=== PATIENT | male | born 1945 | race African-American/Black ===

== ENCOUNTER → 2020-09-02 10:50 | Outpatient (BNVA) | payer MEDICARE, MEDICAID, SELFPAY | PROVIDERS: PCP Internal Medicine; Visit Provider Internal Medicine Gastroenterology | DX: K31.819 Angiodysplasia of stomach and duodenum without bleeding (principal); K21.9 Gastro-esophageal reflux disease without esophagitis; D50.0 Iron deficiency anemia secondary to blood loss (chronic); R13.10 Dysphagia, unspecified; Z79.899 Other long term (current) drug therapy; Z87.891 Personal history of nicotine dependence | CPT/HCPCS: Q3014 ==

== ENCOUNTER 2020-09-07 10:09 | Outpatient (REF) | payer MEDICARE, MEDICAID, SELFPAY ==
[2020-09-07 10:44] LABS: MANUAL DIFF FLAG NO
[2020-09-07 10:52] LABS: INTERNATIONAL NORM RATIO 1.1 (0.9-1.1); Prothrombin Time 12.8 SEC (10.8-13.0)
[2020-09-07 10:53] LABS: Basophils Percent Auto 0.4 % (0-2); Eosinophils Absolute Auto 0.1 X10*3/uL (0.0-0.4); Hematocrit 41.1 % (42-52); Hemoglobin 12.8 g/dl (14.0-18.0); Imm Gran Abs Auto 0.01 X10*3/uL (0.00-0.03); Imm Gran Pct Auto 0.1 % (0.0-0.4); Lymphocytes Absolute Auto 1.2 X10*3/uL (1.2-4.9); Mean Corpuscular HGB Conc 31.1 g/dl (31.0-36.0); Mean Corpuscular Hemoglobin 29.4 pg (27.0-33.0); Mean Corpuscular Volume 94.5 fL (80-98); Mean Platelet Volume 8.9 fL (9.4-12.4); Monocytes Absolute Auto 0.5 X10*3/uL (0.1-1.2); Monocytes Percent Auto 7.2 % (2-11); Neutrophils Absolute Auto 5.2 X10*3/uL (2.0-8.3); Neutrophils Percent Auto 74.3 % (45-73); Platelet Count 230 X10*3/uL (160-400); Red Blood Count 4.35 X10*6/uL (4.60-5.80); Red Cell Distribution Width 12.8 % (11.0-16.0); White Blood Count 7.1 X10*3/uL (4.8-10.8)
[2020-09-07 11:18] LABS: Alanine Aminotransferase 11 U/L (0-40); Albumin Level 4.3 g/dL (3.5-5.0); Alkaline Phosphatase 77 U/L (39-117); Anion Gap 12 (12-20); Aspartate Amino Transferase 16 U/L (5-37); Bilirubin Total 0.4 mg/dL (0.0-1.0); Blood Urea Nitrogen 15 mg/dL (9-16); Calcium 9.5 mg/dL (8.4-10.2); Carbon Dioxide 32 mmol/L (22-29); Chloride 103 mmol/L (96-108); Estimated Glomerular Filt Rate > 60; Glucose Random 97 mg/dL (60-115); Lipase 10 U/L (8-78); Potassium 4.5 mmol/L (3.3-5.1); Sodium 142 mmol/L (135-145); Total Protein 6.8 g/dL (6.5-8.0)
[2020-09-07 11:37] LABS: Ferritin 33 ng/mL (20-250)
== END 2020-09-07 10:10 | disposition home or self-care (01) ==
LOC: HO.LAB 10:09
PROVIDERS: PCP Internal Medicine; Visit Provider Internal Medicine Gastroenterology
DX: D50.0 Iron deficiency anemia secondary to blood loss (chronic) (principal)
CPT/HCPCS: 36415; 80053; 82728; 83690; 85025; 85610

== ENCOUNTER 2020-09-21 13:50 | Outpatient (REF) | payer MEDICARE, MEDICAID, SELFPAY ==
[2020-09-21 14:13] LABS: OBS Int Ctl Valid YES; OBS1 POS (NEG); OBS2 POS (NEG); OBS3 POS (NEG)
== END 2020-09-21 13:51 | disposition home or self-care (01) ==
LOC: HO.LNP 13:50
PROVIDERS: Visit Provider Internal Medicine Gastroenterology
DX: D50.0 Iron deficiency anemia secondary to blood loss (chronic) (principal)
CPT/HCPCS: 82270

== ENCOUNTER → 2020-10-14 11:46 | Outpatient (BNVA) | payer MEDICARE, MEDICAID, SELFPAY | PROVIDERS: PCP Internal Medicine; Visit Provider Internal Medicine Gastroenterology | DX: Z13.89 Encounter for screening for other disorder (principal) | CPT/HCPCS: Q3014 ==

== ENCOUNTER 2020-10-20 20:38 | Emergency (ER) | payer MEDICARE, MEDICAID, SELFPAY ==
--- NOTE | ~2020-10-20 | CT_ITS ---
EXAMINATION: CT ABDOMEN AND PELVIS WITH CONTRAST CLINICAL INFORMATION: Abdominal pain. COMPARISON: 02/10/2013 TECHNIQUE: Multidetector volumetric images were obtained from the superior aspect of the liver through the pubic symphysis following administration 85 mL of Omnipaque 350 intravenous contrast. Sagittal and coronal reformatted images were obtained on the technologist's workstation. Oral contrast: No This CT examination was performed using dose optimization techniques as appropriate, variously including the following: *Automated exposure control *Adjustment of mA and/or kV according to patient size (this includes techniques or standardized protocols for targeted exams where dose is matched to indication/reason for exam; i.e. extremities or head) *Use of iterative reconstruction technique DLP: 778 mGy-cm FINDINGS: LUNG BASES: The visualized lung bases are unremarkable. Mild wall thickening is evident in the distal esophagus, potentially due to esophagitis. LIVER, GALLBLADDER, AND BILIARY TREE: The liver is normal in size, shape, and attenuation. No biliary ductal dilatation is present. Multiple small subcentimeter foci of hypoattenuation are again seen in the liver, most likely corresponding to small hepatic cysts. The largest of these measures 9 mm in diameter and in segment 4A and has a density of 13 Hounsfield units. Von Meyenburg complexes (biliary hamartomas) are also possible, though less likely. The gallbladder is unremarkable with no evidence of radiopaque gallstones, gallbladder wall thickening, or obvious pericholecystic inflammatory changes. PANCREAS: Unremarkable. SPLEEN: Unremarkable. ADRENAL GLANDS: Unremarkable. KIDNEYS AND URETERS: The kidneys are normal in size, shape, and attenuation. No hydronephrosis, hydroureter, or calculi seen. Trace bilateral perinephric stranding. BLADDER: Empty. There is associated bladder wall thickening with surrounding fat stranding, however, raising the possibility of cystitis. There is a small associated urachal remnant. GASTROINTESTINAL TRACT: As noted above, there is mild wall thickening the distal esophagus. Stomach, small bowel, and colon are normal in caliber. There is mild to moderate colonic diverticulosis. In the proximal descending colon around the splenic flexure, there is wall thickening and trace surrounding fat stranding which could be due to very mild colitis. The specificity of this is somewhat limited given the collapsed, decompressed nature of the colon in this region. Appendix is normal. No intraperitoneal free fluid or free air. ABDOMINAL WALL: Small fat-containing umbilical hernia. LYMPH NODES: Normal. VASCULAR: Atherosclerotic calcifications are present in the abdominal aorta. No aneurysmal dilatation. PELVIC VISCERA: The prostate and seminal vesicles are unremarkable. OSSEOUS STRUCTURES: Marked degenerative disc disease is evident in the lower lumbar spine at L4-L5 and L5-S1. No acute osseous abnormalities. Mild osteoarthritis in the hips and SI joints. CT/CT abdomen pelvis w con IMPRESSION: 1. Mild to moderate colonic diverticulosis without evidence of acute diverticulitis. There is mild generalized wall thickening in the proximal descending colon with trace haziness of the surrounding fat. This is favored to be due to nondistention of an empty segment of colon, though mild colitis is possible, particularly if the patient has the corresponding lower GI symptoms. 2. Wall thickening and surrounding fat stranding at an empty bladder. Recommend correlation with urinalysis is this may correspond to bladder inflammation/cystitis. 3. Marked degenerative disc disease in the lower lumbar spine.
[2020-10-20 23:30] VITALS: BP 103/57; PULSE 80; RESP 18; TEMP 36.1; O2SAT 99
[2020-10-21 00:43] VITALS: BP 131/72; PULSE 82; RESP 18; TEMP 36.9; O2SAT 98; BMI 35.4
[2020-10-21 01:11] LABS: Basophils Percent Auto 0.1 % (0-2); Eosinophils Percent Auto 0.2 % (0-4); Hemoglobin 12.7 g/dl (14.0-18.0); Imm Gran Abs Auto 0.03 X10*3/uL (0.00-0.03); Imm Gran Pct Auto 0.3 % (0.0-0.4); Lymphocytes Percent Auto 10.5 % (20-40); MANUAL DIFF FLAG NO; Mean Corpuscular HGB Conc 31.8 g/dl (31.0-36.0); Mean Corpuscular Volume 94.6 fL (80-98); Mean Platelet Volume 8.4 fL (9.4-12.4); Monocytes Absolute Auto 0.6 X10*3/uL (0.1-1.2); Monocytes Percent Auto 5.8 % (2-11); Neutrophils Absolute Auto 7.8 X10*3/uL (2.0-8.3); Neutrophils Percent Auto 83.1 % (45-73); Platelet Count 188 X10*3/uL (160-400); Red Blood Count 4.23 X10*6/uL (4.60-5.80); Red Cell Distribution Width 13.2 % (11.0-16.0); White Blood Count 9.4 X10*3/uL (4.8-10.8)
[2020-10-21 01:13] LABS: Appearance Urine CLEAR; Color Urine DARK YELLOW; Glucose Urine UA NEG (NEG); Leukocyte Esterase Urine NEG (NEG); Nitrite Urine NEG (NEG); PH 5.5 (5.0-8.0); Specific Gravity - Urine >= 1.030 (1.005-1.025); UACC CULT NO; Urine Blood NEG (NEG); Urine Ketones 5 MG/DL (NEG); Urine Protein NEG (NEG-TRACE)
[2020-10-21 01:37] LABS: Calcium Oxalate Crystals Urine 2+ /LPF; Mucus Urine 2+ /LPF; RBC Urine 0 /HPF (0); Squamous Epithelial Cell Urine TRACE /LPF; WBC Urine 0-2 /HPF (0-4)
[2020-10-21 01:39] LABS: Alanine Aminotransferase 15 U/L (0-40); Albumin Level 4.3 g/dL (3.5-5.0); Alkaline Phosphatase 70 U/L (39-117); Anion Gap 9 (12-20); Aspartate Amino Transferase 15 U/L (5-37); Bilirubin Total 0.6 mg/dL (0.0-1.0); Blood Urea Nitrogen 14 mg/dL (9-16); Carbon Dioxide 32 mmol/L (22-29); Chloride 103 mmol/L (96-108); Creatinine Clr Calc Pharmacy 87.5; Estimated Glomerular Filt Rate > 60; Glucose Random 118 mg/dL (60-115); Lipase 5 U/L (8-78); Sodium 140 mmol/L (135-145); Total Protein 6.6 g/dL (6.5-8.0)
--- NOTE | 2020-10-21 02:06 | ED.ABDPAIN ---
HPI - Abdominal Pain General Chief Complaint: Abdominal Pain Stated Complaint: Abd Pain Time Seen by Provider: 10/21/20 02:05 History of Present Illness HPI narrative: Patient is a 75-year-old male presents today with having abdominal pain over the lower abdomen. There is no fever no chills. The pain is bloating like. Patient had diarrhea x1 which was yellow. No bloody stool. No coughing or congestion or upper respiratory symptoms. No diaphoresis. Patient is from home. No surgery to the abdomen in the past. The symptom has improved with time. There is no change in diet. Patient vomited x1 as well Related Data Home Medications Medication Instructions Recorded Confirmed abiraterone 250 mg tablet 1,000 mg PO DAILY tab 09/02/20 10/14/20 amitriptyline 50 mg tablet 50 mg PO BEDTIME 09/02/20 10/14/20 ascorbic acid (vitamin C) 500 mg 500 mg PO DAILY 09/02/20 10/14/20 tablet aspirin 81 mg chewable tablet 81 mg PO DAILY 09/02/20 10/14/20 ferrous sulfate 325 mg (65 mg 325 mg PO DAILY 09/02/20 10/14/20 iron) tablet leuprolide (3 month) 22.5 mg (3 22.5 mg IM [id number] 09/02/20 10/14/20 month) intramuscular syringe kit omeprazole 40 mg capsule,delayed 40 mg PO DAILY 09/02/20 10/14/20 release prednisone 5 mg tablet 5 mg PO BID 09/02/20 10/14/20 sacubitril 24 mg-valsartan 26 mg 1 tab PO BID 09/02/20 10/14/20 tablet simvastatin 80 mg tablet 80 mg PO DAILY 09/02/20 10/14/20 spironolactone 25 mg tablet 25 mg PO DAILY 09/02/20 10/14/20 Allergies Allergy/AdvReac Type Severity Reaction Status Date / Time acetaminophen [From TYLENOL] AdvReac Unknown CAN'T TAKE Verified 10/14/20 11:47 BECAUSE OF A HEART CONDITION PER PT ibuprofen [IBUPROFEN] AdvReac Unknown CAN'T TAKE Verified 10/14/20 11:47 BECAUSE OF LIVER PROBLEMS PER PT. Review of Systems Review of Systems Constitutional: No Weight loss, No Fever, No Chills, No Night Sweats, No Fatigue, No Malaise ENT/Mouth: No Hearing loss, No Ear Pain, No Nasal Congestion, No Sinus Pain, No Hoarseness, No sore throat, No Rhinorrhea, No Swallowing Difficulty Eyes: No Eye Pain, No Swelling, No Redness, No Foreign Body, No Discharge, No Vision Changes Cardiovascular: No Chest Pain, No SOB, No Dyspnea on Exertion, No Orthopnea, No Edema, No Palpitations Respiratory: No Cough, No Sputum, No Wheezing, No Smoke Exposure, No Dyspnea Gastrointestinal: Positive nausea vomiting positive diarrhea positive abdominal pain Genitourinary: no irregular bleeding, No Dysuria, No Urinary Frequency, No Hematuria, No Urinary Incontinence, No Urgency, No Flank Pain, No Urinary Flow Changes, No Hesitancy Musculoskeletal: No joint pain, No Myalgias, No Joint Swelling Skin: No Skin Lesions, No rash Neuro: No Weakness, No Numbness, No Paresthesias, No Loss of Consciousness, No Dizziness, No Headache Psych: No Anxiety/Panic, No Depression, No SI/HI/AH/VH, No Social Issues, Heme/Lymph: No Bruising, No Bleeding,No Lymphadenopathy Endocrine: No Polyuria, No Polydipsia, No Temperature Intolerance Physical Exam Vital Signs: Vital Signs: Last Vital Signs Temp 98.4 F 10/21/20 00:43 Pulse 82 10/21/20 00:43 Resp 18 10/21/20 00:43 BP 131/72 10/21/20 00:43 Pulse Ox 98 10/21/20 00:43 Body Mass Index 35.4 Appearance: Alert. Oriented X3. No acute distress. Eyes: Pupils equal, round and reactive to light. ENT: Pharynx normal. Neck: Normal inspection. Neck supple. No lymph nodes noted. No crepitus CVS: Normal heart rate and rhythm. Pulses normal. Normal S1 and S2 Respiratory: No respiratory distress. Breath sounds normal. No Wheezing. No rales Abdomen: Soft and nontender. No rigidity. No distention. good BS x4 Skin: Skin warm and dry. Normal skin color. Normal skin turgor. Extremities: No lower extremity edema. Neurovascular intact to all extremities. No Lacerations. No Rash Neuro: Oriented X 3. No motor deficit. No sensory deficit. Moving all extermities. No slurred speech MDM - Abdominal Pain MDM Narrative Medical decision making narrative: Patient's white count was normal. CT scan of the abdomen did not show any acute evidence of diverticulitis. No abscess no perforation. No evidence of appendicitis. Will obtain bladder scan to ensure patient does not have obstruction. Will discharge patient home. Close follow-up outpatient basis. In stable condition. Patient's postvoid residual came back at 22. There is no evidence of urinary retention. Patient is to be discharged. Differential Diagnosis Differential diagnosis: Likely abdominal pain, aortic dissection, acute appendicitis, bowel perforation, calculus of kidney, constipation, diverticulitis, endometriosis, gastroenteritis, mesenteric ischemia, pancreatitis, peptic ulcer disease, renal colic and small bowel obstruction Medical Records Attestation: I reviewed the patient's medical records. Lab Data Attestation: I reviewed the patient's lab results. Result diagrams: 10/21/20 01:05 10/21/20 01:05 Labs: Lab Results 10/21/20 10/21/20 10/21/20 Range/Units 01:05 01:05 01:05 WBC 9.4 (4.8-10.8) X10*3/uL RBC 4.23 L (4.60-5.80) X10*6/uL Hgb 12.7 L (14.0-18.0) g/dl Hct 40.0 L (42-52) % MCV 94.6 (80-98) fL MCH 30.0 (27.0-33.0) pg MCHC 31.8 (31.0-36.0) g/dl RDW 13.2 (11.0-16.0) % Plt Count 188 (160-400) X10*3/uL MPV 8.4 L (9.4-12.4) fL Immature Gran % (Auto) 0.3 (0.0-0.4) % Neut % (Auto) 83.1 H (45-73) % Lymph % (Auto) 10.5 L (20-40) % [place] % (Auto) 5.8 (2-11) % Eos % (Auto) 0.2 (0-4) % Baso % (Auto) 0.1 (0-2) % Lymph # (Auto) 1.0 L (1.2-4.9) X10*3/uL [place] # (Auto) 0.6 (0.1-1.2) X10*3/uL Eos # (Auto) 0.0 (0.0-0.4) X10*3/uL Baso # (Auto) 0.0 (0.0-0.2) X10*3/uL Abs Immat Gran (auto) 0.03 (0.00-0.03) X10*3/uL Absolute Neuts (auto) 7.8 (2.0-8.3) X10*3/uL Absolute Nucleated RBC 0.000 (0.0-0.012) X10*3/uL Nucleated RBC % (auto) 0.0 (0.0-0.2) /100WBC Hold Blue Top SEE NOTE Sodium 140 (135-145) mmol/L Potassium 4.0 (3.3-5.1) mmol/L Chloride 103 (96-108) mmol/L Carbon Dioxide 32 H (22-29) mmol/L Anion Gap 9 L (12-20) BUN 14 (9-16) mg/dL Creatinine 0.90 (0.5-1.4) mg/dL Estim Creat Clear Calc 87.5 Estimated GFR > 60 Random Glucose 118 H (60-115) mg/dL Calcium 9.0 (8.4-10.2) mg/dL Total Bilirubin 0.6 (0.0-1.0) mg/dL AST 15 (5-37) U/L ALT 15 (0-40) U/L Alkaline Phosphatase 70 (39-117) U/L Total Protein 6.6 (6.5-8.0) g/dL Albumin 4.3 (3.5-5.0) g/dL Lipase 5 L (8-78) U/L Urine Color Urine Appearance Urine pH (5.0-8.0) Ur Specific [place] (1.005-1.025) Urine Protein (NEG-TRACE) MG/DL Urine Glucose (UA) (NEG) MG/DL Urine Ketones (NEG) MG/DL Urine Blood (NEG) Urine Nitrite (NEG) Ur Leukocyte Esterase (NEG) Urine RBC (0) /HPF Urine WBC (0-4) /HPF Ur Squamous Epith Cells /LPF Calcium Oxalate Crystal /LPF Urine Bacteria /LPF Urine Mucus /LPF 10/21/20 Range/Units 01:06 WBC (4.8-10.8) X10*3/uL RBC (4.60-5.80) X10*6/uL Hgb (14.0-18.0) g/dl Hct (42-52) % MCV (80-98) fL MCH (27.0-33.0) pg MCHC (31.0-36.0) g/dl RDW (11.0-16.0) % Plt Count (160-400) X10*3/uL MPV (9.4-12.4) fL Immature Gran % (Auto) (0.0-0.4) % Neut % (Auto) (45-73) % Lymph % (Auto) (20-40) % [place] % (Auto) (2-11) % Eos % (Auto) (0-4) % Baso % (Auto) (0-2) % Lymph # (Auto) (1.2-4.9) X10*3/uL [place] # (Auto) (0.1-1.2) X10*3/uL Eos # (Auto) (0.0-0.4) X10*3/uL Baso # (Auto) (0.0-0.2) X10*3/uL Abs Immat Gran (auto) (0.00-0.03) X10*3/uL Absolute Neuts (auto) (2.0-8.3) X10*3/uL Absolute Nucleated RBC (0.0-0.012) X10*3/uL Nucleated RBC % (auto) (0.0-0.2) /100WBC Hold Blue Top Sodium (135-145) mmol/L Potassium (3.3-5.1) mmol/L Chloride (96-108) mmol/L Carbon Dioxide (22-29) mmol/L Anion Gap (12-20) BUN (9-16) mg/dL Creatinine (0.5-1.4) mg/dL Estim Creat Clear Calc Estimated GFR Random Glucose (60-115) mg/dL Calcium (8.4-10.2) mg/dL Total Bilirubin (0.0-1.0) mg/dL AST (5-37) U/L ALT (0-40) U/L Alkaline Phosphatase (39-117) U/L Total Protein (6.5-8.0) g/dL Albumin (3.5-5.0) g/dL Lipase (8-78) U/L Urine Color DARK YELLOW Urine Appearance CLEAR Urine pH 5.5 (5.0-8.0) Ur Specific [place] >= 1.030 H (1.005-1.025) Urine Protein NEG (NEG-TRACE) MG/DL Urine Glucose (UA) NEG (NEG) MG/DL Urine Ketones 5 (NEG) MG/DL Urine Blood NEG (NEG) Urine Nitrite NEG (NEG) Ur Leukocyte Esterase NEG (NEG) Urine RBC 0 (0) /HPF Urine WBC 0-2 (0-4) /HPF Ur Squamous Epith Cells TRACE /LPF Calcium Oxalate Crystal 2+ /LPF Urine Bacteria NONE /LPF Urine Mucus 2+ /LPF Discharge Plan Discharge Clinical Impression: Abdominal pain Patient Disposition: Home, Self-Care Instructions: Abdominal Pain (ED) Prescriptions: No Action simvastatin 80 mg tablet 80 mg PO DAILY RF: 0 omeprazole 40 mg capsule,delayed release(DR/EC) 40 mg PO DAILY RF: 0 spironolactone 25 mg tablet 25 mg PO DAILY RF: 0 amitriptyline 50 mg tablet 50 mg PO BEDTIME RF: 0 Lupron Depot (3 month) 22.5 mg syringe kit 22.5 mg IM [id number] RF: 0 ferrous sulfate 325 mg (65 mg iron) tablet 325 mg PO DAILY RF: 0 prednisone 5 mg tablet 5 mg PO BID RF: 0 abiraterone [Zytiga] 250 mg tablet 1,000 mg PO DAILY RF: 0 aspirin 81 mg tablet,chewable 81 mg PO DAILY RF: 0 sacubitril-valsartan 24-26 mg tablet 1 tab PO BID RF: 0 ascorbic acid (vitamin C) 500 mg tablet 500 mg PO DAILY RF: 0 PMFSH Past Medical History Medical History Depression History of lung cancer History of prostate cancer OA (osteoarthritis) of shoulder Surgical History History of esophagogastroduodenoscopy (EGD) History of surgery of head Hx of colonoscopy Hx of hernia repair Family History Family History Father History of prostate cancer Brother History of prostate cancer History of throat cancer Mother No problems noted. Social History Social History Household Members: Spouse Alcohol intake: current Alcohol intake frequency: does not drink Smoking Status: Never smoker Advance Directives: No Current occupational status: disabled
[2020-10-21 03:38] VITALS: BP 99/49; PULSE 75; RESP 16; O2SAT 97
== END 2020-10-21 03:42 | disposition home or self-care (01) ==
PROVIDERS: Emergency Provider Emergency Medicine Emergency Medical Services; PCP Internal Medicine
DX: R10.30 Lower abdominal pain, unspecified (principal); Z85.118 Personal history of other malignant neoplasm of bronchus and lung; Z85.46 Personal history of malignant neoplasm of prostate
CPT/HCPCS: 36415; 51798; 74177; 80053; 81001; 83690; 85025; 99284; Q9967

== ENCOUNTER → 2021-01-27 13:52 | Outpatient (BNVA) | payer MEDICARE, MEDICAID, SELFPAY | PROVIDERS: PCP Internal Medicine; Visit Provider Internal Medicine Gastroenterology | DX: Z13.89 Encounter for screening for other disorder (principal) | CPT/HCPCS: Q3014 ==

== ENCOUNTER → 2021-06-02 14:10 | Outpatient (BNVA) | payer MEDICARE, MEDICAID, SELFPAY | PROVIDERS: PCP Internal Medicine; Visit Provider Internal Medicine Gastroenterology | DX: Z13.89 Encounter for screening for other disorder (principal) | CPT/HCPCS: Q3014 ==

== ENCOUNTER 2021-06-24 11:42 | Outpatient (REF) | payer MEDICARE, MEDICAID, SELFPAY ==
--- NOTE | ~2021-06-24 | XR_ITS ---
EXAMINATION: XR CHEST CLINICAL INFORMATION: Nonspecific reaction to skin test for TB. COMPARISON: Chest radiograph dated from 11/24/2019. TECHNIQUE: 2 views of the chest were obtained. FINDINGS: Left-sided pacemaker/AICD with single lead in similar positioning to prior overlying the right ventricle. Unchanged appearance of the cardiomediastinal silhouette. On the lateral view, there is a posterior airspace opacity overlying the lung bases. Otherwise, lungs are clear. No pleural effusions or pneumothorax. No acute osseous abnormalities. Thoracic spondylosis. XR/XR chest 2V IMPRESSION: Questionable airspace opacity in the posterior aspect of the lung bases on the lateral view which could potentially be artifactual and related with silhouetting from an asymmetrically elevated left hemidiaphragm. However, an infiltrate and pneumonia cannot be entirely excluded. Correlate clinically and if indicated consider correlation with a CT chest.
== END 2021-06-24 11:43 | disposition home or self-care (01) ==
LOC: HO.XRAY 11:42
PROVIDERS: PCP Internal Medicine; Visit Provider Internal Medicine
DX: R76.11 Nonspecific reaction to tuberculin skin test without active tuberculosis (principal)
CPT/HCPCS: 71046

== ENCOUNTER 2021-09-09 11:29 | Emergency (ER) | payer MEDICARE, MEDICAID, SELFPAY ==
--- NOTE | ~2021-09-09 | XR_ITS ---
EXAMINATION: XR CHEST CLINICAL INFORMATION: Cough COMPARISON: Chest x-ray 06/24/2021 TECHNIQUE: 2 views of the chest were obtained. FINDINGS: Cardiac silhouette demonstrates stable prominence. Unchanged orientation of single lead AICD. The lungs are adequately aerated. There is no lobar consolidation. No pleural effusion or pneumothorax. XR/XR chest 2V IMPRESSION: No acute pulmonary pathology.
[2021-09-09 11:34] VITALS: BP 116/63; PULSE 94; RESP 16; TEMP 36.9; O2SAT 98; BMI 34.2
--- NOTE | 2021-09-09 13:21 | PC.NURSE ---
pt not in mwr or tx area after xray, belongings not present either, pt elouped.
--- NOTE | 2021-09-09 14:10 | ED_ITS ---
HPI - General Adult General Chief complaint: General Medical Stated complaint: GROWTH IN CHEST Time Seen by Provider: 09/09/21 12:00 History of Present Illness HPI narrative: Maori speaking patient was brought to a room, x-ray was ordered and then patient left the department, he never spoke to him and cannot offer a chief complaint as the patient was gone Related Data Home Medications Medication Instructions Recorded Confirmed abiraterone 250 mg tablet 1,000 mg PO DAILY tab 09/02/20 06/02/21 (Zytiga) amitriptyline 50 mg tablet 50 mg PO BEDTIME 09/02/20 06/02/21 ascorbic acid (vitamin C) 500 mg 500 mg PO DAILY 09/02/20 06/02/21 tablet aspirin 81 mg chewable tablet 81 mg PO DAILY 09/02/20 06/02/21 ferrous sulfate 325 mg (65 mg 325 mg PO DAILY 09/02/20 06/02/21 iron) tablet leuprolide (3 month) 22.5 mg (3 22.5 mg IM [id number] 09/02/20 06/02/21 month) intramuscular syringe kit (Lupron Depot) omeprazole 40 mg capsule,delayed 40 mg PO DAILY 09/02/20 06/02/21 release prednisone 5 mg tablet 5 mg PO BID 09/02/20 06/02/21 sacubitril 24 mg-valsartan 26 mg 1 tab PO BID 09/02/20 06/02/21 tablet simvastatin 80 mg tablet 80 mg PO DAILY 09/02/20 06/02/21 spironolactone 25 mg tablet 25 mg PO DAILY 09/02/20 06/02/21 Allergies Allergy/AdvReac Type Severity Reaction Status Date / Time acetaminophen [From AdvReac Unknown CAN'T TAKE Verified 06/02/21 14:12 TYLENOL] BECAUSE OF A HEART CONDITION PER PT ibuprofen [IBUPROFEN] AdvReac Unknown CAN'T TAKE Verified 06/02/21 14:12 BECAUSE OF LIVER PROBLEMS PER PT. PMFSH Past Medical History Medical History Depression History of lung cancer History of prostate cancer OA (osteoarthritis) of shoulder Surgical History History of esophagogastroduodenoscopy (EGD) History of surgery of head Hx of colonoscopy Hx of hernia repair Family History Family History Father History of prostate cancer Brother History of prostate cancer History of throat cancer Mother No problems noted. Social History Social History Household Members: Spouse Alcohol intake: current Alcohol intake frequency: does not drink Advance Directives: No Advance Directives Information Provided: No Current occupational status: disabled Physical Exam Verdana 4l Vital Signs: Verdana 4d Verdana 4d Vital Signs: Verdana 4d Verdana 4Bd Last Vital Signs Verdana 4d Proof Sorter New 4d Proof Sorter New 4d Temp 98.5 F 09/09/21 11:34 Proof Sorter New 4d Pulse 94 09/09/21 11:34 Proof Sorter New 4d Resp 16 09/09/21 11:34 BP 116/63 09/09/21 11:34 Pulse Ox 98 09/09/21 11:34 BMI result Body Mass Index 34.2 Course Course Course Narrative: And never did history of physical on this patient he was brought to the room and got a chest x-ray and then left the department I did review his chest x-ray which was read by the [facility] radiologist and did not reveal any mass or any abnormality Discharge Plan Discharge Clinical Impression: H/O chest x-ray Patient Disposition: Elopement Prescriptions: No Action simvastatin 80 mg tablet 80 mg PO DAILY 0RF omeprazole 40 mg capsule,delayed release(DR/EC) 40 mg PO DAILY 0RF spironolactone 25 mg tablet 25 mg PO DAILY 0RF amitriptyline 50 mg tablet 50 mg PO BEDTIME 0RF Lupron Depot (3 month) 22.5 mg syringe kit 22.5 mg IM [id number] 0RF ferrous sulfate 325 mg (65 mg iron) tablet 325 mg PO DAILY 0RF prednisone 5 mg tablet 5 mg PO BID 0RF abiraterone [Zytiga] 250 mg tablet 1,000 mg PO DAILY 0RF Rx Instructions: must be taken on empty stomach, at least 1 hr before or 2 hrs after a meal/food aspirin 81 mg tablet,chewable 81 mg PO DAILY 0RF sacubitril-valsartan 24-26 mg tablet 1 tab PO BID 0RF ascorbic acid (vitamin C) 500 mg tablet 500 mg PO DAILY 0RF Discharge Date/Time: 09/09/21 13:20
== END 2021-09-09 13:20 | disposition left against medical advice (07) ==
PROVIDERS: Emergency Provider Emergency Medicine; PCP Internal Medicine
DX: Z85.118 Personal history of other malignant neoplasm of bronchus and lung (principal); Z85.46 Personal history of malignant neoplasm of prostate; I10 Essential (primary) hypertension; K21.9 Gastro-esophageal reflux disease without esophagitis; D50.0 Iron deficiency anemia secondary to blood loss (chronic)
CPT/HCPCS: 71046; 99282; 99283

== ENCOUNTER 2021-10-13 09:43 | Emergency (ER) | payer MEDICARE, MEDICAID, SELFPAY ==
[2021-10-13 09:47] VITALS: BP 114/69; PULSE 76; RESP 16; TEMP 36.8; O2SAT 98; BMI 35.6
[2021-10-13 10:03] VITALS: BP 132/68; PULSE 68; RESP 16; TEMP 36.9; O2SAT 96
--- NOTE | 2021-10-13 10:07 | ED_ITS ---
HPI - General Adult General Chief complaint: General Medical Stated complaint: medication Time Seen by Provider: 10/13/21 09:57 Source: patient Mode of arrival: ambulatory Limitations: no limitations History of Present Illness HPI narrative: 76 y/o male with history of ischemic cardiomyopathy, HTN, duodenal AVMs, esophageal dysphagia, GERD, iron deficiency anemia, prostate cancer who presents to the ER for a CT scan. He states he was called by his PCP legal secretary receptionist today and told to come to the ER for a CT scan. He cannot say with the CT scan was for. He states he has prostate cancer that is being followed and he has not had any treatment for it yet. He states he has lesions in his liver. He states there was concern for lesions in the back as well. He denies any severe back pain. He is on chronic opiates and states his pain is well controlled. He has no fever, chills, chest pain, shortness of breath, vomiting, urinary incontinence, weakness, numbness. MD complaint: CT scan Onset (ago): unknown Location: back Radiation: non-radiation Severity: moderate Severity scale (1-10): 5 Quality: aching Pain Consistency: intermittent Relieving factors: medication Exacerbating factors: none Associated symptoms: denies other symptoms Treatments prior to arrival: none Related Data Home Medications Medication Instructions Recorded Confirmed abiraterone 250 mg tablet (Zytiga) 1,000 mg PO DAILY tab 09/02/20 06/02/21 amitriptyline 50 mg tablet 50 mg PO BEDTIME 09/02/20 06/02/21 ascorbic acid (vitamin C) 500 mg 500 mg PO DAILY 09/02/20 06/02/21 tablet aspirin 81 mg chewable tablet 81 mg PO DAILY 09/02/20 06/02/21 ferrous sulfate 325 mg (65 mg 325 mg PO DAILY 09/02/20 06/02/21 iron) tablet leuprolide (3 month) 22.5 mg (3 22.5 mg IM [id number] 09/02/20 06/02/21 month) intramuscular syringe kit (Lupron Depot) omeprazole 40 mg capsule,delayed 40 mg PO DAILY 09/02/20 06/02/21 release prednisone 5 mg tablet 5 mg PO BID 09/02/20 06/02/21 sacubitril 24 mg-valsartan 26 mg 1 tab PO BID 09/02/20 06/02/21 tablet simvastatin 80 mg tablet 80 mg PO DAILY 09/02/20 06/02/21 spironolactone 25 mg tablet 25 mg PO DAILY 09/02/20 06/02/21 Allergies Allergy/AdvReac Type Severity Reaction Status Date / Time acetaminophen [From TYLENOL] AdvReac Unknown CAN'T TAKE Verified 06/02/21 14:12 BECAUSE OF A HEART CONDITION PER PT ibuprofen [IBUPROFEN] AdvReac Unknown CAN'T TAKE Verified 06/02/21 14:12 BECAUSE OF LIVER PROBLEMS PER PT. Review of Systems Review of Systems: Constitutional: No Fever, No Chills ENT/Mouth: No sore throat, No Rhinorrhea Cardiovascular: No Chest Pain, No SOB Respiratory: No Cough, No Sputum Gastrointestinal: No Nausea, No Vomiting, No Diarrhea, No abdominal Pain, No Hematochezia, No Melena Genitourinary: No Dysuria, No Urinary Frequency, No Hematuria, No incontinence Musculoskeletal: No joint pain, No Myalgias Skin: No Skin Lesions, No rash Neuro: No Weakness, No Numbness, No Dizziness, No Headache Heme/Lymph: No Bruising, No Lymphadenopathy Endocrine: No Polyuria, No Polydipsia PMFSH Past Medical History Medical History Depression History of lung cancer History of prostate cancer OA (osteoarthritis) of shoulder Surgical History History of esophagogastroduodenoscopy (EGD) History of surgery of head Hx of colonoscopy Hx of hernia repair Family History Family History Father History of prostate cancer Brother History of prostate cancer History of throat cancer Mother No problems noted. Social History Social History Household Members: Spouse Alcohol intake: current Alcohol intake frequency: does not drink Current occupational status: disabled Physical Exam ED Vital Signs: Vital Signs - 24 hr 10/13/21 09:47 10/13/21 10:03 Temperature 98.2 F 98.4 F Pulse Rate 76 68 Respiratory Rate 16 16 Blood Pressure 114/69 132/68 Pulse Oximetry 98 96 BMI result Body Mass Index 35.6 Appearance: Alert. Oriented X3. No acute distress. Eyes: Pupils equal, round and reactive to light. ENT: Pharynx normal. Neck: Normal inspection. Neck supple. CVS: Normal heart rate and rhythm. Pulses normal. Respiratory: No respiratory distress. Breath sounds normal. Abdomen: Obese, Soft and nontender. +BS x4 Back: no low back tenderness. Normal ROM Skin: Skin warm and dry. Normal skin color. Normal skin turgor. No rashes. Extremities: No lower extremity edema. No calf tenderness. Neuro: Oriented X 3. No motor deficit. No sensory deficit. Course Course Course Narrative: 76-year-old male with a history of HTN, ischemic cardiomyopathy, duodenal AVMs, iron deficiency anemia, prostate cancer with concern for metastasis to the bone presents to the ER for a CT scan. He is a poor historian and states that Dr. Zavala is office sent him into the ER for CT scan today. He states they think that he might have cancer in his back. He needs a biopsy per his report. He has no point min yet for this. He follows with Oncology at [facility] per his report. He denies any severe back pain, any red flag symptoms for low back pain. He admits to some urinary hesitancy but that has been chronic. He has no signs or symptoms of infection. Will call Dr. Zavala's office to see why he was sent to the ER. Reevaluation(s) Reevaluation #1: Spoke with Dr. diez as office nurse who denies the patient was contacted today. There is a note from October 05 stating the patient called for medication refill. When spoke with the patient again he states that he was told to come to the hospital at 10:[address] scan. We confirmed with outpatient radiology that the patient has an outpatient CT scan order. There is no emergent need for a CT scan done in the emergency department. Will discharge the patient from the ER to outpatient radiology for CT scan now. Patient agrees with plan. Critical Care Time Critical Care Time Critical Care Time: No Discharge Plan Discharge Clinical Impression: Prostate cancer Patient Disposition: Home, Self-Care Instructions: Prostate Cancer (DC) Additional Instructions: Upon discharge from the ER present directly to outpatient radiology for your ordered CT scan. Follow-up with your primary care doctor and your oncologist. Prescriptions: No Action simvastatin 80 mg tablet 80 mg PO DAILY 0RF omeprazole 40 mg capsule,delayed release(DR/EC) 40 mg PO DAILY 0RF spironolactone 25 mg tablet 25 mg PO DAILY 0RF amitriptyline 50 mg tablet 50 mg PO BEDTIME 0RF Lupron Depot (3 month) 22.5 mg syringe kit 22.5 mg IM [id number] 0RF ferrous sulfate 325 mg (65 mg iron) tablet 325 mg PO DAILY 0RF prednisone 5 mg tablet 5 mg PO BID 0RF abiraterone [Zytiga] 250 mg tablet 1,000 mg PO DAILY 0RF Rx Instructions: must be taken on empty stomach, at least 1 hr before or 2 hrs after a meal/food aspirin 81 mg tablet,chewable 81 mg PO DAILY 0RF sacubitril-valsartan 24-26 mg tablet 1 tab PO BID 0RF ascorbic acid (vitamin C) 500 mg tablet 500 mg PO DAILY 0RF Referrals: Renata Duckworth MD [Primary Care Provider] - 1 week
== END 2021-10-13 10:54 | disposition home or self-care (01) ==
LOC: HO.ED 10:47
PROVIDERS: Emergency Provider Emergency Medicine; PCP Internal Medicine
DX: C61 Malignant neoplasm of prostate (principal); I10 Essential (primary) hypertension; I25.5 Ischemic cardiomyopathy
CPT/HCPCS: 99283

== ENCOUNTER 2021-10-13 10:47 | Outpatient (REF) | payer MEDICARE, MEDICAID, SELFPAY ==
--- NOTE | ~2021-10-13 | CT_ITS ---
EXAMINATION: CT CHEST WITHOUT CONTRAST CLINICAL INFORMATION: Prostate cancer COMPARISON: No prior chest CT . Abdominal CT 10/21/2020. TECHNIQUE: Multidetector volumetric CT imaging of the chest was done. Axial MIP volume rendering provided. Sagittal and coronal reformatted images were obtained. This CT examination was performed using dose optimization techniques as appropriate, variously including the following: *Automated exposure control *Adjustment of mA and/or kV according to patient size (this includes techniques or standardized protocols for targeted exams where dose is matched to indication/reason for exam; i.e. 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 LUNGS: The central airways are patent. Minimal basilar atelectasis bilaterally. No dense consolidation. No pneumothorax. No pulmonary nodules. MEDIASTINUM: Normal heart size. Coronary artery calcifications noted. Pacer lead is seen at the right ventricle. No pericardial effusion. No mediastinal lymphadenopathy. The thyroid gland is unremarkable. PLEURA: There is no pleural effusion. No pleural mass or thickening. AXILLA: No lymphadenopathy. UPPER ABDOMEN: 1.6 cm right adrenal gland nodule, new from the prior. This is indeterminant by Hounsfield unit measurement. OSSEOUS STRUCTURES: No acute or suspicious osseous abnormality. Mild degenerative changes of the spine. No osseous lesions. CT/CT chest wo con IMPRESSION: No suspicious findings within the chest to suggest metastatic disease. There is a new right adrenal gland nodule which measures 1.6 cm when compared to prior CT from 10/21/2020. This does raise concern for metastatic disease. Fleischner guidelines were followed.
== END 2021-10-13 10:48 | disposition home or self-care (01) ==
LOC: HO.CT 10:47
PROVIDERS: PCP Internal Medicine; Visit Provider Internal Medicine
DX: C61 Malignant neoplasm of prostate (principal)
CPT/HCPCS: 71250

== ENCOUNTER → 2021-11-17 12:44 | Outpatient (BNVA) | payer MEDICARE, MEDICAID, SELFPAY | PROVIDERS: PCP Internal Medicine; Referring Provider Internal Medicine; Visit Provider Internal Medicine Gastroenterology | DX: D50.0 Iron deficiency anemia secondary to blood loss (chronic) (principal); K31.819 Angiodysplasia of stomach and duodenum without bleeding; R13.10 Dysphagia, unspecified; R10.30 Lower abdominal pain, unspecified; Z86.010 Personal history of colon polyps; Z79.899 Other long term (current) drug therapy | CPT/HCPCS: 99212 ==

== ENCOUNTER → 2022-03-30 12:49 | Outpatient (BNVA) | payer MEDICARE, MEDICAID, SELFPAY | PROVIDERS: PCP Internal Medicine; Visit Provider Internal Medicine Gastroenterology | DX: R13.10 Dysphagia, unspecified (principal); R10.30 Lower abdominal pain, unspecified; K59.09 Other constipation; K21.9 Gastro-esophageal reflux disease without esophagitis; D50.0 Iron deficiency anemia secondary to blood loss (chronic); K31.819 Angiodysplasia of stomach and duodenum without bleeding; C64.9 Malignant neoplasm of unspecified kidney, except renal pelvis; Z86.010 Personal history of colon polyps | CPT/HCPCS: 99212 ==

== ENCOUNTER 2024-02-04 13:48 | Outpatient (REF) | payer OTHER, SELFPAY ==
--- NOTE | ~2024-02-04 | XR_ITS ---
EXAMINATION: XR BILATERAL SHOULDER SERIES CLINICAL INFORMATION: Bilateral shoulder pain, right greater than left. COMPARISON: X-rays of the left shoulder June 2013. TECHNIQUE: 4 views of the right and left shoulders. FINDINGS: RIGHT SHOULDER: There is advanced osteoarthritis with joint space narrowing, prominent subchondral cystic change, subchondral sclerosis and marginal osteophytes. Acromioclavicular Joint: Normal. Surrounding bone and soft tissues unremarkable. LEFT SHOULDER: There is advanced osteoarthritis with severe joint space narrowing, subchondral cystic change, subchondral sclerosis and marginal osteophytes. The joint is partially obscured by the left chest wall pacer device. Acromioclavicular Joint: Mild arthrosis. Surrounding bone and soft tissues are otherwise unremarkable. XR/XR shoulder RT min 2V IMPRESSION: RIGHT SHOULDER: Advanced osteoarthritis. LEFT SHOULDER: Advanced osteoarthritis. Slight progression compared with prior x-ray June 2013.
--- NOTE | ~2024-02-04 | XR_ITS ---
EXAMINATION: XR BILATERAL SHOULDER SERIES CLINICAL INFORMATION: Bilateral shoulder pain, right greater than left. COMPARISON: X-rays of the left shoulder June 2013. TECHNIQUE: 4 views of the right and left shoulders. FINDINGS: RIGHT SHOULDER: There is advanced osteoarthritis with joint space narrowing, prominent subchondral cystic change, subchondral sclerosis and marginal osteophytes. Acromioclavicular Joint: Normal. Surrounding bone and soft tissues unremarkable. LEFT SHOULDER: There is advanced osteoarthritis with severe joint space narrowing, subchondral cystic change, subchondral sclerosis and marginal osteophytes. The joint is partially obscured by the left chest wall pacer device. Acromioclavicular Joint: Mild arthrosis. Surrounding bone and soft tissues are otherwise unremarkable. XR/XR shoulder LT min 2V IMPRESSION: RIGHT SHOULDER: Advanced osteoarthritis. LEFT SHOULDER: Advanced osteoarthritis. Slight progression compared with prior x-ray June 2013.
== END 2024-02-04 13:49 | disposition home or self-care (01) ==
LOC: HO.XRAY 13:48
PROVIDERS: PCP Internal Medicine; Referring Provider Internal Medicine; Visit Provider Nurse Practitioner Family
DX: M25.512 Pain in left shoulder (principal); M25.551 Pain in right hip; G89.29 Other chronic pain
CPT/HCPCS: 73030; 99202

== ENCOUNTER 2024-02-04 13:48 | Outpatient (AMB) | payer OTHER, SELFPAY ==
--- NOTE | 2024-02-04 13:53 | A.OFFVIS_ITS ---
Vital Signs 02/04/24 13:58 Height 5 ft 8 in Weight 233 lb BMI 35.4 BP 140/62 H Blood Pressure Location Lt brachial Position Sitting Pulse 72 Pulse Source Pulse Oximeter Pulse Oximetry (%) 96 Oxygen Delivery Method Room Air Intake Visit Reasons: CHRONIC PAIN SYNDROME Intake Note: Pain today 05/15 Pharmacist Assistant Required: Yes Pharmacist Assistant Language: Handle Maker Name: Accompanied by: Spouse Allergies acetaminophen [From TYLENOL] Adverse Reaction (Unknown, Verified 02/04/24 13:57) CAN'T TAKE BECAUSE OF A HEART CONDITION PER PT ibuprofen [IBUPROFEN] Adverse Reaction (Unknown, Verified 02/04/24 13:57) CAN'T TAKE BECAUSE OF LIVER PROBLEMS PER PT. HPI HPI CHRONIC PAIN SYNDROME: Details: Patient is a pleasant 79 years old Icelandic speaking male with history of chronic pain syndrome affecting his shoulders, lower back and knees, continuous opioid therapy, moderate-severe ARABELLA, cardiomyopathy, and metastatic adenocarcinoma of prostate s/p chemotherapy and radiation with repeat CT scan next week (Oncology- Dr. Quan Brush), presents today for initial evaluation of bilateral shoulder and knee pain. Denies any recent trauma, injury or falls. Patient reports shou lder pain is most bothersome and attributes pain to advanced OA. Surgical option was discussed at [facility] per patient but has not reached a finalized decision. He was also seen by Rheumatology provider, Dr. Silva. Bilateral shoulder pain increases with any movement, worse with overhead reaching, pulling or lifting. Patient is not good candidate for NSAIDs. He is currently on CSC for oxycodone 15 mg Q4H prn through his PCP. He also tried extended release opioids such as MS Contin and Fentanyl patch in the past which was discontinued due to overt sedation. Patient was also recently started on gabapentin but is not tolerating this well due to nausea. Patient is allergic to NSAIDs and Tylenol. He reports being out of his opioid medication for 4 days and concerned for withdrawal symptoms, including mild irritability and GI upset symptoms. Patient reports receiving shoulder and knee injections at [facility] 6-12 months ago at [facility] with mild to moderate relief. Reports completing course of physical therapy 5 years ago. Currently he is unable to participate in physical therapy due to significant bilateral shoulder pain. He is interested to undergo intra- articular steroidal injections under fluoroscopy. Patient is hoping for injections to be scheduled this month as he is leaving for vacation to [place] in March. Location: Bilateral shoulders and knees Duration: Chronic pain for many years Characteristics of symptom or complaint: Aching, tingling, numbness, throbbing, dull, sore, heavy, stabbing, sharp Aggravating or associated factors: Movements, pulling, lifting, raising his arms, reaching backside pocket Relieving factors: Oxycodone, rest, activity modification, ice/heat therapy Treatment: Injections, PT PFSH Medical History (Updated 02/04/24 @ 22:38 by EZRA Rodriguez) ARABELLA (obstructive sleep apnea) Depressive disorder GERD (gastroesophageal reflux disease) Osteoarthritis, knee Anemia History of prostate cancer History of lung cancer Depression OA (osteoarthritis) of shoulder Surgical History History of esophagogastroduodenoscopy (EGD) Hx of colonoscopy History of surgery of head Hx of hernia repair Family History Father History of prostate cancer Brother History of prostate cancer History of throat cancer Mother No problems noted. Social History Household Members: Spouse Alcohol intake: current Alcohol intake frequency: does not drink Current occupational status: disabled Review of Systems Const All systems reviewed & are unremarkable except as noted in HPI and below Physical Exam Vital Signs: Last Vital Signs Pulse 72 02/04/24 13:58 BP 140/62 H 02/04/24 13:58 Pulse Ox 96 02/04/24 13:58 Oxygen Delivery Method Room Air 02/04/24 13:58 BMI result Body Mass Index 35.4 General: Appears afebrile. Alert and oriented. Mood and affect appropriate. Follows and participates in conversation appropriately. Respiratory effort is unlabored. No cough. No dyspnea. Able to transition from sit to stand unassisted. Ambulates with slow, antalgic gait, mild limping. Back/Spine/Pelvis Other: Extrem Other: Bilateral shoulders normal to inspection. No erythema or ecchymosis. Patient has difficulty with overhead reach or reaching her back pockets. Flexion and supination against resistance reproduces bilateral shoulder pain. Significant tenderness to palpation to the anterior and posterior aspects of the both shoulders. Unable to adequately assess empty can and drop arm due to patient pain. 4/5 RTC strength bilaterally. Pulses intact in the hands. Muscle tenderness to bilateral upper trapezius muscles. Neck range of motion is limited. No midline tenderness in the cervical, thoracic or lumbar spine. General: Yes capillary refill normal, Yes no clubbing, cyanosis or edema and Yes no calf tenderness Results Reviewed Results Reviewed: No imaging reports are available for review today. Assessment & Plan Assessment & Plan (1) OA (osteoarthritis) of shoulder: Code(s): M19.019 - Primary osteoarthritis, unspecified shoulder Category: Medical (2) Chronic pain of both shoulders: Code(s): M25.511 - Pain in right shoulder; M25.512 - Pain in left shoulder; G89.29 - Other chronic pain Category: Medical (3) Chronic pain of both knees: Code(s): M25.561 - Pain in right knee; M25.562 - Pain in left knee; G89.29 - Other chronic pain Category: Medical Plan Schedule Bilateral shoulder intra-articular steroid injections with local and fluoroscopy. Patient is aware he will be contacted to schedule this procedure. We also discussed diagnostic nerve blocks for both knees and shoulders for potential peripheral nerve stimulation and RFA procedures. Informational pamphlets provided to patient and family in [place]ic. Patient declined these procedures at this time as he is leaving to [place] in next month for vacation. Patient is encouraged to reach out to his PCP for opioid refill due to concerns for withdrawals. He is currently on CSC for oxycodone 15 mg Q4H prn through his PCP and has been out of medication for few days. [facility] reviewed and consistent with patient's history. All questions were answered and the patient is in agreement of plan. Follow-up after injections and sooner as needed. Anticoagulation: Patient on anticoagulation (Aspirin) and instructions given on when to pause with prescribing physician permission. Justification for interventional therapy: ? Patient with average pain > 6/10 ? Patient has exhausted conservative therapy The risks, consequences, alternatives, and benefits of various treatment options were discussed with the patient in great detail, including conservative management, injections and procedures. Patient is aware of hyperglycemic effects of steroids. Orders: Orders XR shoulder LT min 2V 02/04/24 G89.29 - Other chronic pain, M19.019 - Primary osteoarthritis, unspecified shoulder, M25.511 - Pain in right shoulder, M25.512 - Pain in left shoulder XR shoulder RT min 2V 02/04/24 G89.29 - Other chronic pain, M19.019 - Primary osteoarthritis, unspecified shoulder, M25.511 - Pain in right shoulder, M25.512 - Pain in left shoulder Coding Level of Care Code New Pt Level 4 (99568) Diagnoses OA (osteoarthritis) of shoulder M19.019 Chronic pain of both shoulders M25.511; M25.512; G89.29 Chronic pain of both knees M25.561; M25.562; G89.29
[2024-02-04 13:58] VITALS: BP 140/62; PULSE 72; O2SAT 96; BMI 35.4
== END 2024-02-04 14:54 | disposition home or self-care (01) ==
PROVIDERS: PCP Internal Medicine; Referring Provider Internal Medicine; Visit Provider Nurse Practitioner Family
DX: M19.019 Primary osteoarthritis, unspecified shoulder (principal); M25.511 Pain in right shoulder; M25.512 Pain in left shoulder; G89.29 Other chronic pain; M25.561 Pain in right knee; M25.562 Pain in left knee
CPT/HCPCS: 99204

== ENCOUNTER 2024-02-05 15:55 | Outpatient (REF) | payer OTHER, SELFPAY ==
[2024-02-05 18:30] LABS: Alanine Aminotransferase 20 U/L (0-40); Alkaline Phosphatase 63 U/L (39-117); Anion Gap 12 (12-20); Aspartate Amino Transferase 29 U/L (5-37); Bilirubin Total 0.4 mg/dL (0.0-1.0); Blood Urea Nitrogen 11 mg/dL (9-16); Calcium 9.4 mg/dL (8.4-10.2); Carbon Dioxide 28 mmol/L (22-29); Chloride 103 mmol/L (96-108); Estimated Glomerular Filt Rate > 60; Glucose Random 124 mg/dL (60-115); Sodium 139 mmol/L (135-145); Total Protein 6.6 g/dL (6.5-8.0)
== END 2024-02-05 15:56 | disposition home or self-care (01) ==
LOC: HO.HHCL 15:55
PROVIDERS: Visit Provider Internal Medicine
DX: I10 Essential (primary) hypertension (principal)
CPT/HCPCS: 36415; 80053

== ENCOUNTER 2024-03-12 09:36 | Outpatient (AMB) | payer OTHER, SELFPAY ==
--- NOTE | 2024-03-12 09:37 | MHC.OFFVIS ---
Vital Signs 03/12/24 09:39 Height 5 ft 8 in Weight 239 lb BMI 36.3 BP 80/43 L Blood Pressure Location Lt brachial Position Sitting Respiration 15 Pulse 103 H Pulse Source Pulse Oximeter Pulse Oximetry (%) 94 Oxygen Delivery Method Room Air Intake Visit Reasons: Quique intraarticular shoulder inj Allergies acetaminophen [From TYLENOL] Adverse Reaction (Unknown, Verified 03/12/24 09:42) CAN'T TAKE BECAUSE OF A HEART CONDITION PER PT ibuprofen [IBUPROFEN] Adverse Reaction (Unknown, Verified 03/12/24 09:42) CAN'T TAKE BECAUSE OF LIVER PROBLEMS PER PT. Medication List - Last Reconciled 03/12/24 by Nilsa Denton LPN ascorbic acid (vitamin C) 500 mg PO DAILY aspirin 81 mg PO DAILY dapagliflozin propanediol (Farxiga) 10 mg PO DAILY gabapentin 300 mg PO TID leuprolide (3 month) (Lupron Depot) 22.5 mg IM [id number] omeprazole 40 mg PO DAILY oxycodone mg PO sacubitril-valsartan 49-51 mg (Entresto) 1 tab PO BID sennosides (Pricilla-shelton) 8.6 mg PO BEDTIME PRN 90 days simvastatin 80 mg PO DAILY spironolactone 25 mg PO DAILY HPI HPI Quique intraarticular shoulder inj: Details: 79 years old male presents today for bilateral shoulder intra-articular steroid injections. He reports he has pain in the bilateral shoulders which worsens with movement of his shoulders. X-rays show advanced glenohumeral arthritis. Denies any recent cough, cold, infection, fever or other significant changes in medical history since last office visit. [facility] Medical History (Updated 02/04/24 @ 22:38 by EZRA Rodriguez) ARABELLA (obstructive sleep apnea) Depressive disorder GERD (gastroesophageal reflux disease) Osteoarthritis, knee Anemia History of prostate cancer History of lung cancer Depression OA (osteoarthritis) of shoulder Surgical History History of esophagogastroduodenoscopy (EGD) Hx of colonoscopy History of surgery of head Hx of hernia repair Family History Father History of prostate cancer Brother History of prostate cancer History of throat cancer Mother No problems noted. Social History Household Members: Spouse Alcohol intake: current Alcohol intake frequency: does not drink Current occupational status: disabled Physical Exam Vital Signs: Last Vital Signs Pulse 103 H 03/12/24 09:39 Resp 15 03/12/24 09:39 BP 80/43 L 03/12/24 09:39 Pulse Ox 94 03/12/24 09:39 Oxygen Delivery Method Room Air 03/12/24 09:39 BMI result Body Mass Index 36.3 General: Appears afebrile. Alert and oriented. Mood and affect appropriate. Follows and participates in conversation appropriately. Respiratory effort is unlabored. Able to transition from sit to stand unassisted. Ambulates with bilaterally normal heel strike and toe off. Office Procedures Joint Injection/Aspiration Joint Injection/Aspiration Primary Site: right shoulder Secondary Site: left shoulder Prep: site was prepped using sterile technique Injected: 40 mg of (on each side), Kenalog and with 8 mL of (normal saline in the joint) Approach Used: posterolateral (under US guidance) Procedure: The patient tolerated the procedure well Coding 51303 - Glenohumeral with ultrasound guidance Procedure code (CPT) selection complete Results Reviewed Results Reviewed: Date: 02/04/24. EXAMINATION: XR BILATERAL SHOULDER SERIES FINDINGS: RIGHT SHOULDER: There is advanced osteoarthritis with joint space narrowing, prominent subchondral cystic change, subchondral sclerosis and marginal osteophytes. Acromioclavicular Joint: Normal. Surrounding bone and soft tissues unremarkable. LEFT SHOULDER: There is advanced osteoarthritis with severe joint space narrowing, subchondral cystic change, subchondral sclerosis and marginal osteophytes. The joint is partially obscured by the left chest wall pacer device. Acromioclavicular Joint: Mild arthrosis. Surrounding bone and soft tissues are otherwise unremarkable. IMPRESSION: RIGHT SHOULDER: Advanced osteoarthritis. LEFT SHOULDER: Advanced osteoarthritis. Slight progression compared with prior x-ray June 2013. Assessment & Plan Assessment & Plan (1) Chronic pain of both shoulders: Code(s): M25.511 - Pain in right shoulder; M25.512 - Pain in left shoulder; G89.29 - Other chronic pain Category: Medical Plan Patient is status post bilateral shoulder intra-articular steroid injections. Patient tolerated procedure well and was discharged home in stable condition with discharge instructions. All questions were answered. Follow-up/repeat as needed. Scribed for Dr. William by [employer] biomedical electronics technician, on 03/12/2024. I, Dr. William, have personally reviewed and agree with the information entered by the scribe. Coding Level of Care Code Procedure Only Diagnoses Chronic pain of both shoulders M25.511; M25.512; G89.29 CPT Codes Coding - Joint 8: 07954 - Glenohumeral with ultrasound guidance ([id number])
[2024-03-12 09:39] VITALS: BP 80/43; PULSE 103; RESP 15; O2SAT 94; BMI 36.3
== END 2024-03-12 09:58 | disposition home or self-care (01) ==
PROVIDERS: PCP Internal Medicine; Visit Provider Internal Medicine
DX: M25.511 Pain in right shoulder (principal); M25.512 Pain in left shoulder; G89.29 Other chronic pain
CPT/HCPCS: 20611

== ENCOUNTER → 2024-03-12 09:36 | Outpatient (BNVA) | payer OTHER, SELFPAY | PROVIDERS: PCP Internal Medicine; Visit Provider Internal Medicine | DX: M25.511 Pain in right shoulder (principal); M25.512 Pain in left shoulder; G89.29 Other chronic pain | CPT/HCPCS: 20611 ==

== ENCOUNTER 2024-11-20 12:56 | Outpatient (AMB) | payer OTHER, SELFPAY ==
[2024-11-20 12:58] VITALS: BMI 36.3
--- NOTE | 2024-11-20 12:58 | A.OFFVIS_ITS ---
Vital Signs 11/20/24 12:58 Height 5 ft 8 in Weight 239 lb BMI 36.3 Intake Visit Reasons: New PT - Bilateral Shoulder Pain, L>R Intake Note: Merlin is a 79 year old right hand dominant male who presents today as a new patient with complaints of bilateral shoulder pain. He was referred by his Primary care due to complaints of chronic shoulder pain that is affecting his A DL. Pain worsens with movement . He is currently on a regimen of 15mg Oxycodone Q4 hours. Allergies acetaminophen [From TYLENOL] Adverse Reaction (Unknown, Verified 11/20/24 12:59) CAN'T TAKE BECAUSE OF A HEART CONDITION PER PT ibuprofen [IBUPROFEN] Adverse Reaction (Unknown, Verified 11/20/24 12:59) CAN'T TAKE BECAUSE OF LIVER PROBLEMS PER PT. HPI HPI New PT - Bilateral Shoulder Pain, L>R: Details: Merlin is a 79-year-old man with bilateral shoulder pain. He takes 15 mg of oxycodone every 3-4 hours. He has been doing this for 17-18 years . He states he has pain at night and pain with activity. He has had injections in his shoulders which have been intermittently helpful. He takes gabapentin and has a history of ischemic cardiomyopathy. [facility] Medical History (Updated 11/20/24 @ 13:33 by Mika Vila MD) ARABELLA (obstructive sleep apnea) Depressive disorder GERD (gastroesophageal reflux disease) Osteoarthritis, knee Anemia History of prostate cancer History of lung cancer Depression OA (osteoarthritis) of shoulder Surgical History History of esophagogastroduodenoscopy (EGD) Hx of colonoscopy History of surgery of head Hx of hernia repair Family History Father History of prostate cancer Brother History of prostate cancer History of throat cancer Mother No problems noted. Social History Household Members: Spouse Alcohol intake: current Alcohol intake frequency: does not drink Current occupational status: disabled Physical Exam Vital Signs: BMI result Body Mass Index 36.3 Extrem Other: Positive Soni and Neer bilaterally. External rotation 25 degrees at best, right Results Reviewed Results Reviewed: I personally reviewed relevant radiographs. Severe bilateral shoulder osteoarthritis Assessment & Plan Assessment & Plan (1) OA (osteoarthritis) of shoulder: Code(s): M19.019 - Primary osteoarthritis, unspecified shoulder Category: Medical Plan: This is a 79-year-old with bilateral osteoarthritis of the shoulders. He has got a severe opioid dependency and my recommendation would be to discontinue narcotics if he wanted to be a candidate for surgery. Recovery would be even if he were off antibiotics not certain he would be cleared for surgery. Given this I think surgery is not a good idea I discussed this with him. He agrees and we will continue with his current treatment plan which includes medication in interventions with pain. (2) Opioid dependence: Code(s): F11.20 - Opioid dependence, uncomplicated Category: Medical Plan: Coding Level of Care Code Est Pt Level 4 (12029) Diagnoses OA (osteoarthritis) of shoulder M19.019 Opioid dependence F11.20
--- OUTSIDE RECORDS SUMMARY | 2024-11-20 15:49 | XMS_ITS | Encounter Summary ---
Author Organization [employer] Address [address] [facility] 7t [place] [address] Care Team Providers Care Senior Software Engineering Manager Name Role Phone Thor Alvarado MD Primary Care Provide r Reason for Visit * Reason Onset Date Comments Med Refill 11/07/2023 Encounter Details Date Type Department Care Team (Late st Contact Info) Description 11/07/2023 Refill [facility] [address], [place] [phone] Thor Alvarado MD [address] [place], [place] [phone] Severe pain Social History Tobacco Use Types Packs/Day Years Used Date Smoking Tobacco: Former Cigarettes Q uit: 08/06/2006 Passive Smoke Exposure: Past Smokeless Tobacco: Never Depression Answer Date Recorded Patient Health Questionnaire-9 Score 6 12/21/2022 Housing Stability Answer Date Recorded What is your housing situation today? I have robbi corrales 05/21/[address] you li ve. Do you have problems with any of the following? None of the above 05/21/2023 Food Insecurity Answer Date Recorded Within the past 12 months, y ou worried that your food would run out before you got money to buy more: Often true 09/19/2023 Within the past 12 months,th e food you bought just didn't last and you didn't have enough money to get more: Often true Transportation Answer Date Recorded In the past 12 months, has l ack of transportation kept you from medical appts, meetings, work or from getting things needed for daily living? No 05/21/2023 Utilities Answer Date Recorded In the past 12 months, has t he electric, gas, oil or water [employer] threatened to shut off services in your home? No 05/21/2023 Depression Answer Date Recorded Patient Health Questionnaire-2 Score 4 12/21/2022 Sex and Gender Information Value Date Recorded Sex Assigned at Male 06/05/2022 10:17 AM EDT Legal Sex Male 10:17 AM EDT Gender Identity Male 06/05/2022 10:17 AM EDT Sexual Orientation Choose not to disclose 2021 10:17 AM EDT documented as of this encounter Miscellaneous Notes * Telephone Encounter - Tanya Henriquez - 11/07/2023 2:41 PM EDT TC from pt requesting medication refill. Medications needing refill : oxyCODONE (Roxicodone) 15 MG immediate release tablet Pt stated is out of med To be sent to: [id number] - [place], [place] - [address] [facility] documented in this encounter Plan of Treatment Upcoming Encounters Date Type Department Care Team (Late st Contact Info) Description 02/12/2025 2:00 PM EDT Office Visit [facility] [address] [place] [phone] Thor Alvarado MD [address] [place] [address] documented as of this encounter Visit Diagnoses Diagnosis Severe pain documented in this encounter Additional Health Concerns Assessment Noted Time PHQ-9 Depression Total Score: 6 12/22/19 23 1:08 PM EDT documented as of this encounter Care Teams Senior Software Engineering Manager Relationship Specialty Start Date End Date Thor Alvarado MD [address] [place] [address] PCP - General Internal Medicine 04/08/14 documented as of this encounter
--- OUTSIDE RECORDS SUMMARY | 2024-11-20 15:49 | XMS_ITS | Encounter Summary ---
Author Organization [employer] Address [address] [facility] 7t [place] [address] Care Team Providers Care Tip Tester Name Role Phone Thor Alvarado MD Primary Care Provide r Reason for Visit * Reason Onset Date Comments Med Refill 05/17/2023 Encounter Details Date Type Department Care Team ([facility] st Contact Info) Description 05/17/2023 Telephone [facility] MEDICINE [address] [place], [place] [phone] Thor Alvarado MD [address] [place], [place] [phone] Med Refill Social History Tobacco Use Types Packs/Day Years Used Date Smoking Tobacco: Former Cigarettes Q uit: 08/06/2006 Passive Smoke Exposure: Never Smokeless Tobacco: Never Depression Answer Date Recorded [...] before you got money to buy more: Never True 05/21/2023 Within the past 12 months,th e food you bought just didn't last and you didn't have enough money to get more: Never True Transportation Answer Date Recorded In the past 12 months, has l ack of transportation kept you from medical appts, meetings, work or from getting things needed for daily living? No 05/21/2023 Utilities Answer Date Recorded In the past 12 months, has t he electric, gas, oil or water [employer] threatened to shut off services in [...] encounter Miscellaneous Notes * Telephone Encounter - Rebecca Landa - 05/17/2023 10:09 AM EDT Tc from pt requesting med refill for medication oxyCODONE (Roxicodone) 15 MG immediate release tablet. documented in this encounter Plan of Treatment Upcoming Encounters Date Type Department Care Team (Late st Contact Info) Description 02/12/2025 2:00 PM EDT Office Visit [facility] MEDICINE [address] [place] [address] Thor Alvarado MD [address] [place] [address] documented as of this encounter Visit Diagnoses Not on filedocumented in this encounter Additional Health Concerns Assessment Noted Time PHQ-9 Depression Total Score: 6 12/22/19 23 1:08 PM EDT documented as of this encounter Care Teams Tip Tester Relationship Specialty Start Date End Date Thor Alvarado MD [address] [place] [address] PCP - General Internal Medicine 04/08/14 documented as of this encounter
--- OUTSIDE RECORDS SUMMARY | 2024-11-20 15:49 | XMS_ITS | Encounter Summary ---
Author Organization [facility] Address [address] [facility] 7t [place] [address] Care Team Providers Care Group Leader Wafer Polishing Name Role Phone Thor Alvarado MD Primary Care Provide r Reason for Visit * Reason Comments Med Refill Encounter Details Date Type Department Care Team (Late st Contact Info) Description 03/28/2023 Refill [facility] MEDICINE [address] [place] [phone] Thor Alvarado MD [address] [place] [phone] Social History Tobacco Use Types Packs/Day Years Used Date Smoking Tobacco: Former Cigarettes Q uit: 08/06/2006 Passive Smoke Exposure: Never Smokeless Tobacco: Never Depression Answer Date Recorded Patient Health Questionnaire-9 Score 6 12/21/2022 Depression Answer Date Recorded Patient Health Questionnaire-2 Score 4 12/21/2022 Sex and Gender Information Value Date Recorded Sex Assigned at Male 06/05/2022 10:17 AM EDT Legal Sex Male 10:17 AM EDT Gender Identity Male 06/05/2022 10:17 AM EDT Sexual Orientation Choose not to disclose 2021 10:17 AM EDT documented as of this encounter Plan of Treatment Upcoming Encounters Date Type Department Care Team (Late st Contact Info) Description 02/12/2025 2:00 PM EDT Office Visit [facility] MED[facility] [address] [place] [phone] Thor Alvarado MD [address] [place] [phone] documented as of this encounter Visit Diagnoses Not on filedocumented in this encounter Additional Health Concerns Assessment Noted Time PHQ-9 Depression Total Score: 6 12/22/19 23 1:08 PM EDT documented as of this encounter Care Teams Group Leader Wafer Polishing Relationship Specialty Start Date End Date Thor Alvarado MD [address] [place] [address] PCP - General Internal Medicine 04/08/14 documented as of this encounter
--- OUTSIDE RECORDS SUMMARY | 2024-11-20 15:49 | XMS_ITS | Encounter Summary ---
Author Organization [employer] Address [address] [facility] 7t [place] [address] Care Team Providers Care Stapler Coil Unit Name Role Phone Thor Alvarado MD Primary Care Provide r Reason for Visit * Reason Onset Date Comments Med Refill 05/23/2024 Encounter Details Date Type Department Care Team ([facility] st Contact Info) Description 05/23/2024 Telephone [facility] MEDICINE [address] [place], [place] [phone] Thor Alvarado MD [address] [place], [place] [phone] Med Refill Social History Tobacco Use Types [...] t he electric, gas, oil or water [employer] threatened to shut off services in your [...] encounter Miscellaneous Notes * Telephone Encounter - Bhavya Guerra - 05/23/2024 2:44 PM EDT TC from pt requesting medication refill. Medications needing refill : oxyCODONE (Roxicodone) 15 MG immediate release tablet To be sent to: [id number] - [place], [place] - [address] [facility] documented in this encounter Plan of Treatment Upcoming Encounters Date Type Department Care Team (Late st Contact Info) Description 02/12/2025 2:00 PM EDT Office Visit [facility] [address] [place], [place] [phone] Thor Alvarado MD [address] [place] [address] documented as of this encounter Visit Diagnoses Not on filedocumented in this encounter Additional Health Concerns Assessment Noted Time PHQ-9 Depression Total Score: 6 12/22/19 23 1:08 PM EDT documented as of this encounter Care Teams Stapler Coil Unit Relationship Specialty Start Date End Date Thor Alvarado MD [address] [place], [place] [phone] PCP - General Internal Medicine 04/08/14 documented as of this encounter
--- OUTSIDE RECORDS SUMMARY | 2024-11-20 15:49 | XMS_ITS | Encounter Summary ---
Author Organization [employer] Address [address] [facility] 7t [place] [address] Care Team Providers Care Beef Breaker Name Role Phone Thor Alvarado MD Primary Care Provide r Reason for Visit * Reason Onset Date Comments Med Refill 11/17/2024 Encounter Details Date Type Department Care Team ([facility] st Contact Info) Description 11/17/2024 Telephone [facility] MEDICINE [address] [place], [place] [phone] Thor Alvarado MD [address] [place], [place] [phone] Med Refill Social History Tobacco Use Types Packs/Day Years Used Date Smoking Tobacco: Former Cigarettes Q uit: 08/06/2006 Passive Smoke Exposure: Past Smokeless Tobacco: Never Depression Answer Date Recorded Patient Health Questionnaire-9 Score 0 07/15/2024 Patient Health Questionnaire-9 Score 0 07/15/2024 Last PHQ-9: Questionnaire Data Not on file 1 09/15/2023 Housing Stability Answer Date Recorded What is your housing situation today? I have robbi corrales 10/09/[address] you li ve. Do you have problems with any of the following? None of the above 10/09/2024 Food Insecurity Answer Date Recorded Within the past 12 months, y ou worried that your food would run out before you got money to buy more: Never True 10/09/2024 Within the past 12 months,th e food you bought just didn't last and you didn't have enough money to get more: Never True 01/2025 Transportation Answer Date Recorded In the past 12 months, has l ack of transportation kept you from medical appts, meetings, work or from getting things needed for daily living? No 10/09/2024 Utilities Answer Date Recorded In the past 12 months, has t he electric, gas, oil or water company threatened to shut off services in your home? No 10/09/2024 Depression Answer Date Recorded Patient Health Questionnaire-2 Score 0 07/15/2024 Internet Access Answer Date Recorded Internet Access Q1 Yes 07/02/2024 Internet Access Q2 Not on file 07/02/2024 Sex and Gender Information Value Date Recorded Sex Assigned at Male 06/05/2022 10:17 AM EDT Legal Sex Male 10:17 AM EDT Gender Identity Male 06/05/2022 10:17 AM EDT Sexual Orientation Choose not to disclose 2021 10:17 AM EDT documented as of this encounter Miscellaneous Notes * Telephone Encounter - Macho العلي - 11/17/2024 1:44 PM EDT TC from pt requesting medication refill. Medications needing refill : oxyCODONE (Roxicodone) 15 MG immediate release tablet To be sent to: [id number] [place], [place] - [address] [facility] documented in this encounter Plan of Treatment Upcoming Encounters Date Type Department Care Team (Late st Contact Info) Description 02/12/2025 2:00 PM EDT Office Visit [facility] MEDICINE [address] [place] [address] Thor Alvarado MD [address] [place] [address] documented as of this encounter Visit Diagnoses Not on filedocumented in this encounter Additional Health Concerns Assessment Noted Time PHQ-9 Depression Total Score: 0 07/15/20 24 2:51 PM EST documented as of this encounter Care Teams Beef Breaker Relationship Specialty Start Date End Date Thor Alvarado MD [address] [place] [address] PCP - General Internal Medicine 04/08/14 documented as of this encounter
--- OUTSIDE RECORDS SUMMARY | 2024-11-20 15:49 | XMS_ITS | Encounter Summary ---
Author Organization [employer] Address [address] [facility] 7t [place] [address] Care Team Providers Care Fig Bar Machine Operator Name Role Phone Thor Alvarado MD Primary Care Provide r Reason for Visit * Reason Comments Med Refill Encounter Details Date Type Department Care Team ([facility] st Contact Info) Description 11/16/2023 Refill [facility] [address] [place], [place] [phone] Thor Alvarado MD [address] [place], [place] [phone] Social History Tobacco Use Types Packs/Day Years [...] Description 02/12/2025 2:00 PM EDT Office Visit [facility] [address] [place] [address] Thor Alvarado MD [address] [place] [address] documented as of this encounter Visit Diagnoses Not on filedocumented in this encounter Additional Health Concerns Assessment Noted Time PHQ-9 Depression Total Score: 6 12/22/19 23 1:08 PM EDT documented as of this encounter Care Teams Fig Bar Machine Operator Relationship Specialty Start Date End Date Thor Alvarado MD [address] [place] [address] PCP - General Internal Medicine 04/08/14 documented as of this encounter
--- OUTSIDE RECORDS SUMMARY | 2024-11-20 15:49 | XMS_ITS | Encounter Summary ---
Author Organization [employer] Address [address] [facility] 7t [place] [address] Care Team Providers Care Upholstery Trimmer Name Role Phone Thor Alvarado MD Primary Care Provide r Reason for Visit * Reason Onset Date Comments Med Refill 06/23/2024 Encounter Details Date Type Department Care Team ([facility] st Contact Info) Description 06/23/2024 Telephone [facility] MEDICINE [address] [place], [place] [phone] Thor Alvarado MD [address] [place], [place] [phone] Med Refill Social History Tobacco Use Types [...] t he electric, gas, oil or water [employer] threatened to shut off services in your [...] * Telephone Encounter - Rebecca Landa - 06/23/2024 9:54 AM EST TC from pt requesting medication refill. Medications needing refill : oxyCODONE (Roxicodone) 15 MG immediate release tablet To be sent to: [id number] - [place], [place] - [address] [facility] documented in this encounter Plan of Treatment Upcoming Encounters Date Type Department Care Team (Late st Contact Info) Description 02/12/2025 2:00 PM EDT Office Visit [facility] MEDICINE [address] [place], [place] [phone] Thor Alvarado MD [address] [place] [address] documented as of this encounter Visit Diagnoses Not on filedocumented in this encounter Additional Health Concerns Assessment Noted Time PHQ-9 Depression Total Score: 6 12/22/19 23 1:08 PM EDT documented as of this encounter Care Teams Upholstery Trimmer Relationship Specialty Start Date End Date Thor Alvarado MD [address] [place], [place] [phone] PCP - General Internal Medicine 04/08/14 documented as of this encounter
--- OUTSIDE RECORDS SUMMARY | 2024-11-20 15:49 | XMS_ITS | Encounter Summary ---
Author Organization [employer] Address [address] [facility] 7t [place] [address] Care Team Providers Care Shrinking Machine Operator Name Role Phone Thor Alvarado MD Primary Care Provide r Reason for Visit * Reason Onset Date Comments Med Refill 08/15/2024 Encounter Details Date Type Department Care Team ([facility] st Contact Info) Description 08/15/2024 Telephone [facility] [address] [place] [address] Thor Alvarado MD [address] [place], [place] [phone] Med Refill Social History Tobacco Use Types [...] encounter Miscellaneous Notes * Telephone Encounter - Claudio Roblero - 08/15/2024 4:35 PM EST TC from pt requesting medication refill. Medications needing refill : oxyCODONE (Roxicodone) 15 MG immediate release tablet To be sent to: [id number] [place], [place] - [address] [facility] documented in this encounter Plan of Treatment Upcoming Encounters Date Type Department Care Team (Late st Contact Info) Description 02/12/2025 2:00 PM EDT Office Visit [facility] [address] [place] [address] Thor Alvarado MD [address] [place] [address] documented as of this encounter Visit Diagnoses Not on filedocumented in this encounter Additional Health Concerns Assessment Noted Time PHQ-9 Depression Total Score: 0 07/15/20 24 2:51 PM EST documented as of this encounter Care Teams Shrinking Machine Operator Relationship Specialty Start Date End Date Thor Alvarado MD [address] [place] [address] PCP - General Internal Medicine 04/08/14 documented as of this encounter
--- OUTSIDE RECORDS SUMMARY | 2024-11-20 15:49 | XMS_ITS | Clinical Summary ---
Author Organization [employer] Address [address] [place] [address] Care Team Providers Care Nurse Researcher Name Role Phone Thor Alvarado MD Primary Care Provide r Allergies No known active allergies Medications naloxone (Narcan) 4 mg/0.1 mL nasal spray Administer 0.1 mL into affected nostril(s). 022 Active omeprazole (PriLOSEC) [address] capsule TAKE 1 CAPSULE BY MOUTH EVERY DAY 90 capsule 1 024 Active albuterol 108 (90 Base) MCG/ACT inhalerIndication s:Cough in adult patient Inhale 2 puffs every 6 (six) hours if needed for wheezing. 18 g 11 025 2025 Active Spacer/Aero-Holdi ng Chambers (AeroChamber MV) inhalerIndication s:Cough in adult patient Use as instructed 1 each 2 025 Active gabapentin (Neurontin) 300 MG capsuleIndication s:Chronic pain syndrome TAKE 1 CAPSULE(300 MG) BY MOUTH THREE TIMES DAILY 90 capsule 3 025 Active simvastatin (Zocor) 80 MG tabletIndications :Mixed hyperlipidemia TAKE 1 TABLET BY MOUTH EVERY DAY 90 tablet 1 025 Active oxyCODONE (Roxicodone) 15 MG immediate release tabletIndications :Severe pain Take 1 tablet (15 mg) by mouth every 4 (four) hours if needed (pain) for up to 14 days. Do not start before November 21, 2024. 84 tablet 025 2024 Active oxyCODONE (Roxicodone) 15 MG immediate release tabletIndications :Severe pain Take 1 tablet (15 mg) by mouth every 4 (four) hours if needed (pain) for up to 28 days. 168 tablet 025 2024 Discontinued(R eorder (will not trigger notification to Pharmacy)) oxyCODONE (Roxicodone) 15 MG immediate release tabletIndications :Severe pain Take 1 tablet (15 mg) by mouth every 4 (four) hours if needed (pain) for up to 28 days. Do not start before October 24, 2024. 168 tablet 025 2024 Discontinued(R eorder (will not trigger notification to Pharmacy)) Active Problems Problem Noted Date Diagnosed Date Long-term current use of opiate analgesic 2024 HFrEF (heart failure with reduced ejection fract ion) 07/15/2024 Assessment & Plan (07/15/2024 3:04 PM EST): Under the care of [facility] cardiology, last seen 05/09/2024 They recommended to continue: Bisoprolol 10 mg po daily Dapaglifozin 10 mg po daily Entresto 49/51 mg BID F/u 6 months Severe obesity (BMI 35.0-39.9) with comorbidity 12/21/2022 Assessment & Plan (10/09/2024 2:27 PM EST): Patient has been counseled and educated about diet and exercise. Personal goal of weight loss discussedPatient has comorbidity of: HTN Dietary Recommendations: Fruits, vegetables, whole grains, protein foods, and fat-free or low-fat dairy products are healthy choices. Eat different types of protein foods in your diet. This can include seafood, lean meats, poultry, beans, peas, lentils, nuts, seeds, soy products, and eggs. Limit foods and beverages higher in added sugars, saturated fat, and sodium. Exercise Recommendations: At least 150 minutes of moderate-intensity physical activity per week, or an equivalent combination of moderate- and vigorous-intensity activity Assessment & Plan (09/27/2023 9:16 AM EST): Patient has been counseled and educated about diet and exercise. Personal goal of weight loss discussedPatient has comorbidity of: HTN CHF NYHA class I 09/14/2022 Disorder of implantable defibrillator 09/14/2022 Erosive esophagitis 09/14/2022 Class 2 obesity 09/14/2022 Assessment & Plan (12/21/2022 1:19 PM EDT): Patient has been counseled and educated about diet and exercise. Personal goal of weight loss discussedPatient has comorbidity of: HTN ARABELLA on CPAP 09/14/2022 Assessment & Plan (10/09/2024 2:25 PM EST): Pt has ARABELLA. Repeat sleep study 01/15/2017 showed severe ARABELLA Pt with a Hx. of cardiomyopathy s/p AICD placement. He has a Cpap machine, but last visit he told me it is not working properly Pt was referred to Sleep lab has appointment in 02/2025 Assessment & Plan (07/15/2024 3:04 PM EST): Pt has ARABELLA. Repeat sleep study 01/15/2017 showed severe ARABELLA Pt with a Hx. of cardiomyopathy s/p AICD placement. He has a Cpap machine, but he tells me it is not working properly Plan: refer to sleep lab Assessment & Plan (09/27/2023 8:45 AM EST): Pt has ARABELLA. Repeat sleep study 01/15/2017 showed severe ARABELLA Pt with a Hx. of cardiomyopathy s/p AICD placement. He has a Cpap machine, but he tells me it is not working properly Assessment & Plan (09/14/2022 1:06 PM EST): Pt has ARABELLA. Repeat sleep study 01/15/2017 showed severe ARABELLA Pt with a Hx. of cardiomyopathy s/p AICD placement. He has a Cpap machine Chronic pain syndrome 09/14/2022 Assessment & Plan (10/09/2024 2:28 PM EST): Pt with c/o worsening chronic pain, mainly affecting both of his shoulders, Pt describes the pain as constant and moderate to severe, sometimes incapacitating him to do his ADLs. He is on a narcotic regimen of Oxycodone 15 mg po q 4 hrs Pt is not a good candidate for NSAIDS, and tylenol is insuficcient. Previous visit I had a detailed conversation with patient and his , we went over the risks of increasing the frequency at current dose since this would bring his total dose of Oxycodone to a much higher Miliequivalence of Morphine. Pt has moderate to severe ARABELLA, as well as Cardiomyopathy and in the past he has experienced overt sedation with long acting narcotics such as Oxycontin and Duragesic Patches. we discussed risks such as but not limited to, respiratory depression, respiratory failure and overt sedation that could result in an accident and even . We discussed the importance of having Narcan available, pt's states she knows how to use it. We have also tried adjunctive measures such as Acupuncture as well. On Gabapentin 300 mg po TID and Oxycodone. Seen at [facility], received steroid injections both shoulder last seen 03/2024 Follow up with me in 3 months Assessment & Plan (07/15/2024 2:49 PM EST): Pt with c/o worsening chronic pain, mainly affecting both of his shoulders, Pt describes the pain as constant and moderate to severe, sometimes incapacitating him to do his ADLs. He is on a narcotic regimen of Oxycodone 15 mg po q 4 hrs Pt is not a good candidate for NSAIDS, and tylenol is insuficcient. Previous visit I had a detailed conversation with patient and his , we went over the risks of increasing the frequency at current dose since this would bring his total dose of Oxycodone to a much higher Miliequivalence of Morphine. Pt has moderate to severe ARABELLA, as well as Cardiomyopathy and in the past he has experienced overt sedation with long acting narcotics such as Oxycontin and Duragesic Patches. we discussed risks such as but not limited to, respiratory depression, respiratory failure and overt sedation that could result in an accident and even . We discussed the importance of having Narcan available, pt's states she knows how to use it. We have also tried adjunctive measures such as Acupuncture as well. On Gabapentin 300 mg po TID and Oxycodone. Seen at [facility], received steroid injections both shoulder last seen 03/2024 Follow up with me in 3 months Assessment & Plan (01/22/2024 2:58 PM EDT): Pt with c/o worsening chronic pain, mainly affecting both of his shoulders, Pt describes the pain as constant and moderate to severe, sometimes incapacitating him to do his ADLs. He is on a narcotic regimen of Oxycodone 15 mg po q 4 hrs Pt is not a good candidate for NSAIDS, and tylenol is insuficcient. Previous visit I had a detailed conversation with patient and his , we went over the risks of increasing the frequency at current dose since this would bring his total dose of Oxycodone to a much higher Miliequivalence of Morphine. Pt has moderate to severe ARABELLA, as well as Cardiomyopathy and in the past he has experienced overt sedation with long acting narcotics such as Oxycontin and Duragesic Patches. we discussed risks such as but not limited to, respiratory depression, respiratory failure and overt sedation that could result in an accident and even . We discussed the importance of having Narcan available, pt's states she knows how to use it. We have also tried adjunctive measures such as Acupuncture as well. Plan: Will start Gabapentin 300 mg po TID. Will refer to [facility] Follow up with me in 3 months Assessment & Plan (04/24/2023 12:52 PM EDT): Pt with chronic pain, mainly affecting both of his shoulders, left > right. Pt describes the pain as constant and moderate to severe, sometimes incapacitating him to do his ADLs. He is on a narcotic regimen of Oxycodone 15 mg po q 4 hrs Pt is not a good candidate for NSAIDS, and tylenol is insuficcient. Previous visit I had a detailed conversation with patient and his , we went over the risks of increasing the frequency at current dose since this would bring his total dose of Oxycodone to a much higher Miliequivalence of Morphine. Pt has moderate to severe ARABELLA, as well as Cardiomyopathy and in the past he has experienced overt sedation with long acting narcotics such as Oxycontin and Duragesic Patches. we discussed risks such as but not limited to, respiratory depression, respiratory failure and overt sedation that could result in an accident and even . We discussed the importance of having Narcan available, pt's states she knows how to use it. We also discussed adjunctive measures such as Acupuncture as well. Assessment & Plan (09/14/2022 12:23 PM EST): Pt with chronic pain, mainly affecting both of his shoulders, left > right. Pt describes the pain as constant and moderate to severe, sometimes incapacitating him to do his ADLs. He is on a narcotic regimen of Oxycodone 15 mg po q 4 hrs Pt is not a good candidate for NSAIDS, and tylenol is insuficcient. Previous visit I had a detailed conversation with patient and his , we went over the risks of increasing the frequency at current dose since this would bring his total dose of Oxycodone to a much higher Miliequivalence of Morphine. Pt has moderate to severe ARABELLA, as well as Cardiomyopathy and in the past he has experienced overt sedation with long acting narcotics such as Oxycontin and Duragesic Patches. we discussed risks such as but not limited to, respiratory depression, respiratory failure and overt sedation that could result in an accident and even . We discussed the importance of having Narcan available, pt's states she knows how to use it. We also discussed adjunctive measures such as Acupuncture as well. 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 He recommended conservative measures Metastasis from malignant tumor of prostate 01/2015 Assessment & Plan (10/09/2024 2:27 PM EST): Previous CT showed an enlarging adrenal nopdule suspicious for metastasic disease. Patient underwent a Biopsy. Pathology report showed: immunohostochemical studies supportive of metastasic prostatic adenocarcinoma. he will continue to follow with Dr. 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 Pain worsens with movement. Difficulty with overhead activity. Right-handed. No injury. Seen in the past by a inspector filters, Dr. Silva, and orthopedist specialist at [facility]. Pt is not a good candidate for NSAIDS Of note we tried in the past MS Contin 15 mg po BID but pt did not tolerate so I switched him to Fentanyl 12 mcg q 72 hrs and once again did not tolerate due to oversedation. His current regimen pain regimen is Oxycodone 15 mg po q 4 hrs for breakthrough pain and Acetaminophen 325 mg po q 6 hrs Pt has a signed a Narcotic contract with us. Pt would like to see an orthopaedic specialist in [place] Assessment & Plan (01/22/2024 2:56 PM EDT): Patient here for a follow up He has chronic bilateral shoulder pain, described as intensity 8/10. Pain worsens with movement. Difficulty with overhead activity. Right-handed. No injury. Seen in the past by a inspector filters, Dr. Silva, and orthopedist specialist at [facility]. Pt is not a good candidate for NSAIDS Of note we tried in the past MS Contin 15 mg po BID but pt did not tolerate so I switched him to Fentanyl 12 mcg q 72 hrs and once again did not tolerate due to oversedation. His current regimen pain regimen is Oxycodone 15 mg po q 4 hrs for breakthrough pain and Acetaminophen 325 mg po q 6 hrs Pt has a signed a Narcotic contract with us. He was seen by [facility] 10/31/2023 Assessment & Plan (09/27/2023 9:16 AM EST): Patient here for a follow up He has chronic bilateral shoulder pain, described as intensity 8/10. Pain worsens with movement. Difficulty with overhead activity. Right-handed. No injury. Seen in the past by a inspector filters, Dr. Silva, and orthopedist specialist at [facility]. Pt is not a good candidate for NSAIDS Of note we tried in the past MS Contin 15 mg po BID but pt did not tolerate so I switched him to Fentanyl 12 mcg q 72 hrs and once again did not tolerate due to oversedation. His current regimen pain regimen is Oxycodone 15 mg po q 4 hrs for breakthrough pain and Acetaminophen 325 mg po q 6 hrs Pt has a signed a Narcotic contract with us. [facility]. Assessment & Plan (04/24/2023 12:54 PM EDT): Patient here for a follow up He has chronic bilateral shoulder pain, described as intensity 8/10. Pain worsens with movement. Difficulty with overhead activity. Right-handed. No injury. Seen in the past by a inspector filters, Dr. Silva, and orthopedist specialist at [facility]. Pt is not a good candidate for NSAIDS Of note we tried in the past MS Contin 15 mg po BID but pt did not tolerate so I switched him to Fentanyl 12 mcg q 72 hrs and once again did not tolerate due to oversedation. His current regimen pain regimen is Oxycodone 15 mg po q 4 hrs for breakthrough pain and Acetaminophen 325 mg po q 6 hrs Pt has a signed a Narcotic contract with us. He would like to be referred back to [facility] for a steroid injection. He has had good results with these in the past. Assessment & Plan (09/14/2022 12:24 PM EST): Patient withchronic bilateral shoulder pain intensity 8/10 Patient has a Hx of persistent severe bilateral shoulder pain L>R Pain worsens with movement. Difficulty with overhead activity. Right-handed. No injury. Seen in the past by a inspector filters, Dr. Silva, and orthopedist, [facility], in the past. Pt is not a good candidate for NSAIDS Of note we tried in the past MS Contin 15 mg po BID but pt did not tolerate so I switched him to Fentanyl 12 mcg q 72 hrs and once again did not tolerate due to oversedation. His current regimen pain regimen is Oxycodone 15 mg po q 4 hrs for breakthrough pain and Acetaminophen 325 mg po q 6 hrs Pt has a signed a Narcotic contract with us. Last visit he was referred back to [facility], pt received a steroid injection back then that lasted in relief for about 3 months, He received another injection with better results Hyperlipidemia 02/02/2015 Assessment & Plan (12/21/2022 12:40 PM EDT): Patient with elevated lipids. Most recent lipid profile from: 09/15/2022 shows a total cholesterol of: 110 triglycerides of: 81 HDL of: 39 and LDL of: 55 Currently on a regimen of: simvastatin 80 mg qhs . For now will continue with current regimen. advised to try to adhere to a low cholesterol diet, counseled and educated about diet and exercise, Patient encouraged to come up with a personal goal for weight loss. Assessment & Plan (09/14/2022 1:10 PM EST): Patient with elevated lipids. Most recent lipid profile from: 03/17/2021 shows a total cholesterol of: 109 triglycerides of: 66 HDL of: 41 and LDL of: 53 Currently on a regimen of: simvastatin 80 mg qhs . For now will continue with current regimen. Repeat Lipid profile advised to try to adhere to a low cholesterol diet, counseled and educated about diet and exercise, Patient encouraged to come up with a personal goal for weight loss. 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 Pt is under the care of Dr. bruce Brush Pt finished Chemotherapy with Docetaxel, received Lupron 22.5 mg every 3 months , and Prednisone Abiraterone was discontinued CT showed an enlarging adrenal nopdule suspicious for metastasic disease. Patient underwent a Biopsy. Pathology report showed: immunohostochemical studies supportive of metastasic prostatic adenocarcinoma. he will continue to follow with Dr. 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 Pt is under the care of Dr. bruce Brush Pt finished Chemotherapy with Docetaxel, received Lupron 22.5 mg every 3 months , and Prednisone Abiraterone was discontinued CT showed an enlarging adrenal nopdule suspicious for metastasic disease. Patient underwent a Biopsy. Pathology report showed: immunohostochemical studies supportive of metastasic prostatic adenocarcinoma. he will continue to follow with Dr. 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 Pt is under the care of Dr. bruce Brush Pt finished Chemotherapy with Docetaxel, received Lupron 22.5 mg every 3 months , and Prednisone Abiraterone was discontinued CT showed an enlarging adrenal nopdule suspicious for metastasic disease. Patient underwent a Biopsy. Pathology report showed: immunohostochemical studies supportive of metastasic prostatic adenocarcinoma. he will continue to follow with Dr. 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 Pt is under the care of Dr. bruce Brush Pt finished Chemotherapy with Docetaxel, received Lupron 22.5 mg every 3 months , and Prednisone Abiraterone was discontinued CT showed an enlarging adrenal nopdule suspicious for metastasic disease. Patient underwent a Biopsy. Pathology report showed: immunohostochemical studies supportive of metastasic prostatic adenocarcinoma. he will continue to follow with Dr. 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 Pt is under the care of Dr. bruce Brush Pt finished Chemotherapy with Docetaxel, received Lupron 22.5 mg every 3 months , and Prednisone Abiraterone was discontinued CT showed an enlarging adrenal nopdule suspicious for metastasic disease. Patient underwent a Biopsy. Pathology report showed: immunohostochemical studies supportive of metastasic prostatic adenocarcinoma. he will continue to follow with Dr. 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 Pt is under the care of Dr. bruce Brush Pt finished Chemotherapy with Docetaxel, received Lupron 22.5 mg every 3 months , and Prednisone Abiraterone was discontinued Most recent CT showed an enlarging adrenal nopdule suspicious for metastasic disease. Patient underwent a Biopsy. Pathology report showed: immunohostochemical studies supportive of metastasic prostatic adenocarcinoma. he will continue to follow with Dr. 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 Pt is under the care of Dr. bruce Brush Pt finished Chemotherapy with Docetaxel, received Lupron 22.5 mg every 3 months , and Prednisone Abiraterone was discontinued Most recent CT showed an enlarging adrenal nopdule suspicious for metastasic disease. Patient underwent a Biopsy. Pathology report showed: immunohostochemical studies supportive of metastasic prostatic adenocarcinoma. he will continue to follow with Dr. Brush, last seen 06/2022 He completed 8 cycles of Cabazitaxel chemotherapy and is scheduled to follow up with Oncology this month Hypertension 10/20/2013 Assessment & Plan (10/09/2024 2:25 PM EST): Pt is here for a follow up BP today controlled He is on a regimen of: Entresto 49.51 mg BID, Spironolactone 25 mg po daily, Carvedilol 6.25 mg po BID and Isosorbide 30 mg po daily. Most recent electrolytes, Bun and Creatinine done on: Lab Results Component Value Date NA 139 02/05/2024 NA 139 09/15/2022 K 4.0 02/05/2024 K 4.1 09/15/2022 CL 103 02/05/2024 CL 104 09/15/2022 BUN 11 02/05/2024 BUN 13 09/15/2022 CREATININE 1.00 02/05/2024 CREATININE 0.88 09/15/2022 were within normal limits.Repeat BMP patient advised to adhere to a low sodium diet, encouraged about medication compliance, counseled about weight loss. Assessment & Plan (07/15/2024 2:50 PM EST): Pt is here for a follow up BP today controlled He is on a regimen of: Entresto 49.51 mg BID, Spironolactone 25 mg po daily, Carvedilol 6.25 mg po BID and Isosorbide 30 mg po daily. Most recent electrolytes, Bun and Creatinine done on: Lab Results Component Value Date NA 139 02/05/2024 NA 139 09/15/2022 K 4.0 02/05/2024 K 4.1 09/15/2022 CL 103 02/05/2024 CL 104 09/15/2022 BUN 11 02/05/2024 BUN 13 09/15/2022 CREATININE 1.00 02/05/2024 CREATININE 0.88 09/15/2022 were within normal limits. patient advised to adhere to a low sodium diet, encouraged about medication compliance, counseled about weight loss. Assessment & Plan (01/22/2024 2:49 PM EDT): Pt is here for a follow up BP today controlled He is on a regimen of: Entresto 49.51 mg BID, Spironolactone 25 mg po daily, Carvedilol 6.25 mg po BID and Isosorbide 30 mg po daily. Most recent electrolytes, Bun and Creatinine done on: 09/15/2022 were within normal limits. Today will order a repeat BMP patient advised to adhere to a low sodium diet, encouraged about medication compliance, counseled about weight loss. Assessment & Plan (09/27/2023 8:46 AM EST): Pt is here for a follow up BP today controlled He is on a regimen of: Entresto 49.51 mg BID, Spironolactone 25 mg po daily, Carvedilol 6.25 mg po BID and Isosorbide 30 mg po daily. Most recent electrolytes, Bun and Creatinine done on: 09/15/2022 were within normal limits. Today will order a repeat BMP patient advised to adhere to a low sodium diet, encouraged about medication compliance, counseled about weight loss. Assessment & Plan (12/21/2022 12:40 PM EDT): Pt is here for a follow up BP today controlled He is on a regimen of: Entresto 49.51 mg BID, Spironolactone 25 mg po daily, Carvedilol 6.25 mg po BID and Isosorbide 30 mg po daily. Most recent electrolytes, Bun and Creatinine done on: 09/15/2022 were within normal limits. patient advised to adhere to a low sodium diet, encouraged about medication compliance, counseled about weight loss. Assessment & Plan (09/14/2022 1:04 PM EST): Televisit Pt reports BP at home controlled He is on a regimen of: Entresto 49.51 mg BID, Spironolactone 25 mg po daily, Carvedilol 6.25 mg po BID and Isosorbide 30 mg po daily. Most recent electrolytes, Bun and Creatinine done on: 10/21/2020 were within normal limits. Will repeat patient advised to adhere to a low sodium diet, encouraged about medication compliance, counseled about weight loss. Lumbago 02/15/2012 Anemia 01/17/2012 Assessment & Plan (09/14/2022 1:11 PM EST): Pt admitted to [facility] 11/24/2019 after Oncologist performed routine labs and found him to be profoundly anemic. Pt received 1 u prbc and underwent EGD and colonoscopy. EGD showed mild gastritis and Colonoscopy showed some polyps that were resected. 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 Toure, last seen 01/27/2021 Of note pt has a Hx of anemia in the past Pt with a Hx of chronic persistent anemia, evaluated by a Field Crop Harvest Contractor at [facility] on 10/04/2011. They apparently repeated his stool cards that tested positive for blood. Dr Burns's impression was that pt had iron deficiency anemia likely seeming from a GI bleed. he recommended no further hematologic work up and pt to have an EGD and Colonoscopy. This was done by Dr Delgado on 03/19/2012 and was basically unrevealing aside from chronic gastritis. Dr Delgado recommended no further GI work up and repeat colonoscopy in 5 years given his family Hx of colon cancer. A Repeat CBC on 01/08/2014 showed a Hgb of 9.3. Iron studies, B12 and Folate. on 06/2014 were wnl. Pt was seen by Dr Dr. Harley, last appt 01/15/14 Dx history: 12/09/13 EGD showed erosive esophagitis and angiectasia Current medications: omeprazole [address] enterography 01/27/2014 was negative without explanation for his anemia. There was a thickened distal esophagus, for which EGD correlation was recommended. He is contraindicated for capsule endoscopy due to AICD. Pt was seen by Dr Sly HORTON back then and underwent an EGD that showed evidence of diffuse esophageal spasm Dilated cardiomyopathy 01/17/2012 Assessment & Plan (07/15/2024 2:52 PM EST): Pt here for a f/u He has a Cardiomyopathy s/p AICD placement. Pt tells me he had a recent interrogation of his AICD Previous MUGA demonstrated improved LV function to 37%. Cardiac cath 05/29/2013 showed NL coronaries. He remains compensated NYHA Class II He is on Asa 81mg po daily, Simvastatin 80mg po qhs, Entresto 49.51, Carvedilol 6.25 mg po BID. and Spironolactone 25 mg po daily Last MIBI scan 11/14/2012 showed some conflicting results Assessment & Plan (09/14/2022 1:07 PM EST): Pt here for a f/u He has a Cardiomyopathy s/p AICD placement. Pt tells me he had a recent interrogation of his AICD Previous MUGA demonstrated improved LV function to 37%. Cardiac cath 05/29/2013 showed NL coronaries. He remains compensated NYHA Class II He is on Asa 81mg po daily, Simvastatin 80mg po qhs, Entresto 49.51, Carvedilol 6.25 mg po BID. and Spironolactone 25 mg po daily Last MIBI scan 11/14/2012 showed some conflicting results Microscopic hematuria 01/17/2012 Depressive disorder 08/06/1958 Assessment & Plan (09/14/2022 1:09 PM EST): Currently taking amitriptyline 100 mg qhs. Gastroesophageal reflux disease 08/06/1959 Erectile dysfunction 08/06/1959 Assessment & Plan (10/09/2024 2:36 PM EST): Pt interested in a penile prosthesis Plan: Referral to Urology [place]: positive 08/06/1959 Osteoarthritis of knee 08/06/1959 Resolved Problems Problem Noted Date Diagnosed Date Resolved Date Supraventricular tachycardia 10/09/2024 10/09/2024 Encounters Date Type Department Care Team Description 11/17/2024 Refill [facility] [address] [place] [address] Lacey Cloud RN Severe pain 11/17/2024 Telephone [facility] [address] [facility] [place] [address] Thor Alvarado MD Med Refill 10/30/2024 Telephone [facility] [address] [facility] [place] [address] Thor Alvarado MD DME from Home care delivered 10/29/2024 Telephone [facility] [address] [place] [address] Lacey Cloud, RN pantograph machine operator 10/23/2024 Refill [facility] [address] [facility] [place] [address] Thor Alvarado MD Severe pain 10/13/2024 Refill [facility] [address] [facility] [place] [address] Thor Alvarado MD Mixed hyperlipidemia 10/11/2024 Refill [facility] [address] [facility] [place] [address] Thor Alvarado MD Chronic pain syndrome 10/09/2024 2:15 PM EST Office Visit [facility] [address] [facility] [place] [address] Thor Alvarado MD Primary hypertension (Primary Dx); ARABELLA on CPAP; 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); Supraventricular tachycardia (CMS/HCC); Metastasis from malignant tumor of prostate (CMS/HCC); Severe obesity (BMI 35.0-39.9) with comorbidity (CMS/HCC); Chronic pain syndrome; Dietary counseling; Exercise counseling; Erectile dysfunction due to diseases classified elsewhere; Arthrosis of right shoulder region 10/09/2024 Travel 09/30/2024 Patient Outreach [facility] [address] [facility] [place] [address] Thor Alvarado MD Pre-visit Planning (Pre-visit planning - LV ) 09/29/2024 Telephone [facility] [address] [place] [address] Lacey Cloud RN 09/29/2024 Refill [facility] [address] [place] [address] Lacey Cloud RN Severe pain 09/26/2024 Refill [facility] [address] [facility] [address] Thor Alvarado MD Severe pain 09/26/2024 Telephone [facility] [address] [facility] [place] [address] Thor Alvarado MD 09/26/2024 Telephone [facility] [address] [place] [address] Thor Alvarado MD Referral 09/25/2024 Telephone [facility] [address] [place] [address] Thor Alvarado MD Chart Prep 09/19/2024 10:00 AM EST Clinical Support [facility] [address] [facility] [place] [address] Lacey Cloud RN Chronic pain syndrome 09/19/2024 Refill [facility] [address] [place] [address] Lacey Cloud RN Severe pain 09/19/2024 Travel 09/18/2024 Travel 09/18/2024 Telephone [facility] [address] [place] [address] Lacey Cloud RN 09/17/2024 Telephone [facility] [address] [place] [address] Lacey Cloud, RN pantograph machine operator 09/17/2024 Telephone [facility] [address] [place] [address] Thor Alvarado MD Med Refill 09/16/2024 Refill [facility] [address] [place] [address] Thor Alvarado MD Severe pain 08/29/2024 3:40 PM EST Office Visit [facility] [address] [place] [address] Arleen Holland, EZRA Cough in adult patient 08/29/[address] [address] Thor Alvarado MD Durable Medical Equipment from Last 3 Months Immunizations Name Administration Dates Next Due Influenza High-dose Quadriva lent Preservative Free 05/24/2022,05/11/2020 Influenza Whole 05/14/2012,06/15/2009 Influenza injectable quadriv alent IIV4 with preservative 05/04/2016,05/11/2015 Influenza, IIV3, injectable 08/27/2014, 1 Influenza, Split (incl. tin fied surface antigen) 04/14/2013 Moderna Covid-19 Vaccine 12+ 10/21/2020,09/23/19 21 Pfizer Covid-19 Vaccine 12+ 08/08/2021 Pfizer Covid-19 Vaccine 12+ Bivalent 10/09/2022 Pneumococcal Conjugate PCV 13 12/28/2021, 016 Pneumococcal Polysaccharide PPSV23 05/24,08/27/2014,10/20/2013,07/19 TD (adult), 2 Lf tetanus tox oid, preservative free, adsorbed 03/25/2004 Tdap 10/20/2013 Zoster, live 05/11/2015 Social History Tobacco Use Types Packs/Day Years Used Date Smoking Tobacco: Former Cigarettes Q uit: 08/06/2006 Passive Smoke Exposure: Past Smokeless Tobacco: Never Tobacco Cessation:Counseling Given: Not Answered Depression Answer Date Recorded Patient Health Questionnaire-9 [...] not to disclose 2021 10:17 AM EDT Last Filed Vital Signs Vital Sign Reading Time Taken Comments Blood Pressure 126/74 10/09/2024 2:10 PM EST Pulse 99 10/09/2024 2:10 PM EST Temperature 36.3 ??C (97.3 ??F) 10/09/2024 2:10 PM ES T Respiratory Rate 20 10/09/2024 2:10 PM EST Oxygen Saturation 95% 10/09/2024 2:10 PM EST Inhaled Oxygen Concentration - - Weight 113 kg (250 lb) 10/09/2024 2:10 PM EST Height 172.7 cm (5' 8 ) 10/09/2024 2:10 PM EST Body Mass Index 38.01 10/09/2024 2:10 PM EST Plan of Treatment Upcoming Encounters Date Type Department Care Team (Late st Contact Info) Description 02/12/2025 2:00 PM EDT Office Visit [facility] [address] [place] [address] Thor Alvarado MD [address] [place] [address] Health Maintenance Due Date Last Done Comments Derm Melanoma Skin Check 1945 Hepatitis C Screening 01/10[birth year]1964 Zoster Vaccines (2 of 3) 07/06/2015 05/11/2015 RSV Patients and Patients Aged 60 years or older (1 - 1-dose 75+ series) 2021 DTaP/Tdap/Td Vaccines (2 - Td or Tdap) 10/21/2023 10/20/2013, 03/25/2004 COVID-19 Vaccine ( season) 2024 10/09/2022, 08/08/2021, 10/21/2020, Additional history exists Influenza Vaccine (#1) 2024 , 05/11/2020, 05/04/2016, Additional history exists Alcohol/Substance Use Screening 07/15/2025 07/15/2024 Depression Screening 07/15/2025 07/15/2024, 07/15/20 24 SDOH Screening 10/09/2025 10/09/2024 Tobacco Screening 10/09/2025 10/09/2024 Lipid Panel 09/15/2027 09/15/2022, 03/17/2021 Pneumococcal Vaccine: 50+ Years Completed 05/24/2022, 12/28/2021, 08/10/2015, Additional history exists HIB Vaccines Aged Out No longer eligi ble based on patient's age to complete this topic HPV Vaccines Aged Out No longer eligi ble based on patient's age to complete this topic Hepatitis A Vaccines Aged Out No long er eligible based on patient's age to complete this topic Hepatitis B Vaccines Aged Out No long er eligible based on patient's age to complete this topic IPV Vaccines Aged Out No longer eligi ble based on patient's age to complete this topic Meningococcal Vaccine Aged Out No silvana kali eligible based on patient's age to complete this topic RSV under 20 months Aged Out No longe r eligible based on patient's age to complete this topic Rotavirus Vaccines Aged Out No longer eligible based on patient's age to complete this topic Procedures Procedure Name Priority Date/Time Associated Diagnosis Comments POCT KWAME-14 URINE DRUG SCREEN Routine 09/19/2024 10:14 AM EST Chronic pain syndrome POCT RAPID STREP A Routine 08/29/2024 3: 58 PM EST Cough in adult patient POCT RAPID COVID ANTIGEN Routine 08/29/2024 3:58 PM EST Cough in adult patient POCT INFLUENZA B (ID NOW RAPID MOLECULAR) Routine 08/29/2024 3:58 PM EST Cough in adult patient POCT INFLUENZA A (ID NOW RAPID MOLECULAR) Routine 08/29/2024 3:58 PM EST Cough in adult patient LIPID PANEL WITH REFLEX TO DIRECT LDL Routine 09/15/2022 11:18 AM EST Metastatic adenocarcinoma to prostate (CMS/HCC) from Last 3 Months or Most Recently Relevant to Health Maintenance Results * POCT KWAME-14 Urine Drug Screen (09/19/2024 10:14 AM EST) [facility]CA, Urine Positive Oxycodone Screen, Urine Positive Urine Urine specimen obtained by clean catch procedure / Unknown 09/19/2024 10:14 AM EST Narrative Lacey Cloud RN - 09/19/2024 10:14 AM EST .UTOX cup Lot#[id number] Exp. 03/25/26 Internal Pass Control us Thor Platt MD POINT OF CARE TEST EN TER/EDIT ORDERABLES Final Result * Influenza B (ID NOW Rapid Molecular) (08/29/2024 3:58 PM EST) [facility] Influenza B Negative Negative, Indeterminate [facility] Swab 08/29/2024 3:58 PM EST Result [facility] POINT OF CARE TEST ENTER/EDIT ORDERABLES Final Result Performing Organization Address [facility]/ZIP Co de Phone Number [facility] [address] [place] [phone] * Influenza A (ID NOW Rapid Molecular) (08/29/2024 3:58 PM EST) [facility] Influenza A Negative Negative, Indeterminate [facility] Swab 08/29/2024 3:58 PM EST Result [facility] POINT OF CARE TEST ENTER/EDIT ORDERABLES Final Result Performing Organization Address City/[facility]/ZIP Co de Phone Number [facility] [address] [place] [phone] * POCT Rapid COVID Ag (08/29/2024 3:58 PM EST) [facility] Rapid COVID Ag Negative Swab 08/29/2024 3:58 PM EST Result [facility] POINT OF CARE TEST ENTER/EDIT ORDERABLES Final Result * POCT rapid strep A manually resulted (08/29/2024 3:58 PM EST) [facility] Rapid Strep A Screen Negative Negative, None Detected Swab 08/29/2024 3:58 PM EST Result [facility] POINT OF CARE TEST ENTER/EDIT ORDERABLES Final Result * (ABNORMAL) Lipid Panel with Reflex to Direct LDL (09/15/2022 11:18 AM EST) [facility] Cholesterol, Total 110 <200 mg/dL [facility] HDL Cholesterol 39(L) > OR = 40 mg/dL [facility] Triglycerides 81 <150 mg/dL [facility] LDL Cholesterol 55 mg/dL (calc) [facility] Comment: Reference range: <100 Desirable range <100 mg/dL for primary prevention; ?? <70 mg/dL for patients with CHD or diabetic patients with > or = 2 CHD risk factors. LDL-C is now calculated using the Mehdi calculation, which is a validated novel method providing better accuracy than the Friedewald equation in the estimation of LDL-C. Siddhartha SS et al. CESARIO. 2013;310(19): 1655-2189 (http://education.Cupple/faq/RGR666) Chol/HDLC Ratio 2.8 <5.0 (calc) [facility] Non-HDL Cholesterol 71 <130 mg/dL (calc) [facility] Comment: For patients with diabetes plus 1 major ASCVD risk factor, treating to a non-HDL-C goal of <100 mg/dL (LDL-C of <70 mg/dL) is considered a therapeutic option. 09/15/2022 11:1 8 AM EST 09/15/2022 11:19 AM EST Narrative [facility] - 09/16/2022 1:55 AM EST FASTING:YES FASTING: YES Thor Platt MD LAB BLOOD ORDERABLES Final Result [facility] [address] [place] [phone] [facility] [address] [facility], ([address]) [place] [phone] from Last 3 Months or Most Recently Relevant to Health Maintenance Insurance [facility] Care Teams Nurse Researcher Relationship Specialty Start Date End Date Thor Alvarado MD [address] [place] [phone] PCP - General Internal Medicine 04/08/14
--- OUTSIDE RECORDS SUMMARY | 2024-11-20 15:49 | XMS_ITS | Encounter Summary ---
Author Organization [employer] Address [address] [facility] 7t [place] [address] Care Team Providers Care Coffee Roaster Name Role Phone Thor Alvarado MD Primary Care Provide r Reason for Visit * Reason Onset Date Comments Med Refill 11/17/2024 Encounter Details Date Type Department Care Team ([facility] st Contact Info) Description 11/17/2024 Refill [facility] [address] [place] [address] Lacey Cloud, RN [address] [place] [address] Severe pain Social History Tobacco Use Types [...] Description 02/12/2025 2:00 PM EDT Office Visit [facility] [address] [place] [address] Thor Alvarado MD [address] [place] [address] documented as of this encounter Visit Diagnoses Diagnosis Severe pain documented in this encounter Additional Health Concerns Assessment Noted Time PHQ-9 Depression Total Score: 0 07/15/20 24 2:51 PM EST documented as of this encounter Care Teams Coffee Roaster Relationship Specialty Start Date End Date Thor Alvarado MD [address] [place] [address] PCP - General Internal Medicine 04/08/14 documented as of this encounter
== END 2024-11-20 13:29 | disposition home or self-care (01) ==
LOC: HO.HOS 12:57
PROVIDERS: PCP Internal Medicine; Visit Provider Orthopaedic Surgery
DX: M19.011 Primary osteoarthritis, right shoulder (principal); M19.012 Primary osteoarthritis, left shoulder; F11.20 Opioid dependence, uncomplicated
CPT/HCPCS: 99214

== ENCOUNTER → 2024-11-20 12:56 | Outpatient (BNVA) | payer OTHER, SELFPAY | PROVIDERS: PCP Internal Medicine; Visit Provider Orthopaedic Surgery | DX: M19.012 Primary osteoarthritis, left shoulder (principal); M19.011 Primary osteoarthritis, right shoulder; F11.20 Opioid dependence, uncomplicated | CPT/HCPCS: 99212 ==

== ENCOUNTER 2024-12-12 12:45 | Outpatient (AMB) | payer OTHER, SELFPAY ==
--- OUTSIDE RECORDS SUMMARY | 2024-12-12 12:47 | XMS_ITS | Encounter Summary ---
Author Organization [employer] Address [address] [facility] 7t [place] [address] Care Team Providers Care Cryptologist Name Role Phone Thor Alvarado MD Primary Care Provide r Reason for Visit * Reason Comments Med Refill Encounter Details Date Type Department Care Team ([facility] st Contact Info) Description 11/16/2023 Refill [facility] [address] [place], [place] [phone] Thor Alvarado MD [address] [place], [place] [phone] Social History Tobacco Use Types Packs/Day Years [...] Care Team (Late st Contact Info) Description 02/10/2025 11:00 AM EDT Office Visit [facility] [address] [place] [phone] 02/12/2025 2:00 PM EDT Office Visit [facility] [address] [place] [phone] Thor Alvarado MD [address] [place] [phone] documented as of this encounter Visit Diagnoses Not on filedocumented in this encounter Additional Health Concerns Assessment Noted Time PHQ-9 Depression Total Score: 6 12/22/19 23 1:08 PM EDT documented as of this encounter Care Teams Cryptologist Relationship Specialty Start Date End Date Thor Alvarado MD [address] [place] [phone] PCP - General Internal Medicine 04/08/14 documented as of this encounter
--- OUTSIDE RECORDS SUMMARY | 2024-12-12 12:47 | XMS_ITS | Encounter Summary ---
Author Organization [employer] Address [address] [facility] 7t [place] [address] Care Team Providers Care Physician'S Assistant Name Role Phone Thor Alvarado MD Primary Care Provide r Reason for Visit * Reason Onset Date Comments Med Refill 12/08/2024 Encounter Details Date Type Department Care Team ([facility] st Contact Info) Description 12/08/2024 Refill [facility] [address] [place] [address] Lacey Cloud, ROMERO [address] [place] [address] Severe pain Social History Tobacco Use Types [...] Description 02/10/2025 11:00 AM EDT Office Visit [facility] [address] [place] [address] 02/12/2025 2:00 PM EDT Office Visit [address] [address] Thor Alvarado MD [address] [place] [address] documented as of this encounter Visit Diagnoses Diagnosis Severe pain documented in this encounter Additional Health Concerns Assessment Noted Time PHQ-9 Depression Total Score: 0 07/15/20 24 2:51 PM EST documented as of this encounter Care Teams Physician'S Assistant Relationship Specialty Start Date End Date Thor Alvarado MD [address] [place] [phone] PCP - General Internal Medicine 04/08/14 documented as of this encounter
--- OUTSIDE RECORDS SUMMARY | 2024-12-12 12:47 | XMS_ITS | Encounter Summary ---
Author Organization [employer] Address [address] [facility] 7t [place] [address] Care Team Providers Care Copper Miner Blasting Name Role Phone Thor Alvarado MD Primary Care Provide r Reason for Visit * Reason Onset Date Comments Med Refill 05/23/2024 Encounter Details Date Type Department Care Team ([facility] st Contact Info) Description 05/23/2024 Telephone [facility] [address] [place], [place] [phone] Thor lAvarado MD [address] [place], [place] [phone] Med Refill Social History Tobacco Use Types [...] the past 12 months, has t he [employer], gas, oil or water [employer] threatened to shut off services in your [...] immediate release tablet To be sent to: [id number] - [place] - [address] [facility] documented in this encounter Plan of Treatment Upcoming Encounters Date Type Department Care Team (Late st Contact Info) Description 02/10/2025 11:00 AM EDT Office Visit [facility] [address] [place] [address] 02/12/2025 2:00 PM EDT Office Visit [facility] [address] [place] [address] Thor Alvarado MD [address] [place] [address] documented as of this encounter Visit Diagnoses Not on filedocumented in this encounter Additional Health Concerns Assessment Noted Time PHQ-9 Depression Total Score: 6 12/22/19 23 1:08 PM EDT documented as of this encounter Care Teams Copper Miner Blasting Relationship Specialty Start Date End Date Thor Alvarado MD [address] [place] [phone] PCP - General Internal Medicine 04/08/14 documented as of this encounter
--- OUTSIDE RECORDS SUMMARY | 2024-12-12 12:47 | XMS_ITS | Encounter Summary ---
Author Organization [employer] Address [address] [facility] 7t [place] [address] Care Team Providers Care Sterile Supply Technician Name Role Phone Thor Alvarado MD Primary Care Provide r Reason for Visit * Reason Onset Date Comments Med Refill 11/07/2023 Encounter Details Date Type Department Care Team ([facility] st Contact Info) Description 11/07/2023 Refill [facility] [address] [place], [place] [phone] Thor Alvarado MD [address] [place], [place] [phone] Severe pain Social History Tobacco Use Types [...] the past 12 months, has t he [employer], gas, oil or water [employer] threatened to shut off services in your [...] out of med To be sent to: [id number] [place] - [address] [facility] documented in this encounter Plan of Treatment Upcoming Encounters Date Type Department Care Team (Late st Contact Info) Description 02/10/2025 11:00 AM EDT Office Visit [facility] [address] [place] [address] 02/12/2025 2:00 PM EDT Office Visit [facility] [address] [place] [address] Thor Alvarado MD [address] [place] [address] documented as of this encounter Visit Diagnoses Diagnosis Severe pain documented in this encounter Additional Health Concerns Assessment Noted Time PHQ-9 Depression Total Score: 6 12/22/19 23 1:08 PM EDT documented as of this encounter Care Teams Sterile Supply Technician Relationship Specialty Start Date End Date Thor Alvarado MD [address] [place] [phone] PCP - General Internal Medicine 04/08/14 documented as of this encounter
--- OUTSIDE RECORDS SUMMARY | 2024-12-12 12:47 | XMS_ITS | Encounter Summary ---
Author Organization [employer] Address [address] [facility] 7t [place] [address] Care Team Providers Care Morals Squad Police Officer Name Role Phone Thor Alvarado MD Primary Care Provide r Reason for Visit * Reason Onset Date Comments Med Refill 05/17/2023 Encounter Details Date Type Department Care Team ([facility] st Contact Info) Description 05/17/2023 Telephone [facility] [address] [place], [place] [phone] Thor Alvarado MD [address] [place], [place] [phone] Med Refill Social History Tobacco Use Types [...] the past 12 months, has t he [employer], gas, oil or water company threatened to [...] Description 02/10/2025 11:00 AM EDT Office Visit [facility] [address] [place] [phone] 02/12/2025 2:00 PM EDT Office Visit [facility] [address] [place] [phone] Thor Alvarado MD [address] [place] [address] documented as of this encounter Visit Diagnoses Not on filedocumented in this encounter Additional Health Concerns Assessment Noted Time PHQ-9 Depression Total Score: 6 12/22/19 23 1:08 PM EDT documented as of this encounter Care Teams Morals Squad Police Officer Relationship Specialty Start Date End Date Thor Avlarado MD [address] [place] [address] PCP - General Internal Medicine 04/08/14 documented as of this encounter
--- OUTSIDE RECORDS SUMMARY | 2024-12-12 12:47 | XMS_ITS | Encounter Summary ---
Author Organization [employer] Address [address] [facility] 7t [place] [address] Care Team Providers Care Senior Program Manager Name Role Phone Thor Alvarado MD Primary Care Provide r Reason for Visit * Reason Onset Date Comments Med Refill 11/26/2024 Encounter Details Date Type Department Care Team ([facility] st Contact Info) Description 11/26/2024 Telephone [facility] [address] [place], [place] [phone] Thor Alvarado MD 230 [place], [place] [phone] Med Refill Social History Tobacco Use Types [...] encounter Miscellaneous Notes * Telephone Encounter - Kendra Phelps - 11/26/2024 2:47 PM EDT TC from pt requesting medication refill. Medications needing refill : oxyCODONE (Roxicodone) 15 MG immediate release tablet To be sent to: [facility]/pharmacy #[address] [place] [address] documented in this encounter Plan of Treatment Upcoming Encounters Date Type Department Care Team (Late st Contact Info) Description 02/10/2025 11:00 AM EDT Office Visit [facility] [address] [place] [address] 02/12/2025 2:00 PM EDT Office Visit [facility] [address] [place] [address] Thor Alvarado MD [address] [place] [address] documented as of this encounter Visit Diagnoses Not on filedocumented in this encounter Additional Health Concerns Assessment Noted Time PHQ-9 Depression Total Score: 0 07/15/20 24 2:51 PM EST documented as of this encounter Care Teams Senior Program Manager Relationship Specialty Start Date End Date Thor Alvarado MD [address] [place] [address] PCP - General Internal Medicine 04/08/14 documented as of this encounter
--- OUTSIDE RECORDS SUMMARY | 2024-12-12 12:47 | XMS_ITS | Encounter Summary ---
Author Organization [employer] Address 75 [facility] 7t [place] [address] Care Team Providers Care Zoning Engineer Name Role Phone Thor Alvarado MD Primary Care Provide r Reason for Visit * Reason Onset Date Comments Med Refill 12/08/2024 Encounter Details Date Type Department Care Team ([facility] st Contact Info) Description 12/08/2024 Telephone [facility] 230 [place], [place] [phone] Thor Alvarado MD 230 [place], [place] [phone] Med Refill Social History Tobacco Use Types [...] * Telephone Encounter - Bhavya Guerra - 12/08/2024 10:32 AM EDT TC from pt requesting medication refill. Medications needing refill : oxyCODONE (Roxicodone) 15 MG immediate release tablet To be sent to: [facility]/pharmacy [address] [place] [address] Pt stated only received partial refill. documented in this encounter Plan of Treatment Upcoming Encounters Date Type Department Care Team (Late st Contact Info) Description 02/10/2025 11:00 AM EDT Office Visit [facility] [address] [place] [address] 02/12/2025 2:00 PM EDT Office Visit [facility] [address] [place] [address] Thor Alvarado MD [address] [place] [address] documented as of this encounter Visit Diagnoses Not on filedocumented in this encounter Additional Health Concerns Assessment Noted Time PHQ-9 Depression Total Score: 0 07/15/20 24 2:51 PM EST documented as of this encounter Care Teams Zoning Engineer Relationship Specialty Start Date End Date Thor Alvarado MD [address] [place] [address] PCP - General Internal Medicine 04/08/14 documented as of this encounter
--- OUTSIDE RECORDS SUMMARY | 2024-12-12 12:47 | XMS_ITS | Encounter Summary ---
Author Organization [employer] Address 75 [facility] 7t [place] [address] Care Team Providers Care Paster Hat Lining Name Role Phone Thor Alvarado MD Primary Care Provide r Reason for Visit * Reason Onset Date Comments Medication Question 11/25/2024 Encounter Details Date Type Department Care Team ([facility] st Contact Info) Description 11/25/2024 Telephone [facility] 230 [place], [place] [phone] Thor Alvarado MD 230 [place], [place] [phone] Medication Question Social History Tobacco Use Types Packs/Day Years [...] * Telephone Encounter - Bhavya Guerra - 11/25/2024 11:19 AM EDT Tc from pt requesting to speak [employer] nurse regarding medication oxyCODONE (Roxicodone) 15 MG immediate release tablet. Contact pt at [phone] (bhutanese) documented in this encounter Plan of Treatment Upcoming Encounters Date Type Department Care Team (Late st Contact Info) Description 02/10/2025 11:00 AM EDT Office Visit [facility] [address] [place] [address] 02/12/2025 2:00 PM EDT Office Visit [facility] [address] [place] [address] Thor Alvarado MD [address] [place] [address] documented as of this encounter Visit Diagnoses Not on filedocumented in this encounter Additional Health Concerns Assessment Noted Time PHQ-9 Depression Total Score: 0 07/15/20 24 2:51 PM EST documented as of this encounter Care Teams Paster Hat Lining Relationship Specialty Start Date End Date Thor Alvarado MD [address] [place] [address] PCP - General Internal Medicine 04/08/14 documented as of this encounter
--- OUTSIDE RECORDS SUMMARY | 2024-12-12 12:47 | XMS_ITS | Encounter Summary ---
Author Organization [employer] Address 75 [facility] 7t [place] [address] Care Team Providers Care Industrial Therapist Name Role Phone Thor Alvarado MD Primary Care Provide r Reason for Visit * Reason Onset Date Comments Med Refill 11/17/2024 Encounter Details Date Type Department Care Team ([facility] st Contact Info) Description 11/17/2024 Telephone [facility] 230 [place], [place] [phone] Thor Alvarado MD 230 [place], [place] [phone] Med Refill Social History Tobacco Use Types [...] immediate release tablet To be sent to: [facility][id number] [place], [place] - [address] [facility] documented in this encounter Plan of Treatment Upcoming Encounters Date Type Department Care Team ([facility] st Contact Info) Description 02/10/2025 11:00 AM EDT Office Visit [facility] [address] [place] [address] 02/12/2025 2:00 PM EDT Office Visit [facility] [address] [place] [address] Thor Alvarado MD [address] [place] [address] documented as of this encounter Visit Diagnoses Not on filedocumented in this encounter Additional Health Concerns Assessment Noted Time PHQ-9 Depression Total Score: 0 07/15/20 24 2:51 PM EST documented as of this encounter Care Teams Industrial Therapist Relationship Specialty Start Date End Date Thor Alvarado MD [address] [place] [address] PCP - General Internal Medicine 04/08/14 documented as of this encounter
--- OUTSIDE RECORDS SUMMARY | 2024-12-12 12:47 | XMS_ITS | Clinical Summary ---
Author Organization [employer] Address 75 [facility] 7t [place] [address] Care Team Providers Care Nondestructive Tester Name Role Phone Thor Alvarado MD [...] to 28 days. 168 tablet 025 2024 Active oxyCODONE (Roxicodone) 15 [...] November 21, 2024. 84 tablet 025 2024 Discontinued(R eorder (will not [...] 3:04 PM EST): Under the care of [facility] cardiology, last seen 05/09/2024 They recommended to [...] mg po TID and Oxycodone. Seen at [facility], received steroid injections both [...] mg po TID and Oxycodone. Seen at [facility], received steroid injections both [...] 300 mg po TID. Will refer to [facility] Follow up with me [...] injury. Seen in the past by a aviation electronics technician, Dr. Silva, and orthopedist specialist at [facility]. Pt is not a good candidate [...] like to see an orthopaedic specialist in [place] Assessment & Plan (01/22/2024 2:56 PM EDT): Patient here for a follow up He has chronic bilateral shoulder pain, described as intensity 8/10. Pain worsens with movement. Difficulty with overhead activity. Right-handed. No injury. Seen in the past by a aviation electronics technician, Dr. Silva, and orthopedist specialist at [facility]. Pt is not a good candidate [...] contract with us. He was seen by [facility] 10/31/2023 Assessment & Plan (09/27/2023 9:16 AM EST): Patient here for a follow up He has chronic bilateral shoulder pain, described as intensity 8/10. Pain worsens with movement. Difficulty with overhead activity. Right-handed. No injury. Seen in the past by a aviation electronics technician, Dr. Silva, and orthopedist specialist at [facility]. Pt is not a good candidate [...] with us. He was seen by Orth[facility] 05/22/2023 for a steroid injection. Assessment & Plan (04/24/2023 12:54 PM EDT): Patient here for a follow up He has chronic bilateral shoulder pain, described as intensity 8/10. Pain worsens with movement. Difficulty with overhead activity. Right-handed. No injury. Seen in the past by a aviation electronics technician, Dr. Silva, and orthopedist specialist at [facility]. Pt is not a good candidate [...] would like to be referred back to [facility] for a steroid injection. He has had good results with these in the past. Assessment & Plan (09/14/2022 12:24 PM EST): Patient withchronic bilateral shoulder pain intensity 8/10 Patient has a Hx of persistent severe bilateral shoulder pain L>R Pain worsens with movement. Difficulty with overhead activity. Right-handed. No injury. Seen in the past by a aviation electronics technician, Dr. Silva, and orthopedist, [facility], in the past. Pt is not a [...] Last visit he was referred back to [facility], pt received a steroid injection back then [...] (09/14/2022 1:11 PM EST): Pt admitted to [facility] 11/24/2019 after Oncologist performed routine labs and [...] of chronic persistent anemia, evaluated by a Lna at [facility] on 10/04/2011. They apparently repeated his stool [...] Encounters Date Type Department Care Team Description 12/08/2024 Refill [facility] [address] [place] [address] Lacey Cloud RN Severe pain 12/08/2024 Telephone [facility] [address] [place] [address] Thor Alvarado MD Med Refill 11/27/2024 3:00 PM EDT Clinical Support [facility] [address] [place] [address] Lacey Cloud RN Chronic pain syndrome (Primary Dx) 11/27/2024 Refill [facility] [address] [place] [address] Lacey Cloud RN Severe pain 11/27/2024 Travel 11/27/2024 Telephone [facility] [address] [place] [address] Lacey Cloud RN ceramic engineer 11/26/2024 Telephone [facility] [address] [place] [address] Lacey Cloud RN ceramic engineer 11/26/2024 Telephone [facility] [address] [place] [address] Thor Alvarado MD Med Refill 11/26/2024 Telephone [facility] [address] [place] [address] Lacey Cloud, RN 11/26/2024 Telephone [facility] [address] [place] [address] Lacey Cloud, RN ceramic engineer 11/25/2024 Telephone [facility] [address] [place] [address] Lacey Cloud, RN ceramic engineer 11/25/2024 Telephone [facility] [address] [place] [address] Lacey Cloud, RN 11/25/2024 Telephone [facility] [address] [place] [address] Thor Alvarado MD Medication Question 11/17/2024 Refill [facility] [address] [place] [address] Lacey Cloud, ROMERO Severe pain 11/17/2024 Telephone [facility] [address] [place] [address] Thor Alvarado MD Med Refill 10/30/2024 Telephone [facility] [address] [place] [address] Thor Alvarado MD DME from Home care delivered 10/29/2024 Telephone [facility] [address] [place] [address] Lacey Cloud, RN ceramic engineer 10/23/2024 Refill [facility] [address] [place] [address] Thor Alvarado MD Severe pain 10/13/2024 Refill [facility] [address] [place] [address] Thor Alvarado MD Mixed hyperlipidemia 10/11/2024 Refill [facility] [address] [place] [address] Thor Alvarado MD Chronic pain syndrome 10/09/2024 2:15 PM EST Office Visit [facility] [place] [address] Thor Alvarado MD Primary hypertension (Primary Dx); ARABELLA on CPAP; 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); Supraventricular tachycardia (CMS/HCC); Metastasis from malignant tumor of prostate (CMS/HCC); Severe obesity (BMI 35.0-39.9) with comorbidity (CMS/HCC); Chronic pain syndrome; Dietary counseling; Exercise counseling; Erectile dysfunction due to diseases classified elsewhere; Arthrosis of right shoulder region 10/09/2024 Travel 09/30/2024 Patient Outreach [facility] [place] [address] Thor Alvarado MD Pre-visit Planning (Pre-visit planning - LVM ) 09/29/2024 Telephone [facility] [address] [facility] [place] [address] Lacey Cloud RN 09/29/2024 Refill [facility] [address] [facility] [place] [address] Lacey Cloud, ROMERO Severe pain 09/26/2024 Refill [facility] [address] [place] [address] Thor Alvarado MD Severe pain 09/26/2024 Telephone [facility] [place] [address] Thor Alvarado MD 09/26/2024 Telephone [facility] [address] [place] [address] Thor Alvarado MD Referral 09/25/2024 Telephone [facility] [address] [place] [address] Thor Alvarado MD Chart Prep 09/19/2024 10:00 AM EST Clinical Support [facility] [place] [address] Lacey Cloud electronics tech pain syndrome 09/19/2024 Refill [facility] [address] [place] [address] Lacey Cloud RN Severe pain 09/19/2024 Travel 09/18/2024 Travel 09/18/2024 Telephone [facility] [address] [place] [address] Lacey Cloud RN 09/17/2024 Telephone [facility] [address] [place] [address] Lacey Cloud RN ceramic engineer 09/17/2024 Telephone [facility] [address] [place] [address] Thor Alvarado MD Med Refill 09/16/2024 Refill [facility] [address] [place] [address] Thor Alvarado MD Severe pain from Last 3 Months Immunizations Name Administration [...] Description 02/10/2025 11:00 AM EDT Office Visit [facility] [address] [place] [address] 02/12/2025 2:00 PM EDT Office Visit [facility] [address] [place], [place] [phone] Thor Alvarado MD 230 [place] [address] Health Maintenance Due Date Last Done Comments [...] Comments POCT KWAME-14 URINE DRUG SCREEN Routine 11/27/2024 3:14 PM EDT Chronic pain syndrome POCT KWAME-14 URINE DRUG SCREEN Routine 09/19/2024 10:14 AM EST Chronic pain syndrome LIPID PANEL WITH REFLEX TO DIRECT LDL Routine 09/15/2022 11:18 AM EST Metastatic adenocarcinoma to prostate (CMS/HCC) from Last 3 Months or Most Recently Relevant to Health Maintenance Results * POCT KWAME-14 Urine Drug Screen (11/27/2024 3:14 PM EDT) Only the most recent of2 resultswithin the time period is included. Opiate Screen, Urine Positive TCA, Urine Positive Oxycodone Screen, Urine Positive Urine Urine specimen obtained by clean catch procedure / Unknown 11/27/2024 3:14 PM EDT Lacey Jesus RN - 11/27/2024 3:14 PM EDT Lot# [id number] Exp: 03-25-26 Thor Platt MD POINT OF CARE TEST EN TER/EDIT ORDERABLES Final Result * (ABNORMAL) Lipid Panel with Reflex to Direct LDL (09/15/2022 11:18 AM EST) Cholesterol, Total 110 <200 mg/dL [facility] HDL Cholesterol 39(L) > OR = 40 mg/dL [facility] Triglycerides 81 <150 mg/dL [facility] LDL Cholesterol 55 mg/dL (calc) [facility] Comment: Reference range: <100 Desirable range <100 mg/dL for primary prevention; ?? <70 mg/dL for patients with CHD or diabetic patients with > or = 2 CHD risk factors. LDL-C is now calculated using the Mehdi calculation, which is a validated novel method providing better accuracy than the Friedewald equation in the estimation of LDL-C. Siddhartha SS et al. CESARIO. 2013;310(19): 8568-0283 (http://education.Lightswitch/faq/FQV730) Chol/HDLC Ratio 2.8 <5.0 (calc) [facility] Non-HDL Cholesterol 71 <130 mg/dL (calc) [facility] Comment: For patients with diabetes plus 1 major ASCVD risk factor, treating to a non-HDL-C goal of <100 mg/dL (LDL-C of <70 mg/dL) is considered a therapeutic option. 09/15/2022 11:1 8 AM EST 09/15/2022 11:19 AM EST Narrative [facility] - 09/16/2022 1:55 AM EST FASTING:YES FASTING: YES Thor Platt MD LAB BLOOD ORDERABLES Final Result [facility] [address], [place] [address] [facility] [address] [facility], (Nl[address]) [place] [address] from Last 3 Months or Most Recently Relevant to Health Maintenance Insurance [facility] SN[facility] OPTIONS (HMO D-SNP) [facility] OPTIONS (HMO D-SNP) Care Teams Nondestructive Tester Relationship Specialty Start Date End Date Thor Alvarado MD [address] [place] [address] PCP - General Internal Medicine 04/08/14
--- OUTSIDE RECORDS SUMMARY | 2024-12-12 12:47 | XMS_ITS | Encounter Summary ---
Author Organization [employer] Address 75 [facility] 7t [place] [address] Care Team Providers Care Feather Drying Machine Operator Name Role Phone Thor Alvarado MD Primary Care Provide r Reason for Visit * Reason Onset Date Comments Med Refill 08/15/2024 Encounter Details Date Type Department Care Team ([facility] st Contact Info) Description 08/15/2024 Telephone [facility] 230 [place], [place] [phone] Thor Alvarado MD 230 [place], [place] [phone] Med Refill Social History Tobacco Use Types [...] Miscellaneous Notes * Telephone Encounter - Claudio Osbaldo - 08/15/2024 4:35 PM EST TC from pt requesting medication refill. Medications needing refill : oxyCODONE (Roxicodone) 15 MG immediate release tablet To be sent to: [id number] [place], [place] - [address] [facility] documented in this encounter Plan of Treatment Upcoming Encounters Date Type Department Care Team ([facility] st Contact Info) Description 02/10/2025 11:00 AM EDT Office Visit [facility] [address] [place] [address] 02/12/2025 2:00 PM EDT Office Visit [facility] [address] [place] [address] Thor Alvarado MD [address] [place] [address] documented as of this encounter Visit Diagnoses Not on filedocumented in this encounter Additional Health Concerns Assessment Noted Time PHQ-9 Depression Total Score: 0 07/15/20 24 2:51 PM EST documented as of this encounter Care Teams Feather Drying Machine Operator Relationship Specialty Start Date End Date Thor Alvarado MD 230 [place] [address] PCP - General Internal Medicine 04/08/14 documented as of this encounter
--- OUTSIDE RECORDS SUMMARY | 2024-12-12 12:47 | XMS_ITS | Encounter Summary ---
Author Organization [employer] Address 75 [facility] 7t [place] [address] Care Team Providers Care Economic Consultant Name Role Phone Thor Alvarado MD Primary Care Provide r Reason for Visit * Reason Onset Date Comments Med Refill 06/23/2024 Encounter Details Date Type Department Care Team ([facility] st Contact Info) Description 06/23/2024 Telephone [facility] 230 [place], [place] [phone] Thor Alvarado MD 230 [place], [place] [phone] Med Refill Social History Tobacco Use Types [...] the past 12 months, has t he [employer], gas, oil or water [facility] threatened to shut off services in your [...] immediate release tablet To be sent to: [facility][id number] - [place] - [address] [facility] documented in this encounter Plan of Treatment Upcoming Encounters Date Type Department Care Team (Late st Contact Info) Description 02/10/2025 11:00 AM EDT Office Visit [facility] [address] [place] [address] 02/12/2025 2:00 PM EDT Office Visit [facility] [address] [place] [address] Thor Alvarado MD 230 [place] [address] documented as of this encounter Visit Diagnoses Not on filedocumented in this encounter Additional Health Concerns Assessment Noted Time PHQ-9 Depression Total Score: 6 12/22/19 23 1:08 PM EDT documented as of this encounter Care Teams Economic Consultant Relationship Specialty Start Date End Date Thor Alvarado MD [address] [place] [address] PCP - General Internal Medicine 04/08/14 documented as of this encounter
--- OUTSIDE RECORDS SUMMARY | 2024-12-12 12:48 | XMS_ITS | Encounter Summary ---
Author Organization [employer] Address 75 [facility] 7t [place] [address] Care Team Providers Care Blood Donor Recruiter Name Role Phone Thor Alvarado MD Primary Care Provide r Reason for Visit * Reason Comments Med Refill Encounter Details Date Type Department Care Team (Late st Contact Info) Description 03/28/2023 Refill [facility] MEDICINE [address] [place] [address] [phone] Thor Alvarado MD [address] [place] [address] [phone] Social History Tobacco Use Types Packs/Day Years [...] Description 02/10/2025 11:00 AM EDT Office Visit [facility] MEDICINE [address] [place] [address] [phone] 02/12/2025 2:00 PM EDT Office Visit [facility] MEDICINE [address] [place] [address] [phone] Thor Alvarado MD 230 [place] [address] documented as of this encounter Visit Diagnoses Not on filedocumented in this encounter Additional Health Concerns Assessment Noted Time PHQ-9 Depression Total Score: 6 12/22/19 23 1:08 PM EDT documented as of this encounter Care Teams Blood Donor Recruiter Relationship Specialty Start Date End Date Thor Alvarado MD [address] [place] [address] [place] [address] PCP - General Internal Medicine 04/08/14 documented as of this encounter
--- NOTE | 2024-12-12 12:55 | A.OFFVIS_ITS ---
Intake Visit Reasons: erectile dysfunction Intake Note: Patient is present for erectile dysfunction Urology Medication:none Antibiotic Allergy:none Blood Thinner:aspirin Dry Cell Sealer Required: No Allergies acetaminophen [From TYLENOL] Adverse Reaction (Unknown, Verified 12/12/24 12:57) CAN'T TAKE BECAUSE OF A HEART CONDITION PER PT ibuprofen [IBUPROFEN] Adverse Reaction (Unknown, Verified 12/12/24 12:57) CAN'T TAKE BECAUSE OF LIVER PROBLEMS PER PT. HPI Comments Details: Merlin is a pleasant Italian-speaking male. He is a patient of Dr.Esparza- Platt. He is seen for the following urologic conditions - erectile dysfunction in the setting of metastatic prostate cancer, ischemic heart disease Italian-speaking male. Italian translation provided by qualified electromedical equipment technician Primary concern is erectile dysfunction He has read about penile prosthetics Discussion today focused on use of a penile pump. Use of a penile pump was required for six-month for consideration of penile prosthetic. The aim of the pumps to improve blood flow there by maximizing both length and girth for potential penile prosthetic placement. In his particular case he is on cardiac medications for his ischemic cardiomyopathy including daily medium dose nitrites. Would be hesitant to use oral PDE5 inhibitors. He tells me his prostate cancer is under good control Information about penile vacuum pump provided Prostate cancer - metastatic Followed by Dr. Brush at [facility] Diagnosed with metastatic prostate cancer to pulmonary nodes positive on PSMA PE T Initial therapy docetaxel plus GnRH plus abiraterone Followed up with 6 cycles, cabazitaxel completed 06/25/2024 [facility] Medical History (Updated 12/12/24 @ 13:28 by Frank Daniel MD) ARABELLA (obstructive sleep apnea) Depressive disorder GERD (gastroesophageal reflux disease) Osteoarthritis, knee Anemia History of prostate cancer History of lung cancer Depression OA (osteoarthritis) of shoulder Surgical History History of esophagogastroduodenoscopy (EGD) Hx of colonoscopy History of surgery of head Hx of hernia repair Family History Father History of prostate cancer Brother History of prostate cancer History of throat cancer Mother No problems noted. Social History Household Members: Spouse Alcohol intake: current Alcohol intake frequency: does not drink Current occupational status: disabled Review of Systems Const Denies chills and Denies fever(s) Card Reports no additional complaints and Denies syncope Resp Denies cough GI Denies abdominal pain and Denies heartburn Reports as per HPI and Denies change in libido Neuro Denies syncope Psych Denies change in libido Endo Denies change in libido Physical Exam Const General: cooperative, healthy appearing, comfortable and no acute distress Orientation/consciousness: patient oriented x3 HEENT Face and sinus: Yes normal facial exam Mouth: moist mucous membranes Neck Neck: Yes normal visual inspection, Yes full ROM and Yes trachea midline Chest Chest palpation & inspection: normal inspection of the chest Resp Effort & Inspection: normal respiratory effort, able to speak in complete sentences and no respiratory distress GI Inspection: Yes normal to inspection Back/Spine/Pelvis Cervical Spine: normal cervical lordosis Thoracic/Lumbar Spine: thoracic and lumbar spine normal to inspection Skin General skin exam: no rashes or lesions noted Neuro General: patient oriented x3, gait normal, tone normal and moves all extremities Extrem General: Yes normal to inspection and Yes capillary refill normal Assessment & Plan Assessment & Plan (1) Prostate cancer metastatic to intraabdominal lymph node: Code(s): C61 - Malignant neoplasm of prostate; C77.2 - Secondary and unspecified malignant neoplasm of intra-abdominal lymph nodes Category: Medical Plan Trial penile pump Orders: Orders Testosterone, Total 6 Months C61 - Malignant neoplasm of prostate, C77.2 - Secondary and unspecified malignant neoplasm of intra-abdominal lymph nodes Prostate Specific Antigen 6 Months C61 - Malignant neoplasm of prostate, C77.2 - Secondary and unspecified malignant neoplasm of intra-abdominal lymph nodes Patient Instructions: This note is constructed using voice recognition software. While every effort h as been made to ensure accuracy billing customer service representative errors may have been included. Imaging studies, laboratory and physical exam results were discussed and reviewed in detail. No major barriers to patient understanding were identified. An opportunity to ask questions regarding the treatment plan was provided. All questions were answered. The patient expressed understanding and agreement with the above treatment plan. The patient is aware they should contact our office by phone for worsening of their current condition or the appearance of new urologic symptoms. Compliance is encouraged with any medications and followup testing that is ordered. It is a privilege to participate in the urologic care of your patient. If you have any questions or concerns regarding treatment for the above conditions, or other urologic issues, please do not hesitate to contact me. The office telephone contact is [phone]. Sincerely, Dr Frank Daniel MD, [facility] - Urology Compassionate Specialist Care for the Genitourinary System Coding Level of Care Code New Pt Level 4 (34440) Diagnoses Prostate cancer metastatic to intraabdominal lymph node C61; C77.2
== END 2024-12-12 13:29 | disposition home or self-care (01) ==
LOC: HO.HUSH 12:45
PROVIDERS: PCP Internal Medicine; Visit Provider Urology
DX: C61 Malignant neoplasm of prostate (principal); C77.2 Secondary and unspecified malignant neoplasm of intra-abdominal lymph nodes
CPT/HCPCS: 99204

== ENCOUNTER → 2024-12-12 12:45 | Outpatient (BNVA) | payer OTHER, SELFPAY | PROVIDERS: PCP Internal Medicine; Visit Provider Urology | DX: N52.9 Male erectile dysfunction, unspecified (principal); C61 Malignant neoplasm of prostate; C77.2 Secondary and unspecified malignant neoplasm of intra-abdominal lymph nodes | CPT/HCPCS: 99202 ==

== ENCOUNTER 2025-03-09 08:29 | Outpatient (REF) | payer OTHER, SELFPAY ==
--- OUTSIDE RECORDS SUMMARY | 2025-03-09 08:49 | XMS_ITS | Encounter Summary ---
Author Organization [employer] Address [address] [facility] 7t [place] [address] Care Team Providers Care Ms Access Database Developer Name Role Phone Thor Alvarado MD Primary Care Provide r Reason for Visit * Reason Onset Date Comments Med Refill 12/31/2024 Encounter Details Date Type Department Care Team ([facility] st Contact Info) Description 12/31/2024 Telephone [facility] MEDICINE [address] [place] [address] Thor Alvarado MD [address] [place], [place] [phone] Med Refill Social History Tobacco Use Types [...] encounter Miscellaneous Notes * Telephone Encounter - Susan Dutton - 12/31/2024 9:15 AM EDT TC from pt requesting medication refill. Medications needing refill : oxyCODONE (Roxicodone) 15 MG immediate release tablet To be sent to: [id number] [place], [place] - [address] [facility] documented in this encounter Plan of Treatment Upcoming Encounters Date Type Department Care Team ([facility] st Contact Info) Description 03/17/2025 11:00 AM EDT Office Visit [facility] MEDICINE [address] [place] [address] 05/14/2025 2:00 PM EDT Office Visit [facility] MEDICINE [address] [place] [address] Thor Alvarado MD [address] [place] [address] documented as of this encounter Visit Diagnoses Not on filedocumented in this encounter Additional Health Concerns Assessment Noted Time PHQ-9 Depression Total Score: 0 07/15/20 24 2:51 PM EST documented as of this encounter Care Teams Ms Access Database Developer Relationship Specialty Start Date End Date Thor Alvarado MD [address] [place] [address] PCP - General Internal Medicine 04/08/14 documented as of this encounter
--- OUTSIDE RECORDS SUMMARY | 2025-03-09 08:49 | XMS_ITS | Patient Health Record ---
Author Organization [facility] Address [address] [place] [address] Care Team Providers Care Sergeant Of Corrections Name Role Phone Lucas Platt MD, Thor Primary Care Provide r Unavailable DelgadoRamez Unavailable [phone] Agustin Burns Unavailable Unavailable Reason For Referral No Information Medications Medication SIG (Take, Route, Frequency, Duration) Notes Start Date End Date Status Amitriptyline HCl 25mg Active Simvastatin 80mg Act kobe Aspir-81 81mg Active Lisinopril 20mg Acti ve Metoprolol & Diet Manage Prod 200mg Active Spironolactone 25mg Active Omeprazole 40mg 08/06/2024 08/06/2024 Ac tive Colyte with Flavor Packs 240 GM as directed Orally Once a day for 1 day(s) 12/08/2011 Active Problems Problem Type SNOMED Code ICD Code Onset Dates Problem Status W/U Status Risk Notes Problem 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 Problem Esophageal reflux (888376260) Esophageal reflux (530.81) Active confirmed Plan Of Treatment Future Test Test Name Order Date UPPER GI ENDOSCOPY 12/08/2011 COLONOSCOPY 12/08/2011 Insurance Providers Payer Name Payer Address Payer Phone Subscriber Number Group Number Insured Name Patient Relationship to Insured Coverage Start Date Coverage End Date [place] OF [place] [address] [place] [phone] [id number] CARRIE BECKWITH Self - patient is the insured MEDICAID OF [facility] [address] [place] [address] [id number] CARRIE BECKWITH Self - patient is the insured Medical (General) History Medical History History ICD Code Had negative colonoscopy in 2004 Had negative EGD in 2004 and 2006 except for a hiatal hernia Denies MD,DM,CVA,Lung disease,renal dise ase HTN Hyperlipidemia GERD Has a defibrillator Sleep apnea-not using CPAP machine curre ntly Anemia Surgical History Surgery Date(Month/Year) Defibrillator Hernia
[2025-03-09 12:13] LABS: Anion Gap 10 (12-20); Blood Urea Nitrogen 13 mg/dL (9-16); Calcium 9.6 mg/dL (8.4-10.2); Carbon Dioxide 30 mmol/L (22-29); Chloride 107 mmol/L (96-108); Cholesterol 151 mg/dL (<200); Estimated Glomerular Filt Rate > 60; HDL Cholesterol 45 mg/dL (>40); Potassium 4.3 mmol/L (3.3-5.1); Sodium 143 mmol/L (135-145); Triglycerides 66 mg/dL (<150)
== END 2025-03-09 08:30 | disposition home or self-care (01) ==
LOC: HO.HHCL 08:29
PROVIDERS: PCP Internal Medicine; Visit Provider Internal Medicine
DX: I10 Essential (primary) hypertension (principal); E78.2 Mixed hyperlipidemia
CPT/HCPCS: 36415; 80048; 80061

== ENCOUNTER 2025-04-09 13:01 | Outpatient (REF) | payer OTHER, SELFPAY ==
--- OUTSIDE RECORDS SUMMARY | 2025-04-09 14:18 | XMS_ITS | Encounter Summary ---
Author Organization [employer] Address [address] [facility] 7t [place] [address] Care Team Providers Care Yardage Control Operator Forming Name Role Phone Thor Alvarado MD Primary Care Provide r Reason for Visit * Reason Onset Date Comments Med Refill 12/31/2024 Encounter Details Date Type Department Care Team ([place] [facility] st Contact Info) Description 12/31/2024 Telephone [facility] MEDICINE [address] [place] [address] Thor Alvarado MD [address] [place], [place] [phone] Med Refill Social History Tobacco Use Types [...] immediate release tablet To be sent to: [facility][id number] [place], [place] - [address] [place] [address] documented in this encounter Plan of Treatment Upcoming Encounters Date Type Department Care Team ([facility] st Contact Info) Description 05/14/2025 2:00 PM EDT Office Visit [facility] MEDICINE [address] [place] [address] Thor Alvarado MD 230 [place] [address] 05/29/2025 9:30 AM EDT Clinical Support [facility] MEDICINE [address] [place] [address] Lacey Cloud RN 505 [place] [address] 07/17/2025 1:00 PM EST Office Visit [facility] OPTOMETRY [address] [place] [address] Latia Barry OD [address] [place] [address] documented as of this encounter Visit Diagnoses Not on filedocumented in this encounter Additional Health Concerns Assessment Noted Time PHQ-9 Depression Total Score: 0 07/15/20 24 2:51 PM EST documented as of this encounter Care Teams Yardage Control Operator Forming Relationship Specialty Start Date End Date Thor Alvarado MD [address] [place] [address] PCP - General Internal Medicine 04/08/14 documented as of this encounter
--- OUTSIDE RECORDS SUMMARY | 2025-04-09 14:18 | XMS_ITS | Encounter Summary ---
Author Organization [employer] Address [address] [facility] 7t [place] [address] Care Team Providers Care Baby Formula Worker Name Role Phone Thor Alvarado MD Primary Care Provide r Reason for Visit * Reason Onset Date Comments Med Refill 03/25/2025 Encounter Details Date Type Department Care Team ([facility] st Contact Info) Description 03/25/2025 Telephone [facility] MEDICINE [address] [place] [address] Thor Alvarado MD 230 [place], [place] [phone] Med Refill Social History Tobacco Use Types [...] * Telephone Encounter - Susan Dutton - 03/25/2025 10:13 AM EDT TC from pt requesting medication refill. Medications needing refill : oxyCODONE (Roxicodone) 15 MG immediate release tablet To be sent to: [id number][id number] [place], [place] - [address] [place] [address] documented in this encounter Plan of Treatment Upcoming Encounters Date Type Department Care Team ([facility] st Contact Info) Description 05/14/2025 2:00 PM EDT Office Visit [facility] MEDICINE [address] [place] [address] Thor Alvarado MD 230 [place] [address] 05/29/2025 9:30 AM EDT Clinical Support [facility] MEDICINE [address] [place] [address] Lacey Cloud RN [address] [place] [address] 07/17/2025 1:00 PM EST Office Visit [facility] OPTOMETRY [address] [place] [address] Latia Barry OD [address] [place] [address] documented as of this encounter Visit Diagnoses Not on filedocumented in this encounter Additional Health Concerns Assessment Noted Time PHQ-9 Depression Total Score: 0 07/15/20 24 2:51 PM EST documented as of this encounter Care Teams Baby Formula Worker Relationship Specialty Start Date End Date Thor Alvarado MD [address] [place] [address] PCP - General Internal Medicine 04/08/14 documented as of this encounter
--- OUTSIDE RECORDS SUMMARY | 2025-04-09 14:18 | XMS_ITS | Encounter Summary ---
Author Organization [employer] Address [address] [facility] 7t [place] [address] Care Team Providers Care Can Top Setter Name Role Phone Thor Alvarado MD Primary Care Provide r Reason for Visit * Reason Onset Date Comments Med Refill 01/28/2025 Encounter Details Date Type Department Care Team ([facility] st Contact Info) Description 01/28/2025 Telephone [facility] MEDICINE [address] [place] [address] Thor Alvarado MD [address] [place], [place] [phone] Med Refill Social History Tobacco Use Types [...] encounter Miscellaneous Notes * Telephone Encounter - Elmira Rosenbaum - 01/28/2025 11:44 AM EDT TC from pt requesting medication refill. Medications needing refill : oxyCODONE (Roxicodone) 15 MG immediate release tablet To be sent to: [address] [address] documented in this encounter Plan of Treatment Upcoming Encounters Date Type Department Care Team ([facility] st Contact Info) Description 05/14/2025 2:00 PM EDT Office Visit [facility] MEDICINE [address] [place] [address] Thor Alvarado MD [address] [place] [address] 05/29/2025 9:30 AM EDT Clinical Support [facility] MEDICINE [address] [place] [address] Lacey Cloud RN 505 [place] [address] 07/17/2025 1:00 PM EST Office Visit [facility] OPTOMETRY [address] [place] [address] Latia Barry OD [address] [place] [address] documented as of this encounter Visit Diagnoses Not on filedocumented in this encounter Additional Health Concerns Assessment Noted Time PHQ-9 Depression Total Score: 0 07/15/20 24 2:51 PM EST documented as of this encounter Care Teams Can Top Setter Relationship Specialty Start Date End Date Thor Alvarado MD 230 [facility] [place] [address] PCP - General Internal Medicine 04/08/14 documented as of this encounter
--- OUTSIDE RECORDS SUMMARY | 2025-04-09 14:18 | XMS_ITS | Encounter Summary ---
Author Organization [employer] Address [address] [facility] 7t [place] [address] Care Team Providers Care Senior Copywriter Name Role Phone Thor Alvarado MD Primary Care Provide r Reason for Visit * Reason Comments Med Refill Encounter Details Date Type Department Care Team ([facility] st Contact Info) Description 11/16/2023 Refill [facility] [address] [place], [place] [phone] Thor Alvarado MD 230 [place], [place] [phone] Social History Tobacco Use Types Packs/Day Years [...] Care Team (Late st Contact Info) Description 05/14/2025 2:00 PM EDT Office Visit [facility] MEDICINE [address] [place] [address] Thor Alvarado MD [address] [place] [address] 05/29/2025 9:30 AM EDT Clinical Support [facility] MEDICINE [address] [place] [address] Lacey Cloud, RN 505 [place] [address] 07/17/2025 1:00 PM EST Office Visit [facility] OPTOMETRY [address] [place] [address] Latia Barry, OD [address] [place] [address] documented as of this encounter Visit Diagnoses Not on filedocumented in this encounter Additional Health Concerns Assessment Noted Time PHQ-9 Depression Total Score: 6 12/22/19 23 1:08 PM EDT documented as of this encounter Care Teams Senior Copywriter Relationship Specialty Start Date End Date Thor Alvarado MD [address] [place] [address] PCP - General Internal Medicine 04/08/14 documented as of this encounter
--- OUTSIDE RECORDS SUMMARY | 2025-04-09 14:18 | XMS_ITS | Encounter Summary ---
Author Organization [employer] Address [address] [facility] 7t [place] [address] Care Team Providers Care Cda Teacher Name Role Phone Thor Alvarado MD Primary Care Provide r Reason for Visit * Reason Onset Date Comments Med Refill 11/07/2023 Encounter Details Date Type Department Care Team (Late st Contact Info) Description 11/07/2023 Refill [facility] MEDICINE [address] [place], [place] [phone] Thor Alvarado MD 230 [place], [place] [phone] Severe pain Social History Tobacco Use Types [...] t he electric, gas, oil or water [employer] threatened to shut off services in your [...] out of med To be sent to: [facility] #[id number] [place], [place] - [address] [place] [address] AT [facility] documented in this encounter Plan of Treatment Upcoming Encounters Date Type Department Care Team (Late st Contact Info) Description 05/14/2025 2:00 PM EDT Office Visit [facility] MEDICINE [address] [place] [address] Thor Alvarado MD [address] [place] [address] 05/29/2025 9:30 AM EDT Clinical Support [facility] MEDICINE [address] [place] [address] Lacey Cloud RN [address] [place] [address] 07/17/2025 1:00 PM EST Office Visit [facility] OPTOMETRY [address] [place] [address] Latia Barry OD [address] [place] [address] documented as of this encounter Visit Diagnoses Diagnosis Severe pain documented in this encounter Additional Health Concerns Assessment Noted Time PHQ-9 Depression Total Score: 6 12/22/19 23 1:08 PM EDT documented as of this encounter Care Teams Cda Teacher Relationship Specialty Start Date End Date Thor Alvarado MD [address] [place] [address] PCP - General Internal Medicine 04/08/14 documented as of this encounter
--- OUTSIDE RECORDS SUMMARY | 2025-04-09 14:18 | XMS_ITS | Encounter Summary ---
Author Organization [employer] Address [address] [facility] 7t [place] [address] Care Team Providers Care Field Health Officer Name Role Phone Thor Alvarado MD Primary Care Provide r Reason for Visit * Reason Comments Med Refill Encounter Details Date Type Department Care Team (Late st Contact Info) Description 03/28/2023 Refill [facility] MEDICINE [address] [place] [address] [phone] Thor Alvarado MD [address] [place] [address] [phone] Social History Tobacco Use Types Packs/Day Years [...] Description 05/14/2025 2:00 PM EDT Office Visit [facility] MEDICINE [address] [place] [address] [phone] Thor Alvarado MD [address] [place] [phone] 05/29/2025 9:30 AM EDT Clinical Support [facility] MEDICINE 230 [place] [address] Lacey Cloud, RN [address] [place] [address] 07/17/2025 1:00 PM EST Office Visit [facility] OPTOMETRY [address] [place] [address] Latia Barry, OD [address] [place] [address] documented as of this encounter Visit Diagnoses Not on filedocumented in this encounter Additional Health Concerns Assessment Noted Time PHQ-9 Depression Total Score: 6 12/22/19 23 1:08 PM EDT documented as of this encounter Care Teams Field Health Officer Relationship Specialty Start Date End Date Thor Alvarado MD [address] [place] [address] PCP - General Internal Medicine 04/08/14 documented as of this encounter
--- OUTSIDE RECORDS SUMMARY | 2025-04-09 14:18 | XMS_ITS | Clinical Summary ---
Author Organization [employer] Address [address] [facility] 7[address] [place] [address] Care Team Providers Care Manager Of Housekeeping Name Role Phone Thor Alvarado MD Primary Care Provide r Allergies No known active allergies Medications * This document contains information received from the source organization and may not represent a complete record from that organization. naloxone (Narcan) 4 mg/0.1 mL nasal spray [...] as instructed 1 each 2 025 Active rosuvastatin (Crestor) 40 MG tabletIndications :Mixed hyperlipidemia Take 1 tablet (40 mg) by mouth Once per day. 30 tablet 11 025 2025 Active amoxicillin (Amoxil) 500 MG capsule take one capsule by mouth three times daily until gone 024 Active Farxiga 10 MG Take 1 tablet by mouth. 023 Active ibuprofen 800 MG tablet Take 1 tablet by mouth every 8 (eight) hours if needed for pain. 025 Active gabapentin (Neurontin) 300 MG capsuleIndication s:Chronic pain syndrome TAKE 1 CAPSULE(300 MG) BY MOUTH THREE TIMES DAILY 90 capsule 3 025 Active oxyCODONE (Roxicodone) 15 MG immediate release tabletIndications :Severe pain Take 1 tablet (15 mg) by mouth every 4 (four) hours if needed (pain) for up to 28 days. Do not start before March 26, 2025. 168 tablet 025 2024 Active gabapentin (Neurontin) 300 MG capsuleIndication s:Chronic pain syndrome TAKE 1 CAPSULE(300 MG) BY MOUTH THREE TIMES DAILY 90 capsule 3 025 2024 Discontinued oxyCODONE (Roxicodone) 15 MG immediate release tabletIndications :Severe pain Take 1 tablet (15 mg) by mouth every 4 (four) hours if needed (pain) for up to 28 days. Do not start before February 27, 2025. 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 -Encouraged multifactorial approach to pain control including pharm and non- pharm modalities -UTOX as expected. Pill count discrepancy. See resaw machine operator for further details. Assessment & Plan (10/09/2024 2:28 PM EST): [...] mg po TID and Oxycodone. Seen at [facility], received steroid injections both [...] mg po TID and Oxycodone. Seen at [facility], received steroid injections both [...] 300 mg po TID. Will refer to [facility] Follow up with me [...] right shoulder region 05/11/2015 Assessment & Plan (02/12/2025 2:02 PM EDT): Patient here for a follow up He has chronic bilateral shoulder pain, described as intensity 8/10. Pain worsens with movement. Difficulty with overhead activity. Right-handed. No injury. Seen in the past by a strand forming machine operator, Dr. Silva, and orthopedist specialist at [facility]. Pt is not a good candidate [...] signed a Narcotic contract with us. Pt saw orthopaedic specialist in [place] 11/20/2024 who stated he was not a good surgical candidate given his dependency of chronic narcotics Assessment & Plan (10/09/2024 2:38 PM EST): Patient here for a follow up He has chronic bilateral shoulder pain, described as intensity 8/10. Pain worsens with movement. Difficulty with overhead activity. Right-handed. No injury. Seen in the past by a strand forming machine operator, Dr. Silva, and orthopedist specialist at [facility]. Pt is not a good candidate [...] like to see an orthopaedic specialist in [place] Assessment & Plan (01/22/2024 2:56 PM EDT): Patient here for a follow up He has chronic bilateral shoulder pain, described as intensity 8/10. Pain worsens with movement. Difficulty with overhead activity. Right-handed. No injury. Seen in the past by a strand forming machine operator, Dr. Silva, and orthopedist specialist at [facility]. Pt is not a good candidate [...] contract with us. He was seen by [facility] 10/31/2023 Assessment & Plan (09/27/2023 9:16 AM EST): Patient here for a follow up He has chronic bilateral shoulder pain, described as intensity 8/10. Pain worsens with movement. Difficulty with overhead activity. Right-handed. No injury. Seen in the past by a strand forming machine operator, Dr. Silva, and orthopedist specialist at [facility]. Pt is not a good candidate [...] with us. He was seen by Ortho [facility] 05/22/2023 for a steroid injection. Assessment & Plan (04/24/2023 12:54 PM EDT): Patient here for a follow up He has chronic bilateral shoulder pain, described as intensity 8/10. Pain worsens with movement. Difficulty with overhead activity. Right-handed. No injury. Seen in the past by a strand forming machine operator, Dr. Silva, and orthopedist specialist at [facility]. Pt is not a good candidate [...] would like to be referred back to [facility] for a steroid injection. He has had good results with these in the past. Assessment & Plan (09/14/2022 12:24 PM EST): Patient withchronic bilateral shoulder pain intensity 8/10 Patient has a Hx of persistent severe bilateral shoulder pain L>R Pain worsens with movement. Difficulty with overhead activity. Right-handed. No injury. Seen in the past by a strand forming machine operator, Dr. Silva, and orthopedist, [facility], in the past. Pt is not a [...] Last visit he was referred back to [facility], pt received a steroid injection back then that lasted in relief for about 3 months, He received another injection with better results Hyperlipidemia 02/02/2015 Assessment & Plan (02/12/2025 2:13 PM EDT): Patient with elevated lipids. Most recent lipid profile from: Lab Results Component Value Date TRIG 81 09/15/2022 09/15/2022 shows a total cholesterol of: 110 triglycerides of: 81 HDL of: 39 and LDL of: 55 Currently on a regimen of: simvastatin 80 mg qhs . Plan: STOP Simvastatin Start Crestor 40 mg po at bedtime Pt advised to try to adhere to a low cholesterol diet, counseled and educated about diet and exercise, Patient encouraged to come up with a personal goal for weight loss. Repeat Lipid profile Assessment & Plan (12/21/2022 12:40 PM EDT): [...] o f prostate 09/08/2014 Assessment & Plan (02/12/2025 2:04 PM EDT): Pt is here for a [...] Cabazitaxel chemotherapy Last seen by Oncology 06/16/2024 Last seen by Urology 12/12/2024 Assessment & Plan (10/09/2024 2:26 PM EST): [...] this month Hypertension 10/20/2013 Assessment & Plan (02/12/2025 2:04 PM EDT): Pt is here for a [...] counseled about weight loss. Assessment & Plan (10/09/2024 2:25 PM EST): [...] (09/14/2022 1:11 PM EST): Pt admitted to [facility] 11/24/2019 after Oncologist performed routine labs and [...] of chronic persistent anemia, evaluated by a Slide Attendant at [facility] on 10/04/2011. They apparently repeated his stool [...] Resolved Date Supraventricular tachycardia 10/09/2024 10/09/2024 Encounters * This document contains information received from the source organization and may not represent a complete record from that organization. Date Type Department Care Team Description 03/25/2025 Travel 03/25/2025 Refill [facility] [address] [place] [address] Lacey Cloud RN Severe pain 03/25/[address] [facility] [address] [place] [address] Thor Alvarado MD Med Refill 03/16/2025 Telephone [facility] [address] [place] [address] Lacey Cloud, ROMERO pain group visit 03/13/[address] [facility] [address] [place] [address] Thor Alvarado MD Appointment Request 03/12/2025 9:30 AM EDT Office Visit [facility] [address] [place] [address] Janett Herrera MD Chronic pain of both shoulders (Primary Dx) 03/12/2025 Travel 03/11/[address] [facility] [address] [place] [address] Thor Alvarado MD Chronic pain syndrome 03/10/2025 1:15 PM EDT Office Visit [facility] [address] [facility] [place] [address] Denice Copeland MD Arthrosis of right shoulder region (Primary Dx); Chronic pain syndrome 03/10/2025 Travel 03/09/2025 9:00 AM EDT Office Visit [facility] [address] [facility] [place] [address] Janett Herrera MD Chronic pain of both shoulders (Primary Dx) 03/09/2025 Travel 03/05/2025 9:45 AM EDT Office Visit [facility] [address] [facility] [place] [address] Janett Herrera MD Chronic pain of both shoulders (Primary Dx) 03/05/2025 Travel 03/03/2025 1:15 PM EDT Office Visit [facility] [place] [address] Denice Copeland MD Arthrosis of right shoulder region (Primary Dx) 03/03/2025 Travel 03/02/2025 9:45 AM EDT Office Visit [facility] [address] [facility] [place] [address] Janett Herrera MD Chronic pain of both shoulders (Primary Dx) 03/02/2025 Travel 02/26/2025 9:15 AM EDT Office Visit [facility] [place] [address] Janett Herrera MD Chronic pain of both shoulders (Primary Dx) 02/26/2025 Travel 02/24/2025 9:15 AM EDT Office Visit [facility] [place] [address] Janett Herrera MD Chronic pain of both shoulders (Primary Dx) 02/24/2025 Refill [facility] [place] [address] Thor Alvarado MD Severe pain 02/24/2025 Travel 02/23/2025 9:45 AM EDT Office Visit [facility] [place] [address] Janett Herrera MD Chronic pain of both shoulders (Primary Dx) 02/23/2025 Travel 02/19/2025 9:45 AM EDT Office Visit [address] [address] Janett Herrera MD Chronic pain of both shoulders (Primary Dx) 02/19/2025 Travel 02/17/2025 1:30 PM EDT Office Visit [address] [address] Denice Copeland MD Long-term current use of opiate analgesic (Primary Dx); Chronic pain syndrome 02/17/2025 Travel 02/16/2025 9:15 AM EDT Office Visit [address] [address] Janett Herrera MD Chronic pain of both shoulders (Primary Dx) 02/16/2025 Travel 02/12/2025 2:00 PM EDT Office Visit [address] [address] Thor Alvarado MD Primary hypertension (Primary Dx); Arthrosis of right shoulder region; Metastasis from malignant tumor of prostate (CMS/HCC); 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); Mixed hyperlipidemia 02/12/2025 Travel 02/11/[address] [address] Thor Alvarado MD chart prep 02/10/2025 11:00 AM EDT Office Visit [address] [address] Nancy Shelton FNP Chronic pain syndrome (Primary Dx); Long-term current use of opiate analgesic 02/10/[address] [address] Maine Fregoso RN Oxycodone count discrepancy; GOVERNMENT AFFAIRS RESEARCHER Agreement renewed today 02/10/2025 Travel 02/03/2025 Patient Outreach [facility] [address] [place] [address] Thor Alvarado MD Pre-visit Planning (SDOH was already completed) 01/30/2025 Telephone [facility] [address] [place] [address] Lacey Cloud RN 01/28/2025 Refill [facility] [address] [place], [place] [phone] Lacey Cloud RN Severe pain 01/28/2025 Telephone [facility] [address] [place], [place] [phone] Thor Alvarado MD Med Refill from Last 3 Months Immunizations Immunization Administration Dates Next Due Influenza High-dose Quadriva [...] Sign Reading Time Taken Comments Blood Pressure 110/76 02/12/2025 1:55 PM EDT Pulse 90 02/12/2025 1:55 PM EDT Temperature 36.4 C (97.5 F) 02/12/2025 1:55 PM EDT Respiratory Rate 15 02/12/2025 1:55 PM EDT Oxygen Saturation 96% 02/12/2025 1:55 PM EDT Inhaled Oxygen Concentration - - Weight 110 kg (242 lb 6.4 oz) 02/12/2025 1:55 PM EDT Height 172.7 cm (5' 8 ) 10/09/2024 2:10 PM EST Body Mass Index 36.86 10/09/2024 2:10 PM EST Plan of Treatment Upcoming Encounters Date Type Department Care Team (Late st Contact Info) Description 05/14/2025 2:00 PM EDT Office Visit [facility] [address] [place] [address] Thor Alvarado MD [address] [place] [address] 05/29/2025 9:30 AM EDT Clinical Support [facility] [address] [place] [address] Lacey Cloud, RN [address] [place] [address] 07/17/2025 1:00 PM EST Office Visit [facility] [address] [place] [address] Onofrerogers Latia, OD [address] [place] [address] Health Maintenance Due Date Last Done Comments Derm Melanoma Skin Check 1945 Hepatitis C Screening 01/10/1964 Zoster Vaccines (2 of 3) 07/06/2015 05/11/2015 RSV Patients and Patients Aged 60 years or older (1 - 1-dose 75+ series) 2021 DTaP/Tdap/Td Vaccines (2 - Td or Tdap) 10/21/2023 10/20/2013, 03/25/2004 COVID-19 Vaccine ( season) 2025 10/09/2022, 08/08/2021, 10/21/2020, Additional history exists Influenza Vaccine (#1) 2025 , 05/11/2020, 05/04/2016, Additional history exists Alcohol/Substance Use Screening 07/15/2025 07/15/2024 Depression Screening 07/15/2025 07/15/2024, 07/15/20 24 SDOH Screening 10/09/2025 10/09/2024 Tobacco Screening 03/03/2026 03/03/2025 Lipid Panel 03/09/2030 03/09/2025, 09/06, 03/17/2021 Pneumococcal Vaccine: 50+ Years Completed 05/24/2022, [...] patient's age to complete this topic Meningococcal B Vaccine Aged Out No l onger eligible based on patient's age to complete [...] Procedure Name Priority Date/Time Associated Diagnosis Comments LIPID PANEL, STANDARD Routine 03/09/2025 8:33 AM EDT Mixed hyperlipidemia BASIC METABOLIC PANEL Routine 03/09/2025 8:33 AM EDT Primary hypertension POCT KWAME-14 URINE DRUG SCREEN Routine 02/10/2025 11:42 AM EDT Chronic pain syndrome from Last 3 Months Results * Lipid Panel, Standard (03/09/2025 8:33 AM EDT) Triglycerides 66 <150 mg/dL [facility] Comment:Desirable Triglyceri de: less than 150 mg/dLBorderline High Triglyceride 150-199 mg/dLHigh Triglyceride: 200-499 mg/dLVery High Triglyceride: greater than or equal to 5OO mg/dL Cholesterol 151 <200 mg/dL [facility] Comment:Desirable Cholestero l: less than 200 mg/dLBorderline High Cholesterol: 200-239 mg/dLHigh Cholesterol: greater than 239 mg/dL LDL Cholesterol Calculated 93 <100 mg/dL [facility] Comment:Desirable LDL: less than 100 mg/dLNear Optimal/Above Optimal LDL: 110- 129 mg/dLBorderline High LDL: 130-159 mg/dLHigh LDL: 160-189 mg/dLVery High LDL: greater than or equal to 190 mg/dL HDL Cholesterol 45 >40 mg/dL [facility] Comment:Desirable HDL: great er than 40 mg/dL Note: This HDL assay may give artificially low results in patients with liver disease. Blood Venous blood specimen / Unknown 03/09/2025 8:33 AM EDT 03/09/2025 11:22 AM EDT Thor Platt MD LAB BLOOD ORDERABLES Final Result Performing Organization Address [facility]/ZIP Co de Phone Number [facility] [address] [place] [phone] * (ABNORMAL) Basic Metabolic Panel (03/09/2025 8:33 AM EDT) Sodium 143 135 - 145 mmol/L [facility] Potassium 4.3 3.3 - 5.1 mmol/L [facility] Chloride 107 96 - 108 mmol/L [facility] Carbon Dioxide 30(H) 22 - 29 mmol/L [facility] Anion Gap 10(L) 12 - 20 [facility] Urea Nitrogen (BUN) 13 9 - 16 mg/dL [facility] Creatinine, Serum 0.99 0.5 - 1.4 mg/dL [facility] Estimated Glomerular Filt Rate >60 [facility] Comment:Chronic Kidney Disea se: Estimated GFR < 60 mL/min/1.31r1Hovuap Kidney Disease: Estimated GFR < 15 mL/min/1.73m2 Glucose 104 60 - 115 mg/dL [facility] Calcium 9.6 8.4 - 10.2 mg/dL [facility] Blood Venous blood specimen / Unknown 03/09/2025 8:33 AM EDT 03/09/2025 11:22 AM EDT Thor Platt MD LAB BLOOD ORDERABLES Final Result Performing Organization Address [facility]/ZIP Co de Phone Number [facility] [address] [place] [phone] * (ABNORMAL) POCT KWAME-14 Urine Drug Screen (02/10/2025 11:42 AM EDT) THC Negative Negative Cocaine Screen, Urine Negative Negative Opiate Screen, Urine Negative Negative Methamphetamine Screen Urine Negative Negative Amphetamine Screen, Urine Negative Negative Benzodiazepines Screen, Urine Negative Negative Barbiturate Screen, Urine Negative Negative Methadone Screen, Urine Negative Negative Buprenophine Screen, Urine Negative Negative TCA, Urine Positive(A) Negative MDMA Urine Negative Negative ng/mL Oxycodone Screen, Urine Positive(A) Negative Phencyclidine (PCP), Urine Negative Negative Propoxyphene, Urine Negative Negative Fentanyl, Urine Negative Negative Urine Urine specimen obtained by clean catch procedure / Unknown 02/10/2025 11:42 AM EDT Nancy Shelton BAR TACKER SEWING MACHINE POINT OF CARE TEST ENTER/EDIT ORDERABLES Final Result from Last 3 Months Insurance [facility] [employer] OPT[employer] (O D-SNP) [place] [id number] Care Teams Manager Of Housekeeping Relationship Specialty Start Date End Date Thor Alvarado MD [address] [place] [address] PCP - General Internal Medicine 04/08/14
--- OUTSIDE RECORDS SUMMARY | 2025-04-09 14:18 | XMS_ITS | Encounter Summary ---
Author Organization [employer] Address [address] [facility] 7t [place] [address] Care Team Providers Care High Lighter Name Role Phone Thor Alvarado MD Primary Care Provide r Reason for Visit * Reason Onset Date Comments Med Refill 05/17/2023 Encounter Details Date Type Department Care Team ([facility] st Contact Info) Description 05/17/2023 Telephone [facility] [address] [place] [address] Thor Alvarado MD [address] [place], [place] [phone] Med Refill Social History Tobacco Use Types [...] t he electric, gas, oil or water [employer] threatened to shut off services in your [...] Description 05/14/2025 2:00 PM EDT Office Visit [facility] [address] [place] [address] Thor Alvarado MD [address] [place] [address] 05/29/2025 9:30 AM EDT Clinical Support [facility] [address] [place] [address] Lacey Cloud, ROMERO [address] [place] [address] 07/17/2025 1:00 PM EST Office Visit [facility] [address] [place] [address] Latia Barry OD [address] [place] [address] documented as of this encounter Visit Diagnoses Not on filedocumented in this encounter Additional Health Concerns Assessment Noted Time PHQ-9 Depression Total Score: 6 12/22/19 23 1:08 PM EDT documented as of this encounter Care Teams High Lighter Relationship Specialty Start Date End Date Thor Alvarado MD [address] [facility] [place] [address] PCP - General Internal Medicine 04/08/14 documented as of this encounter
--- OUTSIDE RECORDS SUMMARY | 2025-04-09 14:18 | XMS_ITS | Patient Health Record ---
Author Organization [facility] Address [address] [place] [address] Care Team Providers Care Pathologist Name Role Phone Lucas Platt MD, Thor Primary Care Provide r Unavailable DelgadoRamez Unavailable [phone] Agustin Burns Unavailable Unavailable Reason For Referral [...] Problem Status W/U Status Risk Notes Problem Anemia due to chronic blood loss (disorder) (661111722) 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 Problem Esophageal reflux (431756062) Esophageal reflux (530.81) Active confirmed Plan Of Treatment Future Test Test Name Order Date UPPER GI ENDOSCOPY 12/08/2011 COLONOSCOPY 12/08/2011 Insurance Providers Payer Name Payer Address Payer Phone Subscriber Number Group Number Insured Name Patient Relationship to Insured Coverage Start Date Coverage End Date [place] [address] [place] [phone] [id number] CARRIE BECKWITH Self - patient is the insured MEDICAID OF [facility] [address] [place] [phone] [id number] CARRIE BECKWITH Self - patient is the insured Medical (General) History Medical History History ICD Code Had negative colonoscopy in 2004 Had negative EGD in 2004 and 2006 except for a hiatal hernia Denies CA,DM,CVA,Lung disease,renal dise ase HTN Hyperlipidemia GERD Has a defibrillator Sleep apnea-not using CPAP machine curre ntly Anemia Surgical History Surgery Date(Month/Year) Defibrillator Hernia
--- OUTSIDE RECORDS SUMMARY | 2025-04-09 14:18 | XMS_ITS | Encounter Summary ---
Author Organization [employer] Address [address] [facility] [address] [place] [address] Care Team Providers Care Warp Hanger Name Role Phone Thor Alvarado MD Primary Care Provide r Reason for Visit * Reason Onset Date Comments Appointment Request 03/13/2025 Encounter Details Date Type Department Care Team ([facility] st Contact Info) Description 03/13/2025 Telephone [facility] [address] [place], [place] [phone] Thor Alvarado MD [address] [place], [place] [phone] Appointment Request Social History Tobacco Use Types Packs/Day Years [...] * Telephone Encounter - Susan Dutton - 03/13/2025 10:05 AM EDT Tc from pt requesting to reschedule apt scheduled on 03/17 due to pt having a family emergency and is flying to [place] today. Contact pt at [phone] (english) documented in this encounter Plan of Treatment Upcoming Encounters Date Type Department Care Team ([facility] st Contact Info) Description 05/14/2025 2:00 PM EDT Office Visit [facility] [address] [place] [phone] Thor Alvarado MD [address] [place] [address] 05/29/2025 9:30 AM EDT Clinical Support [facility] [address] [place] [address] Lacey Cloud RN [address] [place] [address] 07/17/2025 1:00 PM EST Office Visit [facility] OPTOMETRY [address] [place] [address] Latia Barry, OD [address] [place] [address] documented as of this encounter Visit Diagnoses Not on filedocumented in this encounter Additional Health Concerns Assessment Noted Time PHQ-9 Depression Total Score: 0 07/15/20 24 2:51 PM EST documented as of this encounter Care Teams Warp Hanger Relationship Specialty Start Date End Date Thor Alvarado MD [address] [place] [address] PCP - General Internal Medicine 04/08/14 documented as of this encounter
--- OUTSIDE RECORDS SUMMARY | 2025-04-09 14:18 | XMS_ITS | Encounter Summary ---
Author Organization [employer] Address [address] [facility] 7[address] [place] [address] Care Team Providers Care International Accountant Name Role Phone Thor Alvarado MD Primary Care Provide r Reason for Visit * Reason Onset Date Comments Med Refill 11/17/2024 Encounter Details Date Type Department Care Team ([facility] st Contact Info) Description 11/17/2024 Telephone [facility] [address] [place] [address] Thor Alvarado MD [address] [place], [place] [phone] Med Refill Social History Tobacco Use Types [...] immediate release tablet To be sent to: [id number] [place], [place] - [address] [facility] documented in this encounter Plan of Treatment Upcoming Encounters Date Type Department Care Team ([facility] st Contact Info) Description 05/14/2025 2:00 PM EDT Office Visit [facility] [address] [place] [phone] Thor Alvarado MD [address] [place] [address] 05/29/2025 9:30 AM EDT Clinical Support [facility] [address] [place] [phone] Lacey Cloud RN [address] [place] [address] 07/17/2025 1:00 PM EST Office Visit [facility] OPTOM[facility] [address] [place] [address] Latia Barry OD [address] [place] [address] documented as of this encounter Visit Diagnoses Not on filedocumented in this encounter Additional Health Concerns Assessment Noted Time PHQ-9 Depression Total Score: 0 07/15/20 24 2:51 PM EST documented as of this encounter Care Teams International Accountant Relationship Specialty Start Date End Date Thor Alvarado MD [address] [place] [phone] PCP - General Internal Medicine 04/08/14 documented as of this encounter
--- OUTSIDE RECORDS SUMMARY | 2025-04-09 14:18 | XMS_ITS | Encounter Summary ---
Author Organization [employer] Address [address] [facility] 7t [place] [address] Care Team Providers Care Accountant Assistant Name Role Phone Thor Alvarado MD Primary Care Provide r Reason for Visit * Reason Onset Date Comments Med Refill 06/23/2024 Encounter Details Date Type Department Care Team ([facility] st Contact Info) Description 06/23/2024 Telephone [facility] [address] [place] [address] Thor Alvarado MD [address] [place], [place] [phone] Med Refill Social History Tobacco Use Types [...] t he electric, gas, oil or water [employer] threatened to shut off services in your [...] immediate release tablet To be sent to: [id number] - [place], [place] - [address] [facility] documented in this encounter Plan of Treatment Upcoming Encounters Date Type Department Care Team (Late st Contact Info) Description 05/14/2025 2:00 PM EDT Office Visit [facility] [address] [place] [phone] Thor Alvarado MD [address] [place] [address] 05/29/2025 9:30 AM EDT Clinical Support [facility] [address] [place] [address] Lacey Cloud RN [address] [place] [address] 07/17/2025 1:00 PM EST Office Visit [facility] OPT[facility] [address] [place] [address] Latia Barry OD [address] [place] [address] documented as of this encounter Visit Diagnoses Not on filedocumented in this encounter Additional Health Concerns Assessment Noted Time PHQ-9 Depression Total Score: 6 12/22/19 23 1:08 PM EDT documented as of this encounter Care Teams Accountant Assistant Relationship Specialty Start Date End Date Thor Alvarado MD [address] [place] [phone] PCP - General Internal Medicine 04/08/14 documented as of this encounter
[2025-04-09 16:22] LABS: Anion Gap 12 (12-20); Blood Urea Nitrogen 15 mg/dL (9-16); Calcium 9.1 mg/dL (8.4-10.2); Carbon Dioxide 27 mmol/L (22-29); Chloride 103 mmol/L (96-108); Estimated Glomerular Filt Rate > 60; Potassium 4.1 mmol/L (3.3-5.1); Sodium 138 mmol/L (135-145)
== END 2025-04-09 13:02 | disposition home or self-care (01) ==
LOC: HO.HHCL 13:01
PROVIDERS: PCP Internal Medicine; Visit Provider Internal Medicine
DX: I10 Essential (primary) hypertension (principal)
CPT/HCPCS: 36415; 80048

== ENCOUNTER 2025-05-14 14:39 | Outpatient (REF) | payer OTHER, SELFPAY ==
--- NOTE | ~2025-05-14 | XR_ITS ---
EXAMINATION: X-ray bilateral hands CLINICAL INFORMATION: Pain COMPARISON: None TECHNIQUE: Bilateral hands 3 views FINDINGS: Right hand: Osseous mineralization appears slightly decreased. No acute fracture, dislocation or suspicious osseous lesion.. Multifocal joint space narrowing. More prominent findings include mild-moderate radiocarpal joint space narrowing, mild triscaphe and first CMC joint space narrowing. Mild joint space narrowing and some of the interphalangeal joints of the fingers. No erosions. No abnormal soft tissue calcification. Left hand: Osseous mineralization appears slightly decreased. No acute fracture, dislocation or suspicious osseous lesion. Multifocal joint space narrowing. More prominent findings include severe first CMC mild radiocarpal joint space narrowing. Mild narrowing of some of the interphalangeal joints. No erosions. No abnormal soft tissue calcification. 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 Electronically signed by: Cody Cruz MD 05/14/2025 04:37 PM EDT
[2025-05-14 16:26] LABS: MANUAL DIFF FLAG NO
[2025-05-14 16:31] LABS: Hematocrit 40.3 % (42.0-52.0); Hemoglobin 13.0 g/dl (14.0-18.0); Imm Gran Abs Auto 0.02 X10*3/uL (0.00-0.03); Imm Gran Pct Auto 0.3 % (0.0-0.4); Lymphocytes Absolute Auto 1.4 X10*3/uL (1.2-4.9); Mean Corpuscular HGB Conc 32.3 g/dl (31.0-36.0); Mean Corpuscular Hemoglobin 30.7 pg (27.0-33.0); Mean Corpuscular Volume 95.0 fL (80.0-98.0); NRBC Abs Auto 0.000 X10*3/uL (0.0-0.012); NRBC Pct Auto 0.0 /100WBC (0.0-0.2); Platelet Count 188 X10*3/uL (160-400); Red Blood Count 4.24 X10*6/uL (4.60-5.80); White Blood Count 6.8 X10*3/uL (4.8-10.8)
[2025-05-20 11:48] LABS: Anti Nuclear Antibody Screen NEGATIVE (NEGATIVE)
== END 2025-05-14 14:40 | disposition home or self-care (01) ==
LOC: HO.HHCL 14:39
PROVIDERS: PCP Internal Medicine; Visit Provider Internal Medicine
DX: Z01.84 Encounter for antibody response examination (principal); M79.641 Pain in right hand; M79.642 Pain in left hand; D64.9 Anemia, unspecified
CPT/HCPCS: 36415; 73130; 85025; 86038; 86039; 86140; 86431

== ENCOUNTER → 2025-05-14 15:09 | Outpatient (BNV) | payer OTHER, SELFPAY | PROVIDERS: PCP Internal Medicine; Visit Provider Radiology Diagnostic Ultrasound | DX: M19.041 Primary osteoarthritis, right hand (principal); M19.042 Primary osteoarthritis, left hand | CPT/HCPCS: 73130 ==

== ENCOUNTER 2025-06-03 06:47 | Outpatient (REF) | payer OTHER, SELFPAY ==
--- OUTSIDE RECORDS SUMMARY | 2025-05-29 09:30 | XMS_ITS | Encounter Summary ---
Author Organization [employer] Address [address] [facility] 7[address] [place] [address] Care Team Providers Care Neuroscientist Name Role Phone Thor Alvarado MD Primary Care Provide r Reason for Visit * Reason Comments CHAIR CANER Encounter Details Date Type Department Care Team (Latest Contact Info) Description 05/29/2025 9:30 AM EDT Clinical Support [facility] [address] [place] [address] Lacey Cloud RN [address] [place] [address] Chronic pain of both shoulders (Primary Dx) Social History Tobacco Use Types Packs/Day Years [...] AM EDT documented as of this encounter Progress Notes * Lacey Cloud RN - 05/29/2025 9:30 AM EDT SUBJECTIVE: Merlin Guerra is a 80 y.o. year old male who presents for CHAIR CANER Preferred language for medical information: Djib[place]ian Interpreted needed: No Merlin Guerra does report adherence to Oxycodone 15 mg, take 1 tablet every 4 hours PRN, last refilled 05/21/25. The patient last took Oxycodone on: 05/29/25 Medication is: 40% % effective at alleviating pain. 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 Vital Signs Pain Score: 10-Worst pain ever Pain Loc: Back Pain Education: Yes Last PCP visit: 05/14/25 BPI completed on: 02/10/25 , pain severity score: 8, activity interference score: 10 BPI completed on: 09/19/24 , pain severity score: 9, activity interference score: 9 Controlled substance agreement signed: Controlled Substance Agreement 02/10/2025 CHAIR CANER Tier: 2 Current Medications[1] Smoking status: Denies ETOH use: Denies Illicit substances: Denies Marijuana use: No , Lab Results Component Value Date POCTHC Negative 05/29/2025 POCCOCAINEUR Negative 05/29/2025 POCOPIATEUR Negative 05/29/2025 DOAUR Negative 05/29/2025 POCAMPHETAMI Negative 05/29/2025 POCBENZODIUR Negative 05/29/2025 POCBARBSCRN Negative 05/29/2025 POCMETHADOUR Negative 05/29/2025 POCBUPSCRN Negative 05/29/2025 POCTCAUR Positive (A) 05/29/2025 POCMDMAUR Negative 05/29/2025 POCOXYCODONE Positive (A) 05/29/2025 POCPHENCYCUR Negative 05/29/2025 PROPOXUR Negative 05/29/2025 FENTANYLURIN Negative 05/29/2025 ASSESSMENT: Encounter Diagnosis Name Primary? Chronic pain of both shoulders Yes PLAN: Information on pain group given: Previously discussed attended in the past Information on acupuncture given: Previously discussed Narcan education provided: Previously discussed Narcan prescription: active Merlin Guerra will continue taking medication as prescribed and follow up at the next [facility] visit or sooner if needed. Merlin Guerra has verbalized understanding of care plan. Future Appointments Date Time Provider Department Center 07/17/2025 1:00 PM Latia Barry OD [facility] 09/04/2025 11:30 AM Lacey Cloud, [facility] Lacey Cloud RN [1] Current Outpatient Medications: albuterol 108 (90 Base) MCG/ACT inhaler, Inhale 2 puffs every 6 (six) hours if needed for wheezing., Disp: 18 g, Rfl: 11 amoxicillin (Amoxil) 500 MG capsule, take one capsule by mouth three times daily until gone, Disp: , Rfl: Farxiga 10 MG, Take 1 tablet by mouth., Disp: , Rfl: gabapentin (Neurontin) 300 MG capsule, TAKE 1 CAPSULE(300 MG) BY MOUTH THREE TIMES DAILY, Disp: 90 capsule, Rfl: 3 ibuprofen 800 MG tablet, Take 1 tablet by mouth every 8 (eight) hours if needed for pain., Disp: , Rfl: naloxone (Narcan) 4 mg/0.1 mL nasal spray, Administer 0.1 mL into affected nostril(s)., Disp: , Rfl: omeprazole (PriLOSEC) [address] capsule, TAKE 1 CAPSULE BY MOUTH EVERY DAY, Disp: 90 capsule, Rfl: 1 oxyCODONE (Roxicodone) 15 MG immediate release tablet, Take 1 tablet (15 mg) by mouth every 4 (four) hours if needed (pain) for up to 28 days., Disp: 168 tablet, Rfl: 0 rosuvastatin (Crestor) 40 MG tablet, Take 1 tablet (40 mg) by mouth Once per day., Disp: 30 tablet,Rfl: 11 Spacer/Aero-Holding Chambers (AeroChamber MV) inhaler, Use as instructed, Disp: 1 each, Rfl: 2 documented in this encounter Plan of Treatment Upcoming Encounters Date Type Department Care Team (Late st Contact Info) Description 07/17/2025 1:00 PM EST Office Visit [facility] OPT[facility] [address] [place] [address] TarLatia mccloud, OD [address] [place] [address] 09/04/2025 11:30 AM EST Clinical Support [facility] [address] [place], [place] [phone] Lacey Cloud RN [address] [place] [address] documented as of this encounter Procedures Procedure Name Priority Date/Time Associated Diagnosis Comments POCT KWAME-14 URINE DRUG SCREEN Routine 05/29/2025 9:30 AM EDT Chronic pain of both shoulders documented in this encounter Results * (ABNORMAL) POCT KWAME-14 Urine Drug Screen (05/29/2025 9:30 AM EDT) THC Negative Negative Cocaine Screen, Urine Negative Negative Opiate Screen, Urine Negative Negative Methamphetamine Screen Urine Negative Negative Amphetamine Screen, Urine Negative Negative Benzodiazepines Screen, Urine Negative Negative Barbiturate Screen, Urine Negative Negative Methadone Screen, Urine Negative Negative Buprenophine Screen, Urine Negative Negative TCA, Urine Positive(A) Negative MDMA Urine Negative Negative ng/mL Oxycodone Screen, Urine Positive(A) Negative Comment:RX Phencyclidine (PCP), Urine Negative Negative Propoxyphene, Urine Negative Negative Fentanyl, Urine Negative Negative Urine Urine specimen obtained by clean catch procedure / Unknown 05/29/2025 9:30 AM EDT Narrative Lacey Cloud, RN - 05/29/2025 9:30 AM EDT .UTOX cup Lot#[id number] Exp. 05/12/26 Internal Pass Control Thor Platt MD POINT OF CARE TEST EN TER/EDIT ORDERABLES Final Result documented in this encounter Visit Diagnoses Diagnosis Chronic pain of both shoulders- Primary documented in this encounter Additional Health Concerns Assessment Noted Time PHQ-9 Depression Total Score: 0 07/15/20 24 2:51 PM EST documented as of this encounter Care Teams Neuroscientist Relationship Specialty Start Date End Date Thor Alvarado MD [address] [place] [id number] PCP - General Internal Medicine 04/08/14 documented as of this encounter
--- OUTSIDE RECORDS SUMMARY | 2025-06-03 06:50 | XMS_ITS | Clinical Summary ---
Author Organization [employer] Address [address] [place] [address] Care Team Providers Care Vp Ad Sales [place] Name Role Phone Thor Alvarado MD Primary Care Provide r Allergies No known active allergies Medications * This document contains information received from the source organization and may not represent a complete record from that organization. omeprazole (PriLOSEC) [address] capsule TAKE [...] 28 days. 168 tablet 025 2024 Active naloxone (Narcan) 4 mg/0.1 mL nasal spray Administer 1 spray (4 mg) into affected nostril(s) if needed for opioid reversal. 2 each 1 Active naloxone (Narcan) 4 mg/0.1 mL nasal spray Administer 0.1 mL into affected nostril(s). 022 2024 Discontinued(R eorder (will not trigger notification to Pharmacy)) oxyCODONE (Roxicodone) 15 MG immediate release tabletIndications :Severe pain Take 1 tablet (15 mg) by mouth every 4 (four) hours if needed (pain) for up to 28 days. Do not start before April 23, 2025. 168 tablet 025 2024 Discontinued(R eorder (will not trigger notification to Pharmacy)) oxyCODONE (Roxicodone) 15 MG immediate release tabletIndications :Severe pain Take 1 tablet (15 mg) by mouth every 4 (four) hours if needed (pain) for up to 28 days. 168 tablet 025 2024 Discontinued(R eorder (will not trigger notification to Pharmacy)) Active Problems Problem Noted Date Diagnosed Date Bilateral hand pain 05/14/2025 Assessment & Plan (05/14/2025 2:26 PM EDT): Patient with c/o bilateral hand pain On exam swelling, no redness, pt is unable to make a full fist Exam suggestive of arthritis, inflammatory ? 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) reviewed by PCP 01/28 Assessment & Plan (02/10/2025 9:01 PM EDT): Timeline: -02/10/25: Initial group - utox as expected, 21 pills less than expected (Agreement & BPI completed) HFrEF (heart failure with reduced ejection fract ion) 07/15/2024 Assessment & Plan (05/14/2025 2:18 PM EDT): Under the care of [facility] cardiology, last seen 05/09/2024 They recommended to continue: Bisoprolol 10 mg po daily Dapaglifozin 10 mg po daily Entresto 49/51 mg BID F/u 6 months Assessment & Plan (07/15/2024 3:04 PM EST): Under the care of [facility] cardiology, last seen 05/09/2024 They recommended to continue: Bisoprolol 10 mg po daily Dapaglifozin 10 mg po daily Entresto 49/51 mg BID F/u 6 months Severe obesity (BMI 35.0-39.9) with comorbidity (CMS/HCC) 12/21/2022 Assessment & Plan (10/09/2024 2:27 PM [...] defibrillator 09/14/2022 Erosive esophagitis 09/14/2022 Class 2 severe obesity due t o excess calories with serious comorbidity and body mass index (BMI) of 36.0 to 36.9 in adult 09/14/2022 Assessment & Plan (05/14/2025 2:19 PM EDT): Patient has been counseled and educated about diet and exercise. Personal goal of weight loss discussedPatient has comorbidity of: hypertension, Prostate cancer Assessment & Plan (12/21/2022 1:19 PM EDT): Patient has been counseled and educated about diet and exercise. Personal goal of weight loss discussedPatient has comorbidity of: HTN ARABELLA on CPAP 09/14/2022 Assessment & Plan (05/14/2025 2:29 PM EDT): Pt has ARABELLA. Repeat sleep study 01/15/2017 showed severe ARABELLA Pt with a Hx. of cardiomyopathy s/p AICD placement. He has a Cpap machine, but last visit he told me it is not working properly Pt was referred to Sleep lab had appointment in 02/2025. Pt missed appointment Referred back today Assessment & Plan (10/09/2024 2:25 PM EST): [...] -UTOX as expected. Pill count discrepancy. See medical technical writer for further details. Assessment & Plan (10/09/2024 [...] mg po TID and Oxycodone. Seen at [facility], received steroid injections both [...] mg po TID and Oxycodone. Seen at [facility], received steroid injections both [...] 300 mg po TID. Will refer to [facility] Follow up with me [...] injury. Seen in the past by a furnace clerk, Dr. Silva, and orthopedist specialist at [facility]. Pt is not a good candidate for [...] with us. Pt saw orthopaedic specialist in [place] 11/20/2024 who stated he was not a good surgical candidate given his dependency of chronic narcotics Assessment & Plan (10/09/2024 2:38 PM EST): Patient here for a follow up He has chronic bilateral shoulder pain, described as intensity 8/10. Pain worsens with movement. Difficulty with overhead activity. Right-handed. No injury. Seen in the past by a furnace clerk, Dr. Silva, and orthopedist specialist at [facility]. Pt is not a good candidate for [...] like to see an orthopaedic specialist in [place] Assessment & Plan (01/22/2024 2:56 PM EDT): Patient here for a follow up He has chronic bilateral shoulder pain, described as intensity 8/10. Pain worsens with movement. Difficulty with overhead activity. Right-handed. No injury. Seen in the past by a furnace clerk, Dr. Silva, and orthopedist specialist at [facility]. Pt is not a good candidate for [...] contract with us. He was seen by [facility] 10/31/2023 Assessment & Plan (09/27/2023 9:16 AM EST): Patient here for a follow up He has chronic bilateral shoulder pain, described as intensity 8/10. Pain worsens with movement. Difficulty with overhead activity. Right-handed. No injury. Seen in the past by a furnace clerk, Dr. Silva, and orthopedist specialist at [facility]. Pt is not a good candidate for [...] with us. He was seen by Ortho [facility] 05/22/2023 for a steroid injection. Assessment & Plan (04/24/2023 12:54 PM EDT): Patient here for a follow up He has chronic bilateral shoulder pain, described as intensity 8/10. Pain worsens with movement. Difficulty with overhead activity. Right-handed. No injury. Seen in the past by a furnace clerk, Dr. Silva, and orthopedist specialist at [facility]. Pt is not a good candidate for [...] would like to be referred back to [facility] for a steroid injection. He has had good results with these in the past. Assessment & Plan (09/14/2022 12:24 PM EST): Patient withchronic bilateral shoulder pain intensity 8/10 Patient has a Hx of persistent severe bilateral shoulder pain L>R Pain worsens with movement. Difficulty with overhead activity. Right-handed. No injury. Seen in the past by a furnace clerk, Dr. Silva, and orthopedist, [facility], in the past. Pt is not a [...] Last visit he was referred back to [facility], pt received a steroid injection back then that lasted in relief for about 3 months, He received another injection with better results Hyperlipidemia 02/02/2015 Assessment & Plan (05/14/2025 2:16 PM EDT): Patient with elevated lipids. Most recent lipid profile from: Lab Results Component Value Date TRIG 66 03/09/2025 TRIG 81 09/15/2022 CHOL 151 03/09/2025 LDLCHOLCAL 93 03/09/2025 HDL 45 03/09/2025 Currently on a regimen of: Crestor 40 mg po at bedtime . Plan: continue crestor Pt advised to try to adhere to a low cholesterol diet, counseled and educated about diet and exercise, Patient encouraged to come up with a personal goal for weight loss. 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 Pt is under the care of Dr. bruce Brush Pt finished Chemotherapy with Docetaxel, received Lupron 22.5 mg every 3 months , and Prednisone Abiraterone was discontinued CT showed an enlarging adrenal nopdule suspicious for metastasic disease. Patient underwent a Biopsy. Pathology report showed: immunohostochemical studies supportive of metastasic prostatic adenocarcinoma. He completed 8 cycles of Cabazitaxel chemotherapy Last seen by Urology 12/12/2024 Assessment & Plan (02/12/2025 2:04 PM EDT): [...] this month Hypertension 10/20/2013 Assessment & Plan (05/14/2025 2:15 PM EDT): Pt is here for a follow up BP today controlled He is on a regimen of: Entresto 49.51 mg BID, Spironolactone 25 mg po daily, Carvedilol 6.25 mg po BID and Isosorbide 30 mg po daily. Most recent electrolytes, Bun and Creatinine done on: Lab Results Component Value Date NA 138 04/09/2025 NA 143 03/09/2025 K 4.1 04/09/2025 K 4.3 03/09/2025 CL 103 04/09/2025 CL 107 03/09/2025 BUN 15 04/09/2025 BUN 13 03/09/2025 CREATININE 0.84 04/09/2025 CREATININE 0.99 03/09/2025 were within normal limits patient advised to adhere to a low sodium diet, encouraged about medication compliance, counseled about weight loss. Assessment & Plan (02/12/2025 2:04 PM EDT): [...] Lumbago 02/15/2012 Anemia 01/17/2012 Assessment & Plan (05/14/2025 2:20 PM EDT): Lab Results Component Value Date WBC 6.5 08/19/2020 HGB 12.6 (L) 08/19/2020 Pt admitted to [facility] 11/24/2019 after Oncologist performed routine labs and [...] of chronic persistent anemia, evaluated by a Exchange Specialist at [facility] on 10/04/2011. They apparently repeated his stool [...] that showed evidence of diffuse esophageal spasm Repeat CBC Assessment & Plan (09/14/2022 1:11 PM EST): Pt admitted to [facility] 11/24/2019 after Oncologist performed routine labs and [...] of chronic persistent anemia, evaluated by a Exchange Specialist at [facility] on 10/04/2011. They apparently repeated his stool [...] to AICD. Pt was seen by Dr Heatr GI back then and underwent an EGD that showed evidence of diffuse esophageal spasm Dilated cardiomyopathy (CMS/HCC) 01/17/2012 Assessment & Plan (05/14/2025 2:18 PM EDT): Pt here for a f/u He has a Cardiomyopathy s/p AICD placement. Previous MUGA demonstrated improved LV function to 37%. Cardiac cath 05/29/2013 showed NL coronaries. He remains compensated NYHA Class II He is on Asa 81mg po daily, Simvastatin 80mg po qhs, Entresto 49.51, Carvedilol 6.25 mg po BID. and Spironolactone 25 mg po daily Last MIBI scan 11/14/2012 showed some conflicting results Assessment & Plan (07/15/2024 2:52 PM EST): [...] 01/17/2012 Depressive disorder 08/06/1958 Assessment & Plan (05/14/2025 2:21 PM EDT): Doing well No SI Currently taking amitriptyline 100 mg qhs. Assessment & Plan (09/14/2022 1:09 PM EST): [...] Encounters Date Type Department Care Team Description 05/29/2025 9:30 AM EDT Clinical Support [facility] [address] [place] [phone] Lacey Cloud RN Chronic pain of both shoulders (Primary Dx) 05/29/2025 Refill [facility] [address] [place] [address] Lacey Cloud RN 05/29/2025 Travel 05/20/2025 Refill [facility] [address] [place] [address] Thor Alvarado MD Severe pain 05/14/2025 2:00 PM EDT Office Visit [facility] [address] [place] [address] Thor Alvarado MD 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); Primary hypertension; Mixed hyperlipidemia; Dilated cardiomyopathy (CMS/HCC) (HCC); HFrEF (heart failure with reduced ejection fraction) (HCC); Class 2 severe obesity due to excess calories with serious comorbidity and body mass index (BMI) of 36.0 to 36.9 in adult; Anemia, unspecified type; Depressive disorder; ARABELLA on CPAP; Bilateral hand pain; Encounter for immunization 05/14/2025 Travel 05/13/2025 Telephone [facility] [address] [place] [address] Thor Alvarado MD chart prep 05/13/2025 Telephone [facility] [address] [place] [address] Thor Alvarado MD chartprep; Error (VOID this visit) 04/21/2025 Refill [facility] [address] [place] [address] Thor Alvarado MD Severe pain 03/25/2025 Travel 03/25/2025 Refill [facility] [address] [place] [address] Lacey Cloud RN Severe pain 03/25/2025 Telephone [facility] [address] [place] [address] Thor Alvarado MD Med Refill 03/16/2025 Telephone [facility] [address] [place] [address] Lacey Cloud, [facility] pain group visit 03/13/2025 Telephone [facility] [place] [address] Thor Alvarado MD Appointment Request 03/12/2025 9:30 AM EDT Office Visit [facility] [address] [place] [address] Janett Herrera MD Chronic pain of both shoulders (Primary Dx) 03/12/2025 Travel 03/11/2025 Refill [facility] [address] [place] [address] Thor Alvarado MD Chronic pain syndrome 03/10/2025 1:15 PM EDT Office Visit [facility] [address] [place] [address] Denice Coepland MD Arthrosis of right shoulder region (Primary Dx); Chronic pain syndrome 03/10/2025 Travel 03/09/2025 9:00 AM EDT Office Visit [facility] [address] [place] [address] Janett Herrera MD Chronic pain of both shoulders (Primary Dx) 03/09/2025 Travel 03/05/2025 9:45 AM EDT Office Visit [facility] [address] [place] [address] Janett Herrera MD Chronic pain of both shoulders (Primary Dx) 03/05/2025 Travel 03/03/2025 1:15 PM EDT Office Visit [facility] [address] [place] [address] Denice Copeland MD Arthrosis of right shoulder region (Primary Dx) 03/03/2025 Travel from Last 3 Months Immunizations Immunization Administration Dates Next Due Influenza High-dose Quadriva lent Preservative Free 05/24/2022,05/11/2020 Influenza Whole 05/14/2012,06/15/2009 Influenza injectable quadriv alent IIV4 with preservative 05/04/2016,05/11/2015 Influenza, High Dose Seasona l, Preservative Free 05/14/2025 Influenza, IIV3, injectable 08/27/2014, 1 Influenza, Split (incl. tin fied surface antigen) 04/14/2013 Moderna Covid-19 Vaccine 12+ 10/21/2020,09/23/19 21 Pfizer Covid-19 Vaccine 12+ 08/08/2021 Pfizer Covid-19 Vaccine 12+ Bivalent 10/09/2022 Pneumococcal Conjugate PCV 13 12/28/2021, 016 Pneumococcal Polysaccharide PPSV23 05/24,08/27/2014,10/20/2013,07/19 TD (adult), 2 Lf tetanus tox oid, preservative free, adsorbed 03/25/2004 Tdap 05/14/2025,10/20/2013 Zoster, live 05/11/2015 Social History Tobacco Use [...] Sign Reading Time Taken Comments Blood Pressure 118/60 05/14/2025 2:03 PM EDT Pulse 75 05/14/2025 2:03 PM EDT Temperature 36.8 C (98.2 F) 05/14/2025 2:03 PM EDT Respiratory Rate 20 05/14/2025 2:03 PM EDT Oxygen Saturation 96% 02/12/2025 1:55 PM EDT Inhaled Oxygen Concentration - - Weight 109 kg (240 lb 9.6 oz) 05/14/2025 2:03 PM EDT Height 172.7 cm (5' 8 ) 05/14/2025 2:03 PM EDT Body Mass Index 36.58 05/14/2025 2:03 PM EDT Plan of Treatment Upcoming Encounters Date Type Department Care Team (Late st Contact Info) Description 07/17/2025 1:00 PM EST Office Visit [facility] [address] [place] [address] Latia Barry, OD [address] [place] [address] 09/04/2025 11:30 AM EST Clinical Support [facility] [address] [place] [address] Lacey Cloud, RN [address] [place], [place] [phone] Health Maintenance Due Date Last Done Comments Derm Melanoma Skin Check 1945 Hepatitis C Screening 01/10/1964 Zoster Vaccines (2 of 3) 07/06/2015 05/11/2015 RSV Patients and Patients Aged 60 years or older (1 - 1-dose 75+ series) 2021 COVID-19 Vaccine ( season) 2025 10/09/2022, 08/08/2021, 10/21/2020, Additional history exists Alcohol/Substance Use Screening 07/15/2025 07/15/2024 Depression Screening 07/15/2025 07/15/2024, 07/15/20 24 SDOH Screening 10/09/2025 10/09/2024 Tobacco Screening 03/03/2026 03/03/2025 Lipid Panel 03/09/2030 03/09/2025, 02, 03/17/2021 DTaP/Tdap/Td Vaccines (3 - Td or Tdap) 05/14/2035 05/14/2025, 10/20/2013, 03/25/2004 Pneumococcal Vaccine: 50+ Years Completed 05/24/2022, 12/28/2021, 08/10/2015, Additional history exists Influenza Vaccine Completed 05/14/2025, , 05/11/2020, Additional history exists HIB Vaccines Aged Out [...] AM EDT Chronic pain of both shoulders XR HAND 3+ VIEWS BILATERAL Routine 05/14/2025 3:45 PM EDT PAULA SCREEN, IFA, W/REFL TITER AND PATTERN Routine 05/14/2025 2:54 PM EDT Bilateral hand pain RHEUMATOID FACTOR Routine 05/14/2025 2:5 4 PM EDT Bilateral hand pain C-REACTIVE PROTEIN Routine 05/14/2025 2: 54 PM EDT Bilateral hand pain CBC WITH AUTO DIFFERENTIAL Routine 05/14/2025 2:54 PM EDT Anemia, unspecified type BASIC METABOLIC PANEL Routine 04/09/2025 1:08 PM EDT Primary hypertension LIPID PANEL, STANDARD Routine 03/09/2025 8:33 AM EDT Mixed hyperlipidemia BASIC METABOLIC PANEL Routine 03/09/2025 8:33 AM EDT Primary hypertension from Last 3 Months Results * (ABNORMAL) POCT [id number]-14 Urine Drug [...] Unknown 05/29/2025 9:30 AM EDT Narrative Lacey Cloud RN - 05/29/2025 9:30 AM EDT .UTOX cup Lot#[id number] Exp. 05/12/26 Internal Pass Control Thor Platt MD POINT OF CARE TEST EN TER/EDIT ORDERABLES Final Result * XR Hand 3+Views Bilateral (05/14/2025 3:45 PM EDT) Anatomical Region Laterality Modality Upper Extremities, Hand Bilateral Radiogra phic Imaging 05/14/2025 3:45 PM EDT Narrative 05/14/2025 4:40 PM EDT [place] [id number] XRay Report Signed Patient: Merlin Guerra MR#: [id number] 4 : 1945 Acct:[id number] Age/Sex: 80 / M ADM Date: 05/14/25 [facility] Attending Dr: Thor Ontiveros MD Ordering Physician: Thor Ontiveros MD Date of Service: 05/14/25 Procedure(s): XR Hand Bilat min 3v Accession Number(s): [id number] cc: Thor Ontiveros MD Reason for Exam: bilateral hand pain EXAMINATION: X-ray bilateral hands CLINICAL INFORMATION: Pain COMPARISON: None TECHNIQUE: Bilateral hands 3 views FINDINGS: Right hand: Osseous mineralization appears slightly decreased. No acute fracture, dislocation or suspicious osseous lesion.. Multifocal joint space narrowing. More prominent findings include mild-moderate radiocarpal joint space narrowing, mild triscaphe and first CMC joint space narrowing. Mild joint space narrowing and some of the interphalangeal joints of the fingers. No erosions. No abnormal soft tissue calcification. Left hand: Osseous mineralization appears slightly decreased. No acute fracture, dislocation or suspicious osseous lesion. Multifocal joint space narrowing. More prominent findings include severe first CMC mild radiocarpal joint space narrowing. Mild narrowing of some of the interphalangeal joints. No erosions. No abnormal soft tissue calcification. 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 Electronically signed by: Cody Cruz MD 05/14/2025 04:37 PM EDT Dictated By: Cody Cruz MD Signed By: <Electronically signed by Cody Cruz MD in OV> 05/14/25 1637 DD/ 1545 TD/TT: 05/14/25 1600 Maintenance Foreman: RAMIN Procedure Note Donotuseinterpreter, Image - 05/14/2025 [place] [id number] XRay Report Signed Patient: Fariha Guerra#: [id number] 4 : 6Acct:[id number] Age/Sex: 80 / MADM Date: 05/14/25 Loc: [facility] Attending Dr: Thor Ontiveros MD Ordering Physician: Thor Ontiveros MD Date of Service: 05/14/25 Procedure(s): XR Hand Bilat min 3v Accession Number(s): [id number] cc: hTor Ontiveros MD Reason for Exam: bilateral hand pain EXAMINATION: X-ray bilateral hands CLINICAL INFORMATION: Pain COMPARISON: None TECHNIQUE: Bilateral hands 3 views FINDINGS: Right hand: Osseous mineralization appears slightly decreased. No acute fracture, dislocation or suspicious osseous lesion.. Multifocal joint space narrowing. More prominent findings include mild-moderate radiocarpal joint space narrowing, mild triscaphe and first CMC joint space narrowing. Mild joint space narrowing and some of the interphalangeal joints of the fingers. No erosions. No abnormal soft tissue calcification. Left hand: Osseous mineralization appears slightly decreased. No acute fracture, dislocation or suspicious osseous lesion. Multifocal joint space narrowing. More prominent findings include severe first CMC mild radiocarpal joint space narrowing. Mild narrowing of some of the interphalangeal joints. No erosions. No abnormal soft tissue calcification. 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 Electronically signed by: Cody Cruz MD 05/14/2025 04:37 PM EDT RP Dictated By: Cody Cruz MD Signed By: <Electronically signed by Cody Cruz MD in OV> 05/14/25 1637 DD/ 1545 TD/TT: 05/14/25 1600 Maintenance Foreman: HB us Thor Platt MD IMG XR PROCEDURES Fin al Result * (ABNORMAL) CBC auto differential (05/14/2025 2:54 PM EDT) White Blood Count 6.8 4.8 - 10.8 X10*3/uL [facility] Red Blood Count 4.24(L) 4.60 - 5.80 X10*6/uL [facility] Hemoglobin 13.0(L) 14.0 - 18.0 g/dl [facility] Hematocrit 40.3(L) 42.0 - 52.0 % [facility] Mean Corpuscular Volume 95.0 80.0 - 98.0 fL [facility] Mean Corpuscular Hemoglobin 30.7 27.0 - 33.0 pg [facility] Mean Corpuscular HGB Conc 32.3 31.0 - 36.0 g/dl [facility] Red Cell Distribution Width 13.3 11.0 - 16.0 % [facility] Platelet Count 188 160 - 400 X10*3/uL [facility] Mean Platelet Volume 8.8(L) 9.4 - 12.4 fL [facility] Neutrophils Percent Auto 71.0 45 - 73 % [facility] Imm Gran Pct Auto 0.3 0.0 - 0.4 % [facility] Lymphocytes Percent Auto 20.8 20 - 40 % [facility] Monocytes Percent Auto 6.8 2 - 11 % [facility] Eosinophils Percent Auto 0.7 0 - 4 % [facility] Basophils Percent Auto 0.4 0 - 2 % [facility] NRBC Pct Auto 0.0 0.0 - 0.2 /100WBC [facility] Neutrophils Absolute Auto 4.8 2.0 - 8.3 x10*3/uL [facility] Imm Gran Abs Auto 0.02 0.00 - 0.03 X10*3/uL [facility] Lymphocytes Absolute Auto 1.4 1.2 - 4.9 X10*3/uL [facility] Monocytes Absolute Auto 0.5 0.1 - 1.2 X10*3/uL [facility] Eosinophils Absolute Auto 0.1 0.0 - 0.4 X10*3/uL [facility] Basophils Absolute Auto 0.0 0.0 - 0.2 X10*3/uL [facility] NRBC Abs Auto 0.000 0.0 - 0.012 X10*3/uL [facility] Blood Venous blood specimen / Unknown 05/14/2025 2:54 PM EDT 05/14/2025 4:14 PM EDT us Thor Platt MD LAB BLOOD ORDERABLES Final Result [facility] [address] [place] [phone] * Rheumatoid Factor (05/14/2025 2:54 PM EDT) Rheumatoid Factor <13.0 <15.0 IU/mL [facility] Blood Venous blood specimen / Unknown 05/14/2025 2:54 PM EDT 05/14/2025 5:44 PM EDT Thor Platt MD LAB BLOOD ORDERABLES Final Result Performing Organization Address City/[facility]/ZIP Co de Phone Number [facility] [address] [place] [phone] * (ABNORMAL) C-reactive Protein (05/14/2025 2:54 PM EDT) Pathologist [facility] C Reactive Protein 0.60(H) < or = 0.50 mg/dL [facility] Blood Venous blood specimen / Unknown 05/14/2025 2:54 PM EDT 05/14/2025 4:14 PM EDT Thor Platt MD LAB BLOOD ORDERABLES Final Result Performing Organization Address [facility] Co de Phone Number [facility] [address] [place] [phone] * PAULA Screen,IFA, with Reflex to Titer and Pattern (05/14/2025 2:54 PM EDT) Pathologist [facility] Anti Nuclear Antibody Screen NEGATIVE NEGATIVE [facility] Comment:PAULA IFA is a first l ine screen for detecting thepresence of up to approximately 150 autoantibodies invarious autoimmune diseases. A negative PAULA IFA resultsuggests an PAULA-associated autoimmune disease is notpresent at this time, but is not definitive. If thereis high clinical suspicion for Sjogren's syndrome,testing for anti-SS-A/Ro antibody should be considered.Anti-Estee-1 antibody should be considered for clinicallysuspected inflammatory myopathies.AC-0: NegativeInternational Consensus on PAULA Patterns(https://doi.org/10.1515/lnkk-5787-1192)For additional information, please refer tohttp://education.[employer]faq/DIN491(This link is being provided for informational/educational purposes only.)THIS TEST WAS PERFORMED AT:[facility] [place] [phone] KEMP MD Blood Venous blood specimen / Unknown 05/14/2025 2:54 PM EDT 05/14/2025 5:44 PM EDT Thor Platt MD LAB BLOOD ORDERABLES Final Result Performing Organization Address City/[facility]/ZIP Co de Phone Number [facility] [address] [place] [address] [phone] * Basic Metabolic Panel (04/09/2025 1:08 PM EDT) Only the most recent of2 resultswithin the time period is included. Sodium 138 135 - 145 mmol/L [facility] Potassium 4.1 3.3 - 5.1 mmol/L [facility] Chloride 103 96 - 108 mmol/L [facility] Carbon Dioxide 27 22 - 29 mmol/L [facility] Anion Gap 12 12 - 20 [facility] Urea Nitrogen (BUN) 15 9 - 16 mg/dL [facility] Creatinine, Serum 0.84 0.5 - 1.4 mg/dL [facility] Estimated Glomerular Filt Rate >60 [facility] Comment:Chronic Kidney Disea se: Estimated GFR < 60 mL/min/1.08q0Cudtfw Kidney Disease: Estimated GFR < 15 mL/min/1.73m2 Glucose 105 60 - 115 mg/dL [facility] Calcium 9.1 8.4 - 10.2 mg/dL [facility] Blood Venous blood specimen / Unknown 04/09/2025 1:08 PM EDT 04/09/2025 4:03 PM EDT Thor Platt MD LAB BLOOD ORDERABLES Final Result Performing Organization Address City/[facility]/ZIP Co de Phone Number [facility] [address] [place] [address] [phone] * Lipid Panel, Standard (03/09/2025 8:33 AM EDT) Triglycerides 66 <150 mg/dL [facility] Comment:Desirable Triglyceri de: less than 150 mg/dLBorderline High Triglyceride 150-199 mg/dLHigh Triglyceride: 200-499 mg/dLVery High Triglyceride: greater than or equal to 5OO mg/dL Cholesterol 151 <200 mg/dL [facility] Comment:Desirable Cholestero l: less than 200 mg/dLBorderline High Cholesterol: 200-239 mg/dLHigh Cholesterol: greater than 239 mg/dL LDL Cholesterol Calculated 93 <100 mg/dL [facility] Comment:Desirable LDL: less than 100 mg/dLNear Optimal/Above Optimal LDL: 110- 129 mg/dLBorderline High LDL: 130-159 mg/dLHigh LDL: 160-189 mg/dLVery High LDL: greater than or equal to 190 mg/dL HDL Cholesterol 45 >40 mg/dL [facility] Comment:Desirable HDL: great er than 40 mg/dL Note: This HDL assay may give artificially low results in patients with liver disease. Blood Venous blood specimen / Unknown 03/09/2025 8:33 AM EDT 03/09/2025 11:22 AM EDT us Thor Platt MD LAB BLOOD ORDERABLES Final Result [facility] [address] [place] [address] [phone] from Last 3 Months Insurance [facility] INTERMEDIATE OPTIONS (HMO D-SNP) [place] [id number] Care Teams Vp Ad Sales West Relationship Specialty Start Date End Date Thor Alvarado MD [address] [place] [address] PCP - General Internal Medicine 04/08/14
--- OUTSIDE RECORDS SUMMARY | 2025-06-03 06:50 | XMS_ITS | Encounter Summary ---
Author Organization [employer] Address 75 [facility] 7t [place] [address] Care Team Providers Care Paid Search Marketing Analyst Name Role Phone Thor Alvarado MD Primary Care Provide r Reason for Visit * Reason Onset Date Comments Med Refill 11/07/2023 Encounter Details Date Type Department Care Team (Late st Contact Info) Description 11/07/2023 Refill [facility] MEDICINE [address] [place], [place] [phone] Thor Alvarado MD [address] [place], [place] [phone] Severe pain Social History Tobacco Use Types [...] t he electric, gas, oil or water [employer] threatened to shut off services in your [...] out of med To be sent to: [facility] #[id number] [place], [place] - [address] [place] [address] AT [facility] documented in this encounter Plan of Treatment Upcoming Encounters Date Type Department Care Team (Late st Contact Info) Description 07/17/2025 1:00 PM EST Office Visit [facility] OPTOMETRY [address] [place] [address] Latia Barry, OD [address] [place] [address] 09/04/2025 11:30 AM EST Clinical Support [facility] MEDIC[facility] [address] [place] [address] Lacey Cloud, ROMERO [address] [place] [address] documented as of this encounter Visit Diagnoses Diagnosis Severe pain documented in this encounter Additional Health Concerns Assessment Noted Time PHQ-9 Depression Total Score: 6 12/22/19 23 1:08 PM EDT documented as of this encounter Care Teams Paid Search Marketing Analyst Relationship Specialty Start Date End Date Thor Alvarado MD [address] [place] [address] PCP - General Internal Medicine 04/08/14 documented as of this encounter
--- OUTSIDE RECORDS SUMMARY | 2025-06-03 06:50 | XMS_ITS | Encounter Summary ---
Author Organization [employer] Address 75 [facility] 7t [place] [address] Care Team Providers Care Meter Mechanic Name Role Phone Thor Alvarado MD Primary Care Provide r Reason for Visit * Reason Onset Date Comments Med Refill 05/29/2025 Encounter Details Date Type Department Care Team (Late st Contact Info) Description 05/29/2025 Refill [facility] & PEDS [address] [place] [address] Lacey Cloud, ROMERO [address] [place] [address] Social History Tobacco Use Types Packs/Day Years [...] Description 07/17/2025 1:00 PM EST Office Visit [facility] OPTOMETRY [address] [place] [address] Latia Barry, OD [address] [place] [address] 09/04/2025 11:30 AM EST Clinical Support [facility] MEDICINE 230 [place] [address] Lacey Cloud, ROMERO [address] [place] [address] documented as of this encounter Visit Diagnoses Not on filedocumented in this encounter Additional Health Concerns Assessment Noted Time PHQ-9 Depression Total Score: 0 07/15/20 24 2:51 PM EST documented as of this encounter Care Teams Meter Mechanic Relationship Specialty Start Date End Date Thor Alvarado MD 230 [place] [address] PCP - General Internal Medicine 04/08/14 documented as of this encounter
--- OUTSIDE RECORDS SUMMARY | 2025-06-03 06:50 | XMS_ITS | Encounter Summary ---
Author Organization [employer] Address 75 [facility] 7t [place] [address] Care Team Providers Care Knitting Machine Fixer Name Role Phone Thor Alvarado MD Primary Care Provide r Reason for Visit * Reason Onset Date Comments Med Refill 06/23/2024 Encounter Details Date Type Department Care Team ([facility] st Contact Info) Description 06/23/2024 Telephone [facility] MEDICINE [address] [place] [address] Thor Alvarado MD [address] [place], [place] [phone] Med Refill Social History Tobacco Use Types [...] t he electric, gas, oil or water [employer] threatened to shut off services in your [...] immediate release tablet To be sent to: [facility] #[id number] [place], [place] - [address] [facility] documented in this encounter Plan of Treatment Upcoming Encounters Date Type Department Care Team (Late st Contact Info) Description 07/17/2025 1:00 PM EST Office Visit [facility] OPTOMETRY [address] [place] [address] Latia Barry OD [address] [place] [address] 09/04/2025 11:30 AM EST Clinical Support [facility] [address] [place] [address] Lacey Cloud RN [address] [place] [address] documented as of this encounter Visit Diagnoses Not on filedocumented in this encounter Additional Health Concerns Assessment Noted Time PHQ-9 Depression Total Score: 6 12/22/19 23 1:08 PM EDT documented as of this encounter Care Teams Knitting Machine Fixer Relationship Specialty Start Date End Date Thor Alvarado MD [address] [place] [address] PCP - General Internal Medicine 04/08/14 documented as of this encounter
--- OUTSIDE RECORDS SUMMARY | 2025-06-03 06:50 | XMS_ITS | Patient Health Record ---
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 Problem Esophageal reflux (781978960) Esophageal reflux (530.81) Active confirmed Plan Of Treatment Future Test Test Name Order Date UPPER GI ENDOSCOPY 12/08/2011 COLONOSCOPY 12/08/2011 Insurance Providers Payer Name Payer Address Payer Phone Subscriber Number Group Number Insured Name Patient Relationship to Insured Coverage Start Date Coverage End Date MEDICARE OF [place] [address] [place] [id number] [id number] CARRIE BECKWITH Self - patient is the insured MEDICAID OF [facility] [address] [place] [phone] [id number] CARRIE BECKWITH Self - patient is the insured Medical (General) History Medical History History ICD Code Had negative colonoscopy in 2004 Had negative EGD in 2004 and 2006 except for a hiatal hernia Denies OR,DM,CVA,Lung disease,renal dise ase HTN Hyperlipidemia GERD Has a defibrillator Sleep apnea-not using CPAP machine curre ntly Anemia Surgical History Surgery Date(Month/Year) Defibrillator Hernia
--- OUTSIDE RECORDS SUMMARY | 2025-06-03 06:50 | XMS_ITS | Encounter Summary ---
Author Organization [employer] Address 75 [facility] 7t [place] [address] Care Team Providers Care Derrick Boat Runner Name Role Phone Thor Alvarado MD Primary Care Provide r Reason for Visit * Reason Comments Med Refill Encounter Details Date Type Department Care Team (Late st Contact Info) Description 03/28/2023 Refill [facility] MEDICINE [address] [place] [address] Thor Alvarado MD 230 [place], [place] [phone] Social History Tobacco Use Types Packs/Day Years [...] Description 07/17/2025 1:00 PM EST Office Visit [facility] OPTOMETRY [address] [place], [place] [phone] Latia Barry, OD [address] [place] [address] 09/04/2025 11:30 AM EST Clinical Support [facility] MEDICINE [address] [place] [address] Lacey Cloud, ROMERO 505 [place] [address] documented as of this encounter Visit Diagnoses Not on filedocumented in this encounter Additional Health Concerns Assessment Noted Time PHQ-9 Depression Total Score: 6 12/22/19 23 1:08 PM EDT documented as of this encounter Care Teams Derrick Boat Runner Relationship Specialty Start Date End Date Thor Alvarado MD [address] [place] [address] PCP - General Internal Medicine 04/08/14 documented as of this encounter
--- OUTSIDE RECORDS SUMMARY | 2025-06-03 06:50 | XMS_ITS | Encounter Summary ---
Author Organization [employer] Address 75 [facility] 7t [place] [address] Care Team Providers Care Coil Taper Name Role Phone Thor Alvarado MD Primary Care Provide r Reason for Visit * Reason Onset Date Comments Med Refill 03/25/2025 Encounter Details Date Type Department Care Team ([facility] st Contact Info) Description 03/25/2025 Telephone [facility] MEDICINE [address] [place] [address] Thor Alvarado MD 230 [place], [place] [phone] Med Refill Social History Tobacco Use Types [...] immediate release tablet To be sent to: [facility] #[id number] [place], [place] - [address] [place] [address] AT [facility] documented in this encounter Plan of Treatment Upcoming Encounters Date Type Department Care Team ([facility] st Contact Info) Description 07/17/2025 1:00 PM EST Office Visit [facility] OPTOMETRY [address] [place] [address] Latia Barry, OD [address] [place] [address] 09/04/2025 11:30 AM EST Clinical Support [facility] MED[facility]INE [address] [place] [address] Lacey Cloud RN 505 [place] [address] documented as of this encounter Visit Diagnoses Not on filedocumented in this encounter Additional Health Concerns Assessment Noted Time PHQ-9 Depression Total Score: 0 07/15/20 24 2:51 PM EST documented as of this encounter Care Teams Coil Taper Relationship Specialty Start Date End Date Thor Alvarado MD [address] [place] [address] PCP - General Internal Medicine 04/08/14 documented as of this encounter
--- OUTSIDE RECORDS SUMMARY | 2025-06-03 06:50 | XMS_ITS | Encounter Summary ---
Author Organization [employer] Address 75 [facility] 7t [place] [address] Care Team Providers Care Watermaster Name Role Phone Thor Alvarado MD Primary Care Provide r Reason for Visit * Reason Onset Date Comments Appointment Request 03/13/2025 Encounter Details Date Type Department Care Team ([facility] st Contact Info) Description 03/13/2025 Telephone [facility] MEDICINE [address] [place], [place] [phone] Thor Alvarado MD 230 [place], [place] [phone] Appointment Request Social History Tobacco Use Types [...] a family emergency and is flying to [place] today. Contact pt at [phone] (romanian) documented in this encounter Plan of Treatment Upcoming Encounters Date Type Department Care Team (Late st Contact Info) Description 07/17/2025 1:00 PM EST Office Visit [facility] OPTOMETRY [address] [place] [address] Latia Barry, OD [address] [place] [address] 09/04/2025 11:30 AM EST Clinical Support [facility] MEDICINE 230 [place] [address] Lacey Colud RN 505 [place] [address] documented as of this encounter Visit Diagnoses Not on filedocumented in this encounter Additional Health Concerns Assessment Noted Time PHQ-9 Depression Total Score: 0 07/15/20 24 2:51 PM EST documented as of this encounter Care Teams Watermaster Relationship Specialty Start Date End Date Thor Alvarado MD 230 [place] [address] PCP - General Internal Medicine 04/08/14 documented as of this encounter
--- OUTSIDE RECORDS SUMMARY | 2025-06-03 06:50 | XMS_ITS | Encounter Summary ---
Author Organization [employer] Address [address] [facility] [address] 7t [place] [address] Care Team Providers Care Brine Plant Operator Name Role Phone Thor Alvarado MD Primary Care Provide r Encounter Details Date Type Department Care Team (Latest Contact Info) Description 05/29/2025 Travel Social History Tobacco Use Types Packs/Day Years Used Date Smoking Tobacco: Former Cigarettes Q uit: 08/06/2006 Passive Smoke Exposure: Past Smokeless Tobacco: Never Depression Answer Date Recorded Patient Health Questionnaire-9 Score 0 07/15/2024 Patient Health Questionnaire-9 Score 0 07/15/2024 Last PHQ-9: Questionnaire Data Not on file 1 09/15/2023 Housing Stability Answer Date Recorded What is your housing situation today? I have [employer]bb[employer] [place]es 10/09/[address] you [...] Description 07/17/2025 1:00 PM EST Office Visit [facility] OPTOMETRY [address] [place] [address] TarLatia mccloud, OD [address] [place] [address] 09/04/2025 11:30 AM EST Clinical Support [facility] MEDICINE 230 [place] [address] Lacey Cloud, ROMERO [address] [place] [address] documented as of this encounter Visit Diagnoses Not on filedocumented in this encounter Additional Health Concerns Assessment Noted Time PHQ-9 Depression Total Score: 0 07/15/20 24 2:51 PM EST documented as of this encounter Care Teams Brine Plant Operator Relationship Specialty Start Date End Date Thor Alvarado MD 230 [place] [address] PCP - General Internal Medicine 04/08/14 documented as of this encounter
--- OUTSIDE RECORDS SUMMARY | 2025-06-03 06:50 | XMS_ITS | Encounter Summary ---
Author Organization [employer] Address 75 [facility] 7t [place] [address] Care Team Providers Care Printer Floor Covering Assistant Name Role Phone Thor Alvarado MD Primary Care Provide r Reason for Visit * Reason Comments Med Refill Encounter Details Date Type Department Care Team ([facility] st Contact Info) Description 11/16/2023 Refill [facility] MED & PEDS [address] [place], [place] [phone] Thor Alvarado MD [address] [place], [place] [phone] Social History Tobacco Use Types Packs/Day Years [...] Description 07/17/2025 1:00 PM EST Office Visit [facility] OPTOMETRY [address] [place] [address] Latia Barry, OD 267 [place] [address] 09/04/2025 11:30 AM EST Clinical Support [facility] MEDICINE 230 [place] [address] Lacey Cloud RN 505 [place] [address] documented as of this encounter Visit Diagnoses Not on filedocumented in this encounter Additional Health Concerns Assessment Noted Time PHQ-9 Depression Total Score: 6 12/22/19 23 1:08 PM EDT documented as of this encounter Care Teams Printer Floor Covering Assistant Relationship Specialty Start Date End Date Thor Alvarado MD 230 [place] [address] PCP - General Internal Medicine 04/08/14 documented as of this encounter
--- OUTSIDE RECORDS SUMMARY | 2025-06-03 06:50 | XMS_ITS | Encounter Summary ---
Author Organization [employer] Address 75 [facility] 7t [place] [address] Care Team Providers Care Diamond Die Polisher Name Role Phone Thor Alvarado MD Primary Care Provide r Reason for Visit * Reason Onset Date Comments Med Refill 11/17/2024 Encounter Details Date Type Department Care Team ([facility] st Contact Info) Description 11/17/2024 Telephone [facility] MEDICINE 230 [place] [address] Thor Alvarado MD [address] [place], [place] [phone] Med Refill Social History Tobacco Use Types [...] immediate release tablet To be sent to: [facility][id number] [place], [place] - [address] [facility] documented in this encounter Plan of Treatment Upcoming Encounters Date Type Department Care Team ([facility] st Contact Info) Description 07/17/2025 1:00 PM EST Office Visit [facility] OPTOMETRY [address] [place] [address] Latia Barry OD [address] [place] [address] 09/04/2025 11:30 AM EST Clinical Support [facility] MEDICINE [address] [place] [address] Lacey Cloud RN 505 [place] [address] documented as of this encounter Visit Diagnoses Not on filedocumented in this encounter Additional Health Concerns Assessment Noted Time PHQ-9 Depression Total Score: 0 07/15/20 24 2:51 PM EST documented as of this encounter Care Teams Diamond Die Polisher Relationship Specialty Start Date End Date Thor Alvarado MD [address] [place] [address] PCP - General Internal Medicine 04/08/14 documented as of this encounter
--- OUTSIDE RECORDS SUMMARY | 2025-06-03 06:50 | XMS_ITS | Encounter Summary ---
Author Organization [facility] Address 75 [facility] 7t [place] [address] Care Team Providers Care Drive Man Name Role Phone Thor Alvarado MD Primary Care Provide r Reason for Visit * Reason Onset Date Comments Med Refill 01/28/2025 Encounter Details Date Type Department Care Team ([facility] st Contact Info) Description 01/28/2025 Telephone [facility] MEDICINE [address] [place] [address] Thor Alvarado MD 230 [place], [place] [phone] Med Refill Social History Tobacco Use Types [...] immediate release tablet To be sent to: [facility] [address] [address] documented in this encounter Plan of Treatment Upcoming Encounters Date Type Department Care Team (Late st Contact Info) Description 07/17/2025 1:00 PM EST Office Visit [facility] OPTOMETRY [address] [place] [address] Latia Barry OD [address] [place] [address] 09/04/2025 11:30 AM EST Clinical Support [facility] MEDICINE 230 [place] [address] Lacey Cloud RN [address] [place] [address] documented as of this encounter Visit Diagnoses Not on filedocumented in this encounter Additional Health Concerns Assessment Noted Time PHQ-9 Depression Total Score: 0 07/15/20 24 2:51 PM EST documented as of this encounter Care Teams Drive Man Relationship Specialty Start Date End Date Thor Alvarado MD 230 [place] [address] PCP - General Internal Medicine 04/08/14 documented as of this encounter
--- OUTSIDE RECORDS SUMMARY | 2025-06-03 06:50 | XMS_ITS | Encounter Summary ---
Author Organization [employer] Address 75 [facility] 7t [place] [address] Care Team Providers Care Communications Maintainer Name Role Phone Thor Alvarado MD Primary Care Provide r Reason for Visit * Reason Onset Date Comments Med Refill 05/17/2023 Encounter Details Date Type Department Care Team ([facility] st Contact Info) Description 05/17/2023 Telephone [facility] MEDICINE [address] [place] [address] Thor Alvarado MD 230 [place], [place] [phone] Med Refill Social History Tobacco Use Types [...] t he electric, gas, oil or water [employer] threatened to shut off services in your [...] Description 07/17/2025 1:00 PM EST Office Visit [facility] OPTOMETRY [address] [place] [address] TarLatia mccloud, OD [address] [place] [address] 09/04/2025 11:30 AM EST Clinical Support [facility] MEDICINE [address] [place] [address] Lacey Cloud, RN 505 [place] [address] documented as of this encounter Visit Diagnoses Not on filedocumented in this encounter Additional Health Concerns Assessment Noted Time PHQ-9 Depression Total Score: 6 12/22/19 23 1:08 PM EDT documented as of this encounter Care Teams Communications Maintainer Relationship Specialty Start Date End Date Thor Alvarado MD 230 [place] [address] PCP - General Internal Medicine 04/08/14 documented as of this encounter
[2025-06-03 08:54] LABS: Prostate Specific Antigen 0.25 ng/mL (<0.05-4.0)
== END 2025-06-03 06:48 | disposition home or self-care (01) ==
LOC: HO.LAB 06:47
PROVIDERS: PCP Internal Medicine; Visit Provider Urology
DX: C61 Malignant neoplasm of prostate (principal); C77.2 Secondary and unspecified malignant neoplasm of intra-abdominal lymph nodes; Z12.5 Encounter for screening for malignant neoplasm of prostate
CPT/HCPCS: 36415; 84153; 84403

== ENCOUNTER 2025-06-16 13:14 | Outpatient (AMB) | payer OTHER, SELFPAY ==
--- NOTE | 2025-06-16 13:15 | A.OFFVIS_ITS ---
Intake Visit Reasons: 6M follow up/ PSA Total Intake Note: Patient is present for 6 mo follow up Urology Medication:VIT-C Antibiotic Allergy:none Blood Thinner:aspirin Labs done 06/03/25: PSA 0.25, Total Testosterone 9 Sales Support Consultant Required: No Accompanied by: Self / Same As Patient Allergies acetaminophen (From TYLENOL) Adverse Reaction (Unknown, Verified 06/16/25 13:17) CAN'T TAKE BECAUSE OF A HEART CONDITION PER PT ibuprofen (IBUPROFEN) Adverse Reaction (Unknown, Verified 06/16/25 13:17) CAN'T TAKE BECAUSE OF LIVER PROBLEMS PER PT. HPI Comments Details: Merlin is a pleasant Dutch-speaking male. He is a patient of Dr.Esparza- Platt. He is seen for the following urologic conditions - erectile dysfunction in the setting of metastatic prostate cancer, ischemic heart disease Dutch-speaking male. Dutch translation provided by qualified medical director occupational health Discussed prostate cancer result Currently well-controlled Continues to follow with Dr. Brush Follow-up six-month Previous discussion about penile pump - Had interest in penile prosthetic however has significant comorbidities Prostate cancer - metastatic Followed by Dr. Brush at [facility] Diagnosed with metastatic prostate cancer to pulmonary nodes positive on PSMA PET Initial therapy docetaxel plus GnRH plus abiraterone Followed up with 6 cycles, cabazitaxel completed 06/25/202405/30 P 0.25 T 9 PFSH Medical History (Updated 12/12/24 @ 13:28 by Frank Daniel MD) ARABELLA (obstructive sleep apnea) Depressive disorder GERD (gastroesophageal reflux disease) Osteoarthritis, knee Anemia History of prostate cancer History of lung cancer Depression OA (osteoarthritis) of shoulder Surgical History History of esophagogastroduodenoscopy (EGD) Hx of colonoscopy History of surgery of head Hx of hernia repair Family History Father History of prostate cancer Brother History of prostate cancer History of throat cancer Mother No problems noted. Social History Household Members: Spouse Alcohol intake: current Alcohol intake frequency: does not drink Current occupational status: disabled Review of Systems Const Denies chills and Denies fever(s) Card Reports no additional complaints and Denies syncope Resp Denies cough GI Denies abdominal pain and Denies heartburn Reports as per HPI and Denies change in libido Neuro Denies syncope Psych Denies change in libido Endo Denies change in libido Physical Exam Const General: cooperative, healthy appearing, comfortable and no acute distress Orientation/consciousness: patient oriented x3 HEENT Face and sinus: Yes normal facial exam Mouth: moist mucous membranes Neck Neck: Yes normal visual inspection, Yes full ROM and Yes trachea midline Chest Chest palpation & inspection: normal inspection of the chest Resp Effort & Inspection: normal respiratory effort, able to speak in complete sente nces and no respiratory distress GI Inspection: Yes normal to inspection Back/Spine/Pelvis Cervical Spine: normal cervical lordosis Thoracic/Lumbar Spine: thoracic and lumbar spine normal to inspection Skin General skin exam: no rashes or lesions noted Neuro General: patient oriented x3, gait normal, tone normal and moves all extremities Extrem General: Yes normal to inspection and Yes capillary refill normal Assessment & Plan Assessment & Plan (1) Prostate cancer metastatic to intraabdominal lymph node: Code(s): C61 - Malignant neoplasm of prostate; C77.2 - Secondary and unspecified malignant neoplasm of intra-abdominal lymph nodes Category: Medical Plan Six-month follow-up Orders: Orders Prostate Specific Antigen 6 Months C61 - Malignant neoplasm of prostate, C77.2 - Secondary and unspecified malignant neoplasm of intra-abdominal lymph nodes Testosterone, Total 6 Months C61 - Malignant neoplasm of prostate, C77.2 - Secondary and unspecified malignant neoplasm of intra-abdominal lymph nodes Patient Instructions: This note is constructed using voice recognition software. While every effort has been made to ensure accuracy forensic pathologist errors may have been included. Imaging studies, laboratory and physical exam results were discussed and reviewed in detail. No major barriers to patient understanding were identified. An opportunity to ask questions regarding the treatment plan was provided. All questions were answered. The patient expressed understanding and agreement with the above treatment plan. The patient is aware they should contact our office by phone for worsening of their current condition or the appearance of new urologic symptoms. Compliance is encouraged with any medications and followup testing that is ordered. It is a privilege to participate in the urologic care of your patient. If you have any questions or concerns regarding treatment for the above conditions, or other urologic issues, please do not hesitate to contact me. The office telephone contact is [phone]. Sincerely, Dr Frank Daniel MD, [facility] - Urology Compassionate Specialist Care for the Genitourinary System Coding Level of Care Code Est Pt Level 3 (36352) Complex EM visit Add On G2211 Diagnoses Prostate cancer metastatic to intraabdominal lymph node C61; C77.2
--- OUTSIDE RECORDS SUMMARY | 2025-06-16 14:56 | XMS_ITS | Encounter Summary ---
Author Organization [employer] Address [address] [facility] 7t [place] [address] Care Team Providers Care Head Char Filter Tank Tender Name Role Phone Thor Alvarado MD Primary Care Provide r Reason for Visit * Reason Onset Date Comments Med Refill 11/07/2023 Encounter Details Date Type Department Care Team (Late st Contact Info) Description 11/07/2023 Refill [facility] [address] [place], [place] [phone] Thor Alvarado MD [address] [place], [place] [phone] Severe pain Social History Tobacco Use Types [...] t he electric, gas, oil or water [employer] threatened to shut off services in your [...] out of med To be sent to: [facility] #[id number] [place], [place] - [address] [place] [address] AT [facility] documented in this encounter Plan of Treatment Upcoming Encounters Date Type Department Care Team (Late st Contact Info) Description 07/17/2025 1:00 PM EST Office Visit [facility] OPT[facility] [address] [place] [address] Latia Barry, CARLEEN [address] [place] [address] 08/25/2025 1:15 PM EST Office Visit [facility] [address] [place] [phone] Thor Alvarado MD [address] [place] [address] 09/04/2025 11:30 AM EST Clinical Support [facility] [address] [place] [address] Lacey Cloud RN 505 [place] [address] documented as of this encounter Visit Diagnoses Diagnosis Severe pain documented in this encounter Additional Health Concerns Assessment Noted Time PHQ-9 Depression Total Score: 6 12/22/19 23 1:08 PM EDT documented as of this encounter Care Teams Head Char Filter Tank Tender Relationship Specialty Start Date End Date Thor Alvarado MD [address] [place] [address] PCP - General Internal Medicine 04/08/14 documented as of this encounter
--- OUTSIDE RECORDS SUMMARY | 2025-06-16 14:56 | XMS_ITS | Patient Health Record ---
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 [address] [place] [phone] [phone] [id number] CARRIE BECKWITH Self - patient is the [...]
--- OUTSIDE RECORDS SUMMARY | 2025-06-16 14:56 | XMS_ITS | Encounter Summary ---
Author Organization [employer] Address [address] [facility] 7t [place] [address] Care Team Providers Care Instrumentation Engineer Name Role Phone Thor Alvarado MD Primary Care Provide r Reason for Visit * Reason Onset Date Comments Med Refill 03/25/2025 Encounter Details Date Type Department Care Team ([facility] st Contact Info) Description 03/25/2025 Telephone [facility] [address] [place] [address] Thor Alvarado MD 230 [place], [place] [phone] Med Refill Social History Tobacco Use Types [...] immediate release tablet To be sent to: [facility] #[id number] [place], [place] - [address] [place] [address] AT [facility] documented in this encounter Plan of Treatment Upcoming Encounters Date Type Department Care Team (Late st Contact Info) Description 07/17/2025 1:00 PM EST Office Visit [facility] OPTOMETRY [address] [place] [address] Latia Barry, CARLEEN [address] [place] [address] 08/25/2025 1:15 PM EST Office Visit [facility] [address] [place] [address] Thor Alvarado MD [address] [place] [address] 09/04/2025 11:30 AM EST Clinical Support [facility] [address] [place] [address] Lacey Cloud, ROMERO [address] [place] [address] documented as of this encounter Visit Diagnoses Not on filedocumented in this encounter Additional Health Concerns Assessment Noted Time PHQ-9 Depression Total Score: 0 07/15/20 24 2:51 PM EST documented as of this encounter Care Teams Instrumentation Engineer Relationship Specialty Start Date End Date Thor Alvarado MD [address] [place] [address] PCP - General Internal Medicine 04/08/14 documented as of this encounter
--- OUTSIDE RECORDS SUMMARY | 2025-06-16 14:56 | XMS_ITS | Encounter Summary ---
Author Organization [employer] Address [address] [facility] 7t [place] [address] Care Team Providers Care Beamster Name Role Phone Thor Alvarado MD Primary Care Provide r Reason for Visit * Reason Onset Date Comments Appointment Request 03/13/2025 Encounter Details Date Type Department Care Team ([facility] st Contact Info) Description 03/13/2025 Telephone [facility] 230 [place], [place] [phone] Thor Alvarado MD 230 [place], [place] [phone] Appointment Request Social History Tobacco Use Types [...] a family emergency and is flying to [place] today. Contact pt at [phone] (sami) documented in this encounter Plan of Treatment Upcoming Encounters Date Type Department Care Team ([facility] st Contact Info) Description 07/17/2025 1:00 PM EST Office Visit [facility] OPTOMETRY [address] [place] [address] Latia Barry, OD [address] [place] [address] 08/25/2025 1:15 PM EST Office Visit [facility] MED[facility]INE [address] [place] [address] Thor Alvarado MD 230 [place] [address] 09/04/2025 11:30 AM EST Clinical Support [facility] [address] [place] [address] Lacey Cloud, ROMERO 505 [place] [address] documented as of this encounter Visit Diagnoses Not on filedocumented in this encounter Additional Health Concerns Assessment Noted Time PHQ-9 Depression Total Score: 0 07/15/20 24 2:51 PM EST documented as of this encounter Care Teams Beamster Relationship Specialty Start Date End Date Thor Alvarado MD 230 [place] [address] PCP - General Internal Medicine 04/08/14 documented as of this encounter
--- OUTSIDE RECORDS SUMMARY | 2025-06-16 14:56 | XMS_ITS | Encounter Summary ---
Author Organization [employer] Address [address] [facility] 7t [place] [address] Care Team Providers Care Internet And E Business Project Manager Name Role Phone Thor Alvarado MD Primary Care Provide r Reason for Visit * Reason Onset Date Comments Med Refill 05/17/2023 Encounter Details Date Type Department Care Team ([facility] st Contact Info) Description 05/17/2023 Telephone [facility] [address] [place] [address] Thor Alvarado MD 230 [place], [place] [phone] Med Refill Social History Tobacco Use Types [...] t he electric, gas, oil or water [employer] threatened to shut off services in your [...] Description 07/17/2025 1:00 PM EST Office Visit [facility] OPTOMETRY [address] [place] [address] Latia Barry, OD [address] [place] [address] 08/25/2025 1:15 PM EST Office Visit [facility] [address] [place] [address] Thor Alvarado MD [address] [place] [address] 09/04/2025 11:30 AM EST Clinical Support [facility] [address] [place] [address] Lacey Cloud RN 505 [place] [address] documented as of this encounter Visit Diagnoses Not on filedocumented in this encounter Additional Health Concerns Assessment Noted Time PHQ-9 Depression Total Score: 6 12/22/19 23 1:08 PM EDT documented as of this encounter Care Teams Internet And E Business Project Manager Relationship Specialty Start Date End Date Thor Alvarado MD [address] [place] [address] PCP - General Internal Medicine 04/08/14 documented as of this encounter
--- OUTSIDE RECORDS SUMMARY | 2025-06-16 14:56 | XMS_ITS | Encounter Summary ---
Author Organization [employer] Address [address] [facility] 7t [place] [address] Care Team Providers Care Welding Machine Operator Gas Name Role Phone Thor Alvarado MD Primary Care Provide r Reason for Visit * Reason Onset Date Comments Med Refill 06/23/2024 Encounter Details Date Type Department Care Team ([facility] st Contact Info) Description 06/23/2024 Telephone [facility] 230 [place] [address] Thor Alvarado MD 230 [place], [place] [phone] Med Refill Social History Tobacco Use Types [...] t he electric, gas, oil or water [employer] threatened to shut off services in your [...] immediate release tablet To be sent to: [facility] #[id number] [place], [place] - [address] [place] [address] AT [facility] documented in this encounter Plan of Treatment Upcoming Encounters Date Type Department Care Team (Late st Contact Info) Description 07/17/2025 1:00 PM EST Office Visit [facility] OPTOMETRY [address] [place] [address] Latia Barry OD [address] [place] [address] 08/25/2025 1:15 PM EST Office Visit [facility] [address] [place] [address] Thor Alvarado MD 230 [place] [address] 09/04/2025 11:30 AM EST Clinical Support [facility] [address] [place] [address] Lacey Cloud RN 505 [place] [address] documented as of this encounter Visit Diagnoses Not on filedocumented in this encounter Additional Health Concerns Assessment Noted Time PHQ-9 Depression Total Score: 6 12/22/19 23 1:08 PM EDT documented as of this encounter Care Teams Welding Machine Operator Gas Relationship Specialty Start Date End Date Thor Alvarado MD [address] [place] [address] PCP - General Internal Medicine 04/08/14 documented as of this encounter
--- OUTSIDE RECORDS SUMMARY | 2025-06-16 14:56 | XMS_ITS | Encounter Summary ---
Author Organization [employer] Address [address] [facility] 7t [place] [address] Care Team Providers Care Nail Setter Name Role Phone Thor Alvarado MD Primary Care Provide r Reason for Visit * Reason Onset Date Comments Med Refill 11/17/2024 Encounter Details Date Type Department Care Team ([facility] st Contact Info) Description 11/17/2024 Telephone [facility] [address] [place] [address] Thor Alvarado MD 230 [place], [place] [phone] Med Refill Social History Tobacco Use Types [...] immediate release tablet To be sent to: [facility] #[id number] [place], [place] - [address] [facility] documented in this encounter Plan of Treatment Upcoming Encounters Date Type Department Care Team ([facility] st Contact Info) Description 07/17/2025 1:00 PM EST Office Visit [facility] OPTOMETRY [address] [place] [address] Latia Barry OD [address] [place] [address] 08/25/2025 1:15 PM EST Office Visit [facility] MED[facility] [address] [place] [address] Thor Alvarado MD 230 [place] [address] 09/04/2025 11:30 AM EST Clinical Support [facility] [address] [place] [address] Lacey Cloud RN 505 [place] [address] documented as of this encounter Visit Diagnoses Not on filedocumented in this encounter Additional Health Concerns Assessment Noted Time PHQ-9 Depression Total Score: 0 07/15/20 24 2:51 PM EST documented as of this encounter Care Teams Nail Setter Relationship Specialty Start Date End Date Thor Alvarado MD [address] [place] [address] PCP - General Internal Medicine 04/08/14 documented as of this encounter
--- OUTSIDE RECORDS SUMMARY | 2025-06-16 14:56 | XMS_ITS | Clinical Summary ---
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) reviewed by PCP 01/28 Assessment & Plan (02/10/2025 9:01 PM EDT): Timeline: -02/10/25: Initial group - utox as expected, 21 pills less than expected (Agreement & BPI completed) HFrEF (heart failure with reduced ejection fract ion) 07/15/2024 Assessment & Plan (05/14/2025 2:18 PM EDT): Under the care of [facility] cardiology, last seen 05/09/2024 They recommended to continue: Bisoprolol 10 mg po daily Dapaglifozin 10 mg po daily Entresto 49/51 mg BID F/u 6 months Assessment & Plan (07/15/2024 3:04 PM EST): Under the care of [facility] cardiology, last seen 05/09/2024 They recommended to [...] -UTOX as expected. Pill count discrepancy. See lawn mower operator for further details. Assessment & Plan [...] mg po TID and Oxycodone. Seen at [facility], received steroid injections both [...] mg po TID and Oxycodone. Seen at [facility], received steroid injections both [...] 300 mg po TID. Will refer to [facility] Follow up with me [...] injury. Seen in the past by a cheese tester, Dr. Silva, and orthopedist specialist at [facility]. Pt is not a good candidate [...] with us. Pt saw orthopaedic specialist in [place] 11/20/2024 who stated he was not a good surgical candidate given his dependency of chronic narcotics Assessment & Plan (10/09/2024 2:38 PM EST): Patient here for a follow up He has chronic bilateral shoulder pain, described as intensity 8/10. Pain worsens with movement. Difficulty with overhead activity. Right-handed. No injury. Seen in the past by a cheese tester, Dr. Silva, and orthopedist specialist at [facility]. Pt is not a good candidate [...] like to see an orthopaedic specialist in [place] Assessment & Plan (01/22/2024 2:56 PM EDT): Patient here for a follow up He has chronic bilateral shoulder pain, described as intensity 8/10. Pain worsens with movement. Difficulty with overhead activity. Right-handed. No injury. Seen in the past by a cheese tester, Dr. Silva, and orthopedist specialist at [facility]. Pt is not a good candidate [...] contract with us. He was seen by [facility] 10/31/2023 Assessment & Plan (09/27/2023 9:16 AM EST): Patient here for a follow up He has chronic bilateral shoulder pain, described as intensity 8/10. Pain worsens with movement. Difficulty with overhead activity. Right-handed. No injury. Seen in the past by a cheese tester, Dr. Silva, and orthopedist specialist at [facility]. Pt is not a good candidate [...] with us. He was seen by [facility] 05/22/2023 for a steroid injection. Assessment & Plan (04/24/2023 12:54 PM EDT): Patient here for a follow up He has chronic bilateral shoulder pain, described as intensity 8/10. Pain worsens with movement. Difficulty with overhead activity. Right-handed. No injury. Seen in the past by a cheese tester, Dr. Silva, and orthopedist specialist at [facility]. Pt is not a good candidate [...] would like to be referred back to [facility] for a steroid injection. He has had good results with these in the past. Assessment & Plan (09/14/2022 12:24 PM EST): Patient withchronic bilateral shoulder pain intensity 8/10 Patient has a Hx of persistent severe bilateral shoulder pain L>R Pain worsens with movement. Difficulty with overhead activity. Right-handed. No injury. Seen in the past by a cheese tester, Dr. Silva, and orthopedist, [facility], in the past. Pt is not [...] Last visit he was referred back to [facility], pt received a steroid injection back [...] HGB 12.6 (L) 08/19/2020 Pt admitted to [facility] 11/24/2019 after Oncologist performed routine labs and [...] of chronic persistent anemia, evaluated by a Chief Maintenance Supervisor at [facility] on 10/04/2011. They apparently repeated his stool [...] (09/14/2022 1:11 PM EST): Pt admitted to [facility] 11/24/2019 after Oncologist performed routine labs and [...] of chronic persistent anemia, evaluated by a Chief Maintenance Supervisor at [facility] on 10/04/2011. They apparently repeated his stool [...] to AICD. Pt was seen by Dr Heart GI back then and underwent an EGD [...] Encounters Date Type Department Care Team Description 06/09/2025 Telephone [facility] [address] [place] [address] Thor Alvarado MD August06/03/2025 Orders Only GENERIC EXTERNAL DATA DEPARTMENT Provider, Generic External Data 05/29/2025 9:30 AM EDT Clinical Support [facility] [address] [place] [address] Lacey Cloud RN Chronic pain of both shoulders (Primary Dx) 05/29/2025 Refill [facility] [address] [place] [address] Lacey Cloud RN 05/29/2025 Travel 05/20/2025 Refill [facility] [address] [place] [address] Thor Alvarado MD Severe pain 05/14/2025 2:00 PM EDT Office Visit [facility] [address] [place] [address] Thor Alvarado MD Metastatic castration-resistant adenocarcinoma of [...] Encounter for immunization 05/14/2025 Travel 05/13/2025 Telephone [facility] [address] [place] [address] Thor Alvarado MD chart prep 05/13/2025 Telephone [facility] [address] [place] [address] Thor Alvarado MD chartprep; Error (VOID this visit) 04/21/2025 Refill [facility] [address] [place] [address] Thor Alvarado MD Severe pain 03/25/2025 Travel 03/25/2025 Refill [facility] [address] [place] [address] Lacey Cloud RN Severe pain 03/25/2025 Telephone [facility] [address] [place] [address] Thor Alvarado MD Med Refill 03/16/2025 Telephone [facility] [address] [place], [place] [phone] Lacey Cloud, ROMERO pain group visit from Last 3 Months Immunizations Immunization Administration [...] Description 07/17/2025 1:00 PM EST Office Visit [facility] [address] [place] [address] Latia Barry, OD [address] [place] [address] 08/25/2025 1:15 PM EST Office Visit [facility] [address] [place] [address] Thor Alvarado MD [address] [place] [address] 09/04/2025 11:30 AM EST Clinical Support [facility] [address] [place] [phone] Lacey Cloud, [place] [address] [place] [address] Health Maintenance Due Date Last Done Comments Derm Melanoma Skin Check 1945 Hepatitis C Screening 01/10/1964 Zoster Vaccines (2 of 3) 07/06/2015 05/11/2015 RSV Patients and Patients Aged 60 years or older (1 - 1-dose 75+ series) 2021 COVID-19 Vaccine ( season) 2025 10/09/2022, 08/08/2021, 10/21/2020, Additional history exists Alcohol/Substance Use Screening 07/15/2025 07/15/2024 Depression Screening 07/15/2025 07/15/2024, 07/15/20 SDOH Screening 10/09/2025 10/09/2024 Tobacco Screening 03/03/2026 03/03/2025 Lipid Panel 03/09/2030 03/09/2025, 09/06, 03/17/2021 DTaP/Tdap/Td Vaccines (3 - Td or [...] Procedure Name Priority Date/Time Associated Diagnosis Comments TESTOSTERONE, TOTAL, MALES (ADULT), [place] Routine 06/03/2025 6:58 AM EDT PSA, TOTAL Routine 06/03/2025 6:58 AM EDT POCT KWAME-14 URINE DRUG SCREEN Routine 05/29/2025 [...] Routine 03/09/2025 8:33 AM EDT Mixed hyperlipidemia from Last 3 Months or Most Recently Relevant to Health Maintenance Results * (ABNORMAL) Testosterone, Total, males (Adult), IA (06/03/2025 6:58 AM EDT) [facility] Testosterone, Total 9(A) 250 - 1100 ng/dL [facility] Comment:Men with clinically significant hypogonadalsymptoms and testosterone values repeatedly inthe range of the 200-300 ng/dL or less, maybenefit from testosterone treatment afteradequate risk and benefits counseling.For additional information, please refer tohttp://education.K[employer].ePub Direct/faq/PmrhuAmhhhmitatdyCRZXPPDSD536(This link is being provided for informational/educational purposes only.)This test was developed and its analytical performancecharacteristics have been determined by [employer] [place], [place]. It hasnot been cleared or approved by the U.S. Food and DrugAdministration. This assay has been validated pursuantto the CLIA regulations and is used for clinicalpurposes.THIS TEST WAS PERFORMED AT:[employer]FS[address] [place] [address]EZDFNMRALICIA ALBA MD,PHD 06/03/2025 6:58 AM EDT 06/03/2025 6:58 AM EDT Generic External Data Provider LAB BLOOD ORDERAB LES Final Result Performing Organization Address City/[facility]/ZIP Co de Phone Number [facility] [address] [place] [phone] * PSA,Total (06/03/2025 6:58 AM EDT) Prostate Specific Antigen 0.25 <0.05 - 4.0 ng/mL [facility] Comment:PSA methodology: Carmella Hart i ChemiluminescentMicroparticle Immunoassay (CMIA) 06/03/2025 6:58 AM EDT 06/03/2025 6:58 AM EDT Generic External Data Provider LAB BLOOD ORDERAB LES Final Result Performing Organization Address City/[facility] Co de Phone Number [facility] [address] [place] [phone] * (ABNORMAL) POCT KWAME-14 Urine Drug [...] - 05/29/2025 9:30 AM EDT .UTOX cup Lot#[id number] Exp. 05/12/26 Internal Pass Control us Thor Platt MD POINT OF CARE TEST EN TER/EDIT ORDERABLES Final Result * XR Hand 3+Views Bilateral (05/14/2025 3:45 PM EDT) Anatomical Region Laterality Modality Upper Extremities, Hand Bilateral Radiogra phic Imaging 05/14/2025 3:45 PM EDT Narrative 05/14/2025 4:40 PM EDT [address] [address] XRay Report Signed Patient: Merlin Guerra MR#: [id number] 4 : 1945 Acct:[id number] Age/Sex: 80 / M ADM Date: 05/14/25 Loc: .[facility] Attending Dr: Thor Ontiveros MD Ordering Physician: Thor Ontiveros MD Date of Service: 05/14/25 Procedure(s): XR Hand Bilat min 3v Accession Number(s): [id number] cc: Thor Ontiveros MD Reason for Exam: [...] 05/14/25 1637 DD/ 1545 TD/TT: 05/14/25 1600 Transit Man: RAMIN Procedure Note Donotuseinterpreter, Image - 05/14/[address] [address] XRay Report Signed Patient: Fariha Guerra#: [id number] 4 : 1945cct:[id number] Age/Sex: 80 / MADM Date: 05/14/25 Loc: HO.[facility] Attending Dr: Thor Ontiveros MD Ordering Physician: Thor Ontiveros MD Date of Service: 05/14/25 Procedure(s): XR Hand Bilat min 3v Accession Number(s): [id number] cc: Thor Ontiveros MD Reason for Exam: [...] 05/14/25 1637 DD/ 1545 TD/TT: 05/14/25 1600 Transit Man: HB us Thor Platt MD IMG XR PROCEDURES Fin al Result * (ABNORMAL) CBC auto differential (05/14/2025 2:54 PM EDT) White Blood Count 6.8 4.8 - 10.8 X10*3/uL [facility] Red Blood Count 4.24(L) 4.60 - 5.80 X10*6/uL [facility] Hemoglobin 13.0(L) 14.0 - 18.0 g/dl [facility] Hematocrit 40.3(L) 42.0 - 52.0 % [facility] Mean Corpuscular Volume 95.0 80.0 - 98.[address] [facility] Mean Corpuscular Hemoglobin 30.7 27.0 - 33.[address] [facility] Mean Corpuscular HGB Conc 32.3 31.0 - 36.0 g/dl [facility] Red Cell Distribution Width 13.3 11.0 - 16.0 % [facility] Platelet Count 188 160 - 400 X10*3/uL [facility] Mean Platelet Volume 8.8(L) 9.4 - 12.[address] [facility] Neutrophils Percent Auto 71.0 45 - 73 % [facility] Imm Gran Pct Auto 0.3 0.0 - 0.4 % [facility] Lymphocytes Percent Auto 20.8 20 - 40 % [facility] Monocytes Percent Auto 6.8 2 - 11 % [facility] Eosinophils Percent Auto 0.7 0 - 4 % [facility] Basophils Percent Auto 0.4 0 - 2 % [facility] NRBC Pct Auto 0.0 0.0 - 0.2 /100WBC [facility] Neutrophils Absolute Auto 4.8 2.0 - 8.3 x10*3/uL [facility] Imm Gran Abs Auto 0.02 0.00 - 0.03 X10*3/uL [facility] Lymphocytes Absolute Auto 1.4 1.2 - 4.9 X10*3/uL [facility] Monocytes Absolute Auto 0.5 0.1 - 1.2 X10*3/uL [facility] Eosinophils Absolute Auto 0.1 0.0 - 0.4 X10*3/uL [facility] Basophils Absolute Auto 0.0 0.0 - 0.2 X10*3/uL [facility] NRBC Abs Auto 0.000 0.0 - 0.012 X10*3/uL [facility] Blood Venous blood specimen / Unknown 05/14/2025 2:54 PM EDT 05/14/2025 4:14 PM EDT Thor Platt MD LAB BLOOD ORDERABLES Final Result Performing Organization Address City/[facility]/ZIP Co de Phone Number [facility] [address] [place] [phone] * Rheumatoid Factor (05/14/2025 2:54 PM EDT) Pathologist [facility] Rheumatoid Factor <13.0 <15.0 IU/mL [facility] Blood Venous blood specimen / Unknown 05/14/2025 2:54 PM EDT 05/14/2025 5:44 PM EDT Thor Platt MD LAB BLOOD ORDERABLES Final Result Performing Organization Address City/[facility]/ZIP Co de Phone Number [facility] [address] [place] [phone] * (ABNORMAL) C-reactive Protein (05/14/2025 2:54 PM EDT) C Reactive Protein 0.60(H) < or = 0.50 mg/dL [facility] Blood Venous blood specimen / Unknown 05/14/2025 2:54 PM EDT 05/14/2025 4:14 PM EDT Thor Platt MD LAB BLOOD ORDERABLES Final Result Performing Organization Address [facility]/ZIP Co de Phone Number [facility] [address] [place] [phone] * PAULA Screen,IFA, with Reflex to Titer and Pattern (05/14/2025 2:54 PM EDT) Anti Nuclear Antibody Screen NEGATIVE NEGATIVE [facility] Comment:PAULA IFA is a first l [...] clinicallysuspected inflammatory myopathies.AC-0: NegativeInternational Consensus on PAULA Patterns(https://doi.org/10.1515/qepg-8190-0779)For additional information, please refer tohttp://education.Refresh Body/faq/EJJ542(This link is being provided for informational/educational purposes only.)THIS TEST WAS PERFORMED AT:[facility] [place] [id number] KEMP MD Blood Venous blood specimen / Unknown 05/14/2025 2:54 PM EDT 05/14/2025 5:44 PM EDT Thor Platt MD LAB BLOOD ORDERABLES Final Result [facility] [address] [place] [phone] * Basic Metabolic Panel (04/09/2025 1:08 PM EDT) Sodium 138 135 - 145 mmol/L [facility] Potassium 4.1 3.3 - 5.1 mmol/L [facility] Chloride 103 96 - 108 mmol/L [facility] Carbon Dioxide 27 22 - 29 mmol/L [facility] Anion Gap 12 12 - [address] [facility] Urea Nitrogen (BUN) 15 9 - 16 mg/dL [facility] Creatinine, Serum 0.84 0.5 - 1.4 mg/dL [facility] Estimated Glomerular Filt Rate >[address] [facility] Comment:Chronic Kidney Disea se: Estimated GFR < 60 mL/min/1.26n3Rwbqek Kidney Disease: Estimated GFR < 15 mL/min/1.73m2 Glucose 105 60 - 115 mg/dL [facility] Calcium 9.1 8.4 - 10.2 mg/dL [facility] Blood Venous blood specimen / Unknown 04/09/2025 1:08 PM EDT 04/09/2025 4:03 PM EDT us Thor Platt MD LAB BLOOD ORDERABLES Final Result [facility] [address] [place] [phone] * Lipid Panel, Standard (03/09/2025 8:33 AM EDT) Triglycerides 66 <150 mg/dL [facility] Comment:Desirable Triglyceri de: less than 150 mg/dLBorderline High Triglyceride 150-199 mg/dLHigh Triglyceride: 200-499 mg/dLVery High Triglyceride: greater than or equal to 5OO mg/dL Cholesterol 151 <200 mg/dL [facility] Comment:Desirable Cholestero l: less than 200 mg/dLBorderline High Cholesterol: 200-239 mg/dLHigh Cholesterol: greater than 239 mg/dL LDL Cholesterol Calculated 93 <100 mg/dL [facility] Comment:Desirable LDL: less than 100 mg/dLNear Optimal/Above Optimal LDL: 110- 129 mg/dLBorderline High LDL: 130-159 mg/dLHigh LDL: 160-189 mg/dLVery High LDL: greater than or equal to 190 mg/dL HDL Cholesterol 45 >40 mg/dL [facility] Comment:Desirable HDL: great er than 40 mg/dL Note: This HDL assay may give artificially low results in patients with liver disease. Blood Venous blood specimen / Unknown 03/09/2025 8:33 AM EDT 03/09/2025 11:22 AM EDT Thor Platt MD LAB BLOOD ORDERABLES Final Result [facility] [address] [place] [phone] from Last 3 Months or Most Recently Relevant to Health Maintenance Insurance [facility] OPTIONS (O D-SNP) [place] [id number] Care Teams Media Services Director Relationship Specialty Start Date End Date Thor Alvarado MD [address] [place] [phone] PCP - General Internal Medicine 04/08/14
--- OUTSIDE RECORDS SUMMARY | 2025-06-16 14:56 | XMS_ITS | Encounter Summary ---
Author Organization [employer] Address [address] [facility] 7t [place] [address] Care Team Providers Care Air Analyst Name Role Phone Thor Alvarado MD Primary Care Provide r Reason for Visit * Reason Onset Date Comments Med Refill 01/28/2025 Encounter Details Date Type Department Care Team ([facility] st Contact Info) Description 01/28/2025 Telephone [facility] [address] [place] [address] Thor Alvarado MD [address] [place], [place] [phone] Med Refill Social History Tobacco Use Types [...] release tablet To be sent to: Jesse [address] [address] documented in this encounter Plan of Treatment Upcoming Encounters Date Type Department Care Team ([facility] st Contact Info) Description 07/17/2025 1:00 PM EST Office Visit [facility] OPTOMETRY [address] [place] [address] Latia Barry OD [address] [place] [address] 08/25/2025 1:15 PM EST Office Visit [facility] MEDICINE [address] [place] [phone] Thor Alvarado MD [address] [place] [address] 09/04/2025 11:30 AM EST Clinical Support [facility] MED[facility] [address] [place] [address] Lacey Cloud RN [address] [place] [address] documented as of this encounter Visit Diagnoses Not on filedocumented in this encounter Additional Health Concerns Assessment Noted Time PHQ-9 Depression Total Score: 0 07/15/20 24 2:51 PM EST documented as of this encounter Care Teams Air Analyst Relationship Specialty Start Date End Date Thor Alvarado MD [address] [place] [phone] PCP - General Internal Medicine 04/08/14 documented as of this encounter
--- OUTSIDE RECORDS SUMMARY | 2025-06-16 14:56 | XMS_ITS | Encounter Summary ---
Author Organization [employer] Address [address] [facility] 7t [place] [address] Care Team Providers Care Electric Motor Fitter Name Role Phone Thor Alvarado MD Primary Care Provide r Reason for Visit * Reason Comments Med Refill Encounter Details Date Type Department Care Team (Late st Contact Info) Description 03/28/2023 Refill [facility] [address] [place] [address] Thor Alvarado MD [address] [place], [place] [phone] Social History Tobacco Use Types Packs/Day Years [...] Description 07/17/2025 1:00 PM EST Office Visit [facility] OPT[facility] [address] [place], [place] [phone] Latia Barry, OD [address] [place], [place] [phone] 08/25/2025 1:15 PM EST Office Visit [facility] [address] [place] [phone] Thor Alvarado MD [address] [place] [address] 09/04/2025 11:30 AM EST Clinical Support [address] [address] Lacey Cloud, RN [address] [place] [address] documented as of this encounter Visit Diagnoses Not on filedocumented in this encounter Additional Health Concerns Assessment Noted Time PHQ-9 Depression Total Score: 6 12/22/19 23 1:08 PM EDT documented as of this encounter Care Teams Electric Motor Fitter Relationship Specialty Start Date End Date Thor Alvarado MD [address] [place] [phone] PCP - General Internal Medicine 04/08/14 documented as of this encounter
--- OUTSIDE RECORDS SUMMARY | 2025-06-16 14:56 | XMS_ITS | Encounter Summary ---
Author Organization [employer] Address 75 [facility] 7t [place] [address] Care Team Providers Care Insurance Claims Examiner Name Role Phone Thor Alvarado MD Primary Care Provide r Reason for Visit * Reason Comments Med Refill Encounter Details Date Type Department Care Team ([facility] st Contact Info) Description 11/16/2023 Refill [facility] P[facility]S [address] [place], [place] [phone] Thor Alvarado MD [address] [place], [place] [phone] Social History Tobacco Use Types Packs/Day Years [...] 1:00 PM EST Office Visit [facility] OPTOMETRY [address] [place] [address] Latia Barry, OD [address] [place] [address] 08/25/2025 1:15 PM EST Office Visit [facility] MEDICINE [address] [place] [phone] Thor Alvarado MD [address] [place] [phone] 09/04/2025 11:30 AM EST Clinical Support [facility] [address] [place] [address] Lacey Cloud, RN [address] [place] [address] documented as of this encounter Visit Diagnoses Not on filedocumented in this encounter Additional Health Concerns Assessment Noted Time PHQ-9 Depression Total Score: 6 12/22/19 23 1:08 PM EDT documented as of this encounter Care Teams Insurance Claims Examiner Relationship Specialty Start Date End Date Thor Alvarado MD [address] [place] [phone] PCP - General Internal Medicine 04/08/14 documented as of this encounter
== END 2025-06-16 13:32 | disposition home or self-care (01) ==
LOC: HO.HUSH 13:15
PROVIDERS: PCP Internal Medicine; Visit Provider Urology
DX: C61 Malignant neoplasm of prostate (principal); C77.2 Secondary and unspecified malignant neoplasm of intra-abdominal lymph nodes
CPT/HCPCS: 99213; G2211

== ENCOUNTER → 2025-06-16 13:14 | Outpatient (BNVA) | payer OTHER, SELFPAY | PROVIDERS: PCP Internal Medicine; Visit Provider Urology | DX: C61 Malignant neoplasm of prostate (principal); C77.2 Secondary and unspecified malignant neoplasm of intra-abdominal lymph nodes | CPT/HCPCS: 99212 ==